=== PATIENT | male | born 1975 | race African-American/Black ===

== ENCOUNTER 2021-01-31 17:29 | Emergency (ER) | payer MEDICAID, SELFPAY ==
[2021-01-31 17:30] VITALS: BP 229/207; PULSE 106; RESP 24; TEMP 37.6; O2SAT 97; BMI 22.8
--- NOTE | 2021-01-31 18:41 | EDS_ITS ---
HPI History of Present Illness Chief Complaint: Abd Pain Informant: patient Narrative Narrative: 46-year-old male presenting to the emergency department with abdominal pain. Patient states that he has had abdominal pain in his upper abdomen for years and years. He states it got worse on December 03. Since that time he has been dealing with it taking Zantac. States he does not have a current doctor. Patient states that he has been eating very little because when he eats it hurts. He notes his stool has been darker than normal. No natalee blood with it. He denies any vomiting of blood. [facility], [facility] Medical History Lupus Home Medications pantoprazole [Protonix] 40 mg PO DAILY #30 tab 01/31/21 [Rx Last Taken Unknown] sucralfate [Carafate] 1 g PO Q6H #56 tab 01/31/21 [Rx Last Taken Unknown] Allergy/AdvReac Type Severity Reaction Status Date / Time No Known Allergies Allergy Verified 01/31/21 17:34 Social History (Updated 01/31/21 @ 18:[address] Inderjit Aguilar DO) current gender identity: male Smoking Status: Current every day smoker tobacco type: cigars ROS ROS ED Constitutional Constitutional ED: Denies chills or weight loss Eyes Eyes: Denies change in vision or diplopia ENT ENT ED: Denies ear pain, rhinorrhea or sore throat Cardiovascular Cardiovascular: Denies chest pain, orthopnea, palpitations or racing heartbeat Respiratory/Chest Respiratory/Chest: Denies cough, dyspnea or orthopnea Gastrointestinal Gastrointestinal: Reports abdominal pain; Denies diarrhea, nausea or vomiting Genitourinary Genitourinary ED: Denies dysuria, hematuria or urinary frequency Musculoskeletal Musculoskeletal: Denies arthralgias or myalgias Integumentary Denies abscess or rash Neurologic Neurologic: Denies headache(s) or weakness Psychiatric Psychiatric: Denies anxiety, depression, suicidal ideation or suicidal thoughts Endocrine Endocrinology: Denies polydipsia, polyphagia or polyuria Allergic/Immunologic Allergic/Immunologic ED: Denies mouth swelling, tongue swelling or urticaria EXAM Physical Exam Narrative Exam Narrative: Patient appears uncomfortable holding his abdomen pacing around the room Const Vital Signs: 01/31/21 17:30 01/31/21 20:16 Temperature 99.6 F H Temperature Source Oral Pulse Rate 106 H 78 Respiratory Rate 24 H 18 Blood Pressure 229/207 H 133/102 H Blood Pressure Mean 214 112 Pulse Ox 97 97 Oxygen Delivery Method Room Air Room Air Positive well nourished and well developed General Appearance ED: well developed HEENT Reports normocephalic, head/scalp atraumatic, TM's clear and moist mucous membranes Negative for trauma Tympanic Membrane ED: Yes TM's clear Eyes PERRL and EOMs intact bilaterally Neck no lymphadenopathy, supple and no JVD Resp normal respiratory effort and clear to auscultation bilaterally Cardio regular rate, regular rhythm and no murmurs GI Auscultation: normoactive bowel sounds Palpation: soft, tender epigastric and guarding; Negative for rebound tenderness present Back/Spine no CVA tenderness and normal ROM Extremity normal to inspection General Extremety ED: Negative for edema General Extremity: Negative for edema Neuro oriented x3 and CN's II-XII intact bilaterally Sensorium / Orientation: alert Motor Exam: strength 5/5 throughout Psych mental status grossly normal Mood & Affect: Negative for depressed or tearful Skin no rashes or lesions noted and no wounds MDM MDM MDM Narrative Medical decision making narrative: Patient's hemoglobin 15.8 with a white count of 4.9. CMP negative. Lipase 36. Patient received a GI cocktail which he states did help his pain he also received morphine and Zofran and fluids. Think the patient most likely has gastritis versus stomach ulcer. We will place him on Pro tonix and Carafate. I will refer him to gastroenterology. Patient was advised to monitor his stool and return if worsening or concerns Lab Data Attestation: I reviewed the patient's lab results. Labs: Laboratory Results - last 24 hr 01/31/21 01/31/21 18:32 18:32 WBC 4.9 RBC 5.30 Hgb 15.8 Hct 48.2 MCV 90.9 MCH 29.8 MCHC 32.8 RDW Std Deviation 45.5 H RDW Coeff of Tristen 13.4 Plt Count 274 MPV 8.4 Immature Gran % (Auto) 0.200 Neut % (Auto) 43.8 L Lymph % (Auto) 43.3 H [place] % (Auto) 8.0 Eos % (Auto) 4.1 Baso % (Auto) 0.6 Absolute Neuts (auto) 2.1 Absolute Lymphs (auto) 2.11 Nucleated RBC % 0 Sodium 141 Potassium 3.5 Chloride 106 Carbon Dioxide 27.0 Anion Gap 8 BUN 8 Creatinine 0.89 Estim Creat Clear Calc 121.76 Est GFR (MDRD) Af Amer 119 Est GFR (MDRD) Non-Af 98 BUN/Creatinine Ratio 9.0 L Glucose 97 Calcium 8.9 Total Bilirubin 0.40 AST 13 L ALT 23 Alkaline Phosphatase 85 Total Protein 7.8 Albumin 3.8 Globulin 4.0 Albumin/Globulin Ratio 1.0 Lipase 36 L Discharge Plan Triage Chief Complaint: Abd Pain ED Provider: Inderjit Aguilar Dx/Rx/DC Orders Clinical Impression: Gastritis, Abdominal pain, acute Instructions: ED PEPTIC ULCER vs GASTRITIS Prescriptions: New pantoprazole [Protonix] 40 mg tablet,delayed release (DR/EC) 40 mg PO DAILY Qty: 30 RF: 0 sucralfate [Carafate] 1 gram tablet 1 g PO Q6H Qty: 56 RF: 0 Primary Care Provider: Care Physician,No Primary Referrals: Friend,Mitchell, DO [STAFF PHYSICIAN] - As soon as possible Care Physician,No Primary [Primary Care Provider] - Disposition Disposition: Home, Self Care
[2021-01-31 19:04] LABS: Absolute Lymphocyte Count 2.11 X10^3/uL (0.83-4.51); Absolute Neutrophil Count 2.1 X10^3/uL (2.0-7.7); Basophil# 0.03 X10^3/uL; Basophil% 0.6 % (0-1); Eosinophils% 4.1 % (0-5); Hematocrit 48.2 % (40-54); Hemoglobin 15.8 g/dL (13.0-16.5); Lymphocyte # 2.11 X10^3/ul (0.83-4.51); Lymphocyte % 43.3 % (19-41); Mean Corp Hgb Conc 32.8 g/dL (32-36); Mean Corpuscular Hgb 29.8 pg (27.0-32.0); Mean Corpuscular Volume 90.9 fL (80-94); Mean Platelet Vol. 8.4 fl (6.2-12.0); Monocyte# 0.39 X10^3/uL; NRBC Flagged by Analyzer 0 % (0-5); Neutrophil # 2.13 X10^3/uL (2.7-7.7); Neutrophil % 43.8 % (47-70); Platelet Count 274 K/mm3 (150-450); RBC Distribution Width CV 13.4 % (11.6-14.6); RBC Distribution Width SD 45.5 fl (35.1-43.9); White Blood Count 4.9 K/mm3 (4.4-11.0)
[2021-01-31] MEDS: 0.9% Normal Saline 1,000 ML 1000 ML IV (19:07)
[2021-01-31] MEDS: Morphine 4 MG/ML Syringe IV (19:07)
[2021-01-31] MEDS: Ondansetron 4 MG/2 ML Vial IV (19:07)
[2021-01-31] MEDS: Mag Hydrox/Al Hydrox/Simeth 30 ML UDC PO (19:08)
[2021-01-31 19:17] LABS: AST(SGOT) 13 U/L (15-37); Alanine Aminotransfer ALT/SGPT 23 U/L (16-61); Albumin, Serum 3.8 g/dL (3.2-5.0); Alkaline Phosphatase 85 U/L (45-117); Anion Gap 8 (5-15); BUN 8 mg/dL (7-18); Calcium,Total 8.9 mg/dL (8.5-10.1); Chloride 106 mmol/L (98-107); Creatinine, Serum 0.89 mg/dL (0.70-1.30); EST Glomerular Filtration Rate 98 mL/min (>60); Est Glom Filt Rate - Afr Amer 119 mL/min (>60); Estimated Creatinine Clearance 121.76 ml/min; Glucose 97 mg/dL (74-106); Lipase 36 U/L (73-393); Potassium 3.5 mmol/L (3.5-5.1); Protein, Total 7.8 g/dL (6.4-8.2); Sodium Level 141 mmol/L (136-145)
[2021-01-31 20:16] VITALS: BP 133/102; PULSE 78; RESP 18; O2SAT 97
[2021-01-31] MEDS: Pantoprazole Sodium 40 MG Tablet PO (20:42)
[2021-01-31] MEDS: Sucralfate 1 GM Tablet PO (20:42)
[2021-01-31 20:46] VITALS: RESP 16
== END 2021-01-31 20:47 | disposition home or self-care (01) ==
PROVIDERS: Emergency Provider Emergency Medicine
DX: K29.70 Gastritis, unspecified, without bleeding (principal); F17.290 Nicotine dependence, other tobacco product, uncomplicated
CPT/HCPCS: 80053; 83690; 85025; 96374; 96375; 99283; J7030; A4216; J2405

== ENCOUNTER 2021-03-23 10:25 | Emergency (ER) | payer MEDICAID, SELFPAY ==
[2021-03-23 10:26] VITALS: BP 130/97; PULSE 93; RESP 17; TEMP 37; O2SAT 98; BMI 22.8
[2021-03-23 11:17] VITALS: RESP 18
--- NOTE | 2021-03-23 11:31 | ED.VIS.LOWEX ---
HPI History of Present Illness HPI Narrative: Patient presents with right foot pain that became worse over the last several days. Patient states that he recently moved to the area and has been doing more walking than usual. Patient states he normally walks with a cane. Patient states he has been unable to get his cane over the last couple of days. Patient states his pain is constant and aching. Patient states it is over the forefoot. Patient denies any trauma or injury. Patient also admits to some pain in his stomach. Patient states he has a history of a bleeding ulcer. Patient states he ran out of his Carafate and pantoprazole. Chief Complaint: Lower Extremity Injury Informant: patient Onset/Context/Timing Onset: Month(s) Context: Gradual Onset Timing: Continuous Location: Right forefoot Worsened by: Ambulating Relieved by: Nothing Associated Symptoms Associated Symptoms: Negative for Parasthesia, Weakness and Loss of Funtion PFSH FOR[facility]LY [facility], [facility] Medical History Lupus Home Medications pantoprazole [Protonix] 40 mg PO DAILY #30 tab 01/31/21 [Rx Last Taken Unknown] sucralfate [Carafate] 1 g PO Q6H #56 tab 01/31/21 [Rx Last Taken Unknown] tramadol 50 mg PO Q4H PRN PRN 3 Days #10 tab 03/23/21 [Rx Last Taken Unknown] Allergy/AdvReac Type Severity Reaction Status Date / Time No Known Allergies Allergy Verified 03/23/21 11:17 Social History Smoking Status: Light Smoker (<10/day) ROS ROS ED Constitutional Constitutional ED: Denies chills or fever(s) Eyes Eyes: Denies blurry vision or change in vision ENT ENT ED: Denies rhinorrhea or sore throat Cardiovascular Cardiovascular: Denies chest pain or palpitations Respiratory/Chest Respiratory/Chest: Denies cough or dyspnea Gastrointestinal Gastrointestinal: Reports abdominal pain, nausea and vomiting Genitourinary Genitourinary ED: Denies dysuria or hematuria Musculoskeletal Musculoskeletal: Denies back pain or neck pain Integumentary Denies abscess or rash Neurologic Neurologic: Denies headache(s) or weakness Allergic/Immunologic Allergic/Immunologic ED: Denies mouth swelling or urticaria EXAM Physical Exam Const Vital Signs: 03/23/21 10:26 03/23/21 11:17 Temperature 98.6 F Temperature Source Temporal Pulse Rate 93 Respiratory Rate 17 18 Blood Pressure 130/97 H Blood Pressure Mean 108 Pulse Ox 98 Oxygen Delivery Method Room Air Positive well nourished and well developed General Appearance ED: well developed HEENT Reports moist mucous membranes Neck full ROM Resp normal respiratory effort and clear to auscultation bilaterally Cardio regular rate and regular rhythm GI non-distended Auscultation: normoactive bowel sounds Palpation: soft and tender epigastric, LUQ and RUQ; Negative for guarding or rebound tenderness present Extremity Extremity Narrative: There is some mild tenderness over the right forefoot across the metatarsals. There is no edema or ecchymosis. There is no deformity. No bony crepitance or step-off. Pedal pulses are equal bilaterally. Capillary refill was less than 2 seconds in all digits. Sensation was intact to light touch in all digits. Neuro oriented x3, CN's II-XII intact bilaterally, moves all extremities and no sensory deficits noted Sensorium / Orientation: alert Motor Exam: strength 5/5 throughout Psych mental status grossly normal MDM MDM MDM Narrative Medical decision making narrative: I do not feel x-rays are necessary at this time. Patient states he has an appoint with Dr. Coto tomorrow. Patient was instructed to keep this appointment. Patient was given refills for his Carafate and Protonix. Patient was given a prescription for a short course of tramadol. Patient was instructed to follow-up with his primary care physician in 5 to 7 days. Patient understood and was agreeable with the plan. All questions were answered. Discharge Plan Triage Chief Complaint: Lower Extremity Injury ED Provider: Jere Michel Dx/Rx/DC Orders Clinical Impression: Acute pain of right foot, Abdominal pain, epigastric Instructions: ED Foot Sprain Prescriptions: New tramadol 50 MG tablet 50 mg PO Q4H PRN PRN (Reason: Pain) 3 Days Qty: 10 RF: 0 Continued pantoprazole [Protonix] 40 mg tablet,delayed release (DR/EC) 40 mg PO DAILY Qty: 30 RF: 0 sucralfate [Carafate] 1 gram tablet 1 g PO Q6H Qty: 56 RF: 0 Primary Care Provider: Care Physician,No Primary Referrals: Ab Mayer MD [STAFF PHYSICIAN] - 5-7 Days Care Physician,No Primary [Primary Care Provider] - Disposition Disposition: Home, Self Care
[2021-03-23 11:47] VITALS: RESP 18
--- NOTE | 2021-03-23 11:47 | ED.RN ---
THIS NURSE REVIEWED D/C INSTRUCTIONS WITH PT. PT VERBALIZED UNDERSTANDING OF INSTRUCTIONS. PT DENIES FURTHER NEEDS OR QUESTIONS AT THIS TIME. PT AMBULATES FROM THE DEPARTMENT AT THIS TIME
== END 2021-03-23 11:48 | disposition home or self-care (01) ==
PROVIDERS: Emergency Provider Emergency Medicine
DX: R10.13 Epigastric pain (principal); M79.671 Pain in right foot; F17.200 Nicotine dependence, unspecified, uncomplicated
CPT/HCPCS: 99281

== ENCOUNTER 2021-05-17 11:12 | Emergency (ER) | payer MEDICAID, SELFPAY ==
[2021-05-17 11:15] VITALS: BP 136/89; PULSE 82; RESP 17; TEMP 36.4; O2SAT 100; BMI 21.4
--- NOTE | 2021-05-17 11:31 | EDS_ITS ---
HPI <JASMIN Dunham - Last Filed: 05/17/21 11:48> History of Present Illness Chief Complaint: Med Refill Narrative Narrative: Patient states he has a history of stomach ulcers and ran out of his medications 2 weeks ago. Since then he has had intermittent epigastric pain and vomited bile. No blood in his stool. He is here requesting refills of the medications. He states our ER previously referred him to Dr. Douglas and he needs to call to make an appointment. Today he has no pain. PFSH <JASMIN Dunham Last Filed: 05/17/21 11:48> PFSH Medical History Lupus Home Medications pantoprazole [Protonix] 40 mg PO DAILY #30 tab 03/23/21 [Rx Last Taken Unknown] sucralfate [Carafate] 1 g PO Q6H #56 tab 03/23/21 [Rx Last Taken Unknown] pantoprazole 40 mg PO DAILY #30 tab 05/17/21 [Rx Last Taken Unknown] sucralfate 1 g PO Q6H #120 tab 05/17/21 [Rx Last Taken Unknown] Allergy/AdvReac Type Severity Reaction Status Date / Time No Known Allergies Allergy Verified 05/17/21 11:14 Social History Smoking Status: Light Smoker (<10/day) ROS <JASMIN Dunham - Last Filed: 05/17/21 11:48> ROS ED ROS Narrative Constitutional: Negative for fever, chills, malaise. Eyes: Negative for visual change. ENT: Negative for sore throat, ear pain, rhinorrhea. CVS: Negative for palpitations, chest pain, syncope. Respiratory: Negative for shortness of breath, cough, orthopnea. GI: Negative for abdominal pain, nausea, vomiting, diarrhea, constipation, melena, hematochezia. : Negative for dysuria, hematuria or frequency. Neuro: Negative for headache, motor/sensory dysfunction. Skin: Negative for rash, abscess, or wound. Heme: Negative for easy bruising, bleeding, lymphadenopathy. EXAM <JASMIN Duhnam Last Filed: 05/17/21 11:48> Physical Exam Narrative Exam Narrative: CONST: Patient sitting in no acute distress. EYES: Normal inspection. NECK: Normal inspection. RESP: No respiratory distress, CTAB. CVS: Regular rate and rhythm, no murmur, no gallop. ABD: Soft and nontender, no guarding or rebound, nondistended, no hepatosplenomegaly. Back: Normal inspection, no CVA tenderness. SKIN: Color normal, no rash, warm, dry, intact. EXTREMITIES: Normal appearance, no pedal edema. NEURO: Oriented x4. PSYCH: Normal affect. Const Vital Signs: 05/17/21 11:15 Temperature 97.5 F L Temperature Source Temporal Pulse Rate 82 Respiratory Rate 17 Blood Pressure 136/89 H Blood Pressure Mean 104 Pulse Ox 100 Oxygen Delivery Method Room Air <Dr. Lamar Ball MD - Last Filed: 05/17/21 11:55> Physical Exam Const Vital Signs: 05/17/21 11:15 Temperature 97.5 F L Temperature Source Temporal Pulse Rate 82 Respiratory Rate 17 Blood Pressure 136/89 H Blood Pressure Mean 104 Pulse Ox 100 Oxygen Delivery Method Room Air [facility] <JASMIN Dunham - Last Filed: 05/17/21 11:48> [facility] Narrative Medical decision making narrative: Patient presented for refills of his GI medications. I refilled pantoprazole 40 mg once daily and sucralfate 1 g every 6 hours. He was instructed to decrease smoking and alcohol use as well as avoid spicy foods. He will follow up with GI and has Dr. Douglas's contact information. He was discharged in stable condition. 1. Medication refill 2. History of GERD <Dr. Lamar Ball MD - Last Filed: 05/17/21 11:55> [facility] Treatment and Re-Evaluation Comments:: Patient seen and evaluated with plc programmer. Patient was independently interviewed and examined. Patient complains of recurrent epigastric pain after running out of his reflux medication approximately 3 weeks ago. He has had some vomiting but denies hematemesis. He has already been referred to Dr. Douglas for GI evaluation. Physical exam Head neck examination unremarkable. Heart is regular rate and rhythm. Lung sounds are clear. Abdomen is soft with no focal tenderness on exam. Hypoactive bowel sounds are present. Patient is given refills of Protonix and sucralfate with first dose given here. Patient is to follow-up with Dr. Douglas as previously referred. Discharge Plan Triage Chief Complaint: Med Refill ED Provider: Ute Swanson Dx/Rx/DC Orders Instructions: ED GERD (Adult), Med Refill Prescriptions: New pantoprazole 40 mg tablet,delayed release (DR/EC) 40 mg PO DAILY Qty: 30 RF: 1 sucralfate 1 gram tablet 1 g PO Q6H Qty: 120 RF: 0 No Action sucralfate [Carafate] 1 gram tablet 1 g PO Q6H Qty: 56 RF: 0 pantoprazole [Protonix] 40 mg tablet,delayed release (DR/EC) 40 mg PO DAILY Qty: 30 RF: 0 Primary Care Provider: Care Physician,No Primary Referrals: Care Physician,No Primary [Primary Care Provider] - Activity Restrictions/Additional Instructions: Decrease smoking and avoid alcohol. Do not eat spicy foods as this worsen stomach ulcers. Take the medications and call the gastrointestinal doctor for an appointment. Disposition Disposition: Home, Self Care
[2021-05-17] MEDS: Pantoprazole Sodium 40 MG Tablet PO (12:10)
[2021-05-17] MEDS: Sucralfate 1 GM Tablet PO (12:10)
== END 2021-05-17 12:12 | disposition home or self-care (01) ==
PROVIDERS: Emergency Provider Physician Assistant; Visit Provider Physician Assistant
DX: Z76.0 Encounter for issue of repeat prescription (principal); R10.13 Epigastric pain; F17.200 Nicotine dependence, unspecified, uncomplicated; K21.9 Gastro-esophageal reflux disease without esophagitis
CPT/HCPCS: 99283

== ENCOUNTER 2021-06-06 10:56 | Emergency (ER) | payer MEDICAID, SELFPAY ==
[2021-06-06 10:57] VITALS: BP 123/81; PULSE 107; RESP 16; TEMP 36; O2SAT 98; BMI 21.9
--- NOTE | 2021-06-06 11:19 | EDS_ITS ---
HPI History of Present Illness Chief Complaint: Dental Informant: patient Onset/Context/Timing Onset: Days Context: Gradual Onset Timing: Continuous Current Severity: Mild Maximum Severity: Mild Associated Symptoms Assocated Symptom - Dental: fever, jaw swelling, face swelling, cold sensitivity and hot sensitivity Narrative Narrative: 46-year-old male history of a lupus and reflux. Has had left lower jaw pain and swelling last several days. No fever. No trouble swallowing. Prior similar symptoms: Yes Recent Illness/Hospitalization: No PFSH PFSH Medical History GERD (gastroesophageal reflux disease) Lupus Home Medications pantoprazole [Protonix] 40 mg PO DAILY #30 tab 03/23/21 [Rx Last Taken Unknown] sucralfate [Carafate] 1 g PO Q6H #56 tab 03/23/21 [Rx Last Taken Unknown] penicillin V potassium 500 mg PO 4X/DAY #40 tab 06/06/21 [Rx Last Taken Unknown] Allergy/AdvReac Type Severity Reaction Status Date / Time No Known Allergies Allergy Verified 05/17/21 11:14 Social History Smoking Status: Light Smoker (<10/day) ROS ROS ED ROS Narrative Denies. Review of Systems ROS Unobtainable: Denies due to encephalopathy Constitutional Constitutional ED: Denies fever(s) Eyes Eyes: Denies change in vision ENT ENT ED: Denies ear pain Cardiovascular Cardiovascular: Denies chest pain Respiratory/Chest Respiratory/Chest: Denies dyspnea Gastrointestinal Gastrointestinal: Denies abdominal pain Genitourinary Genitourinary ED: Denies dysuria Musculoskeletal Musculoskeletal: Denies myalgias Integumentary Denies rash Neurologic Neurologic: Denies headache(s) Psychiatric Psychiatric: Denies depression Endocrine Endocrinology: Denies polyuria Hematologic/Lymphatic Hematologic/Lymphatic: Denies easy bruising Allergic/Immunologic Allergic/Immunologic ED: Denies urticaria EXAM Physical Exam Narrative Exam Narrative: 46-year-old male no acute distress. Vital signs stable afebrile. H EENT exam is multiple missing teeth. Left lower jaw the last premolar there is swelling along the gumline. There is no fluctuance. Nothing to drain. No trismus. Soft tissues in the floor of the mouth are normal. Posterior pharynx normal. There is very minimal swelling to the outside of the jaw. Neck nontender no lymphadenopathy. Lungs are clear. Heart regular rate and rhythm. Otherwise exam unremarkable. Exam consistent with a dental infection. Possibly early abscess. Nothing to drain at this time. Const Vital Signs: 06/06/21 10:57 Temperature 96.8 F L Temperature Source Temporal Pulse Rate 107 H Respiratory Rate 16 Blood Pressure 123/81 H Blood Pressure Mean 95 Pulse Ox 98 Oxygen Delivery Method Room Air Positive well nourished and well developed; Negative for obese, cachectic, contractures or unkempt General Appearance ED: well developed and NAD; Negative for unkempt, cachectic or contractures Nutritional Appearance: Negative for cachectic or obese HEENT Negative for trauma or tenderness Mouth ED: Yes oral and palatal mucosa normal, Yes lips normal, Yes tongue normal, Yes salivary gland normal, No mouth trauma and No salivary gland abnormal Mouth: oral and palatal mucosa normal, lips normal, tongue normal, salivary gland normal, No mouth trauma and No salivary gland abnormal Teeth and Gingiva: abnormal tooth and associated gingiva, caries, gingiva abnormal and poor dentition; Negative for teeth discoloration Throat: posterior oropharynx normal Eyes PERRL and EOMs intact bilaterally Neck no lymphadenopathy, supple and no JVD General: normal visual inspection; Negative for anterior neck swelling or tenderness Lymph Lymphatic: no lymphadenopathy noted; Negative for lymphadenopathy Chest Wall inspection of chest normal and palpation of chest normal Resp normal respiratory effort, no retractions and clear to auscultation bilaterally Cardio regular rate, regular rhythm, S1 normal heart sound, S2 normal heart sound and no murmurs GI normal to inspection, nondistended, normoactive bowel sounds, non-tender and non-distended Palpation: soft Extremity normal to inspection General Extremety ED: Negative for edema General Extremity: Negative for edema Neuro oriented x3, moves all extremities and no focal motor deficits Sensorium / Orientation: alert, oriented to person, oriented to place and oriented to time Psych mental status grossly normal Appearance: Negative for unkempt Skin no rashes or lesions noted and no wounds MDM MDM MDM Narrative Medical decision making narrative: Patient has a left lower jaw dental infection. Will be started on Pen-Vee K 500 4 times daily for 10 days. Follow- up with a dentist. Motrin and Tylenol for pain. Warm salt water gargling. Discharge Plan Triage Chief Complaint: Dental ED Provider: Yomi Cortez Dx/Rx/DC Orders Clinical Impression: Dental infection Instructions: ED Dental Pain, ED Dental Abscess Prescriptions: New penicillin V potassium 500 mg tablet 500 mg PO 4X/DAY Qty: 40 RF: 0 No Action sucralfate [Carafate] 1 gram tablet 1 g PO Q6H Qty: 56 RF: 0 pantoprazole [Protonix] 40 mg tablet,delayed release (DR/EC) 40 mg PO DAILY Qty: 30 RF: 0 Primary Care Provider: Care Physician,No Primary Referrals: Kaylie Manjarrez [NON-STAFF] - As soon as possible Care Physician,No Primary [Primary Care Provider] - Activity Restrictions/Additional Instructions: Ice to the outside your jaw. Warm salt water gargling 3-5 times a day. Motrin and Tylenol for pain. Follow-up with a local dentist as soon as possible. Penicillin 1 pill 4 times a day for the next 10 days. Disposition Disposition: Home, Self Care
[2021-06-06] MEDS: Penicillin Vk 250 MG Tablet 500 MG PO (11:40)
== END 2021-06-06 11:42 | disposition home or self-care (01) ==
PROVIDERS: Emergency Provider Emergency Medicine; Visit Provider Emergency Medicine
DX: K04.7 Periapical abscess without sinus (principal); F17.200 Nicotine dependence, unspecified, uncomplicated; K21.9 Gastro-esophageal reflux disease without esophagitis; L93.2 Other local lupus erythematosus
CPT/HCPCS: 99283

== ENCOUNTER 2021-06-23 18:33 | Emergency (ER) | payer MEDICAID, SELFPAY ==
[2021-06-23 18:34] VITALS: BP 130/88; PULSE 90; RESP 18; TEMP 37; O2SAT 98; BMI 21.9
--- NOTE | 2021-06-23 18:44 | ED.VIS.DENTA ---
HPI History of Present Illness Chief Complaint: Abd Pain Detail of Chief Complaint: Right lower tooth pain not abdominal pain Informant: patient Onset/Context/Timing Onset: Days Context: Sudden Onset Timing: Continuous and Waxes and wanes Quality: Tooth #31 Location: Pain Current Severity: Mild Maximum Severity: Moderate Worsened by: Chewing Associated Symptoms Assocated Symptom - Dental: Negative for fever, jaw swelling, face swelling, cold sensitivity or hot sensitivity Narrative Narrative: Patient is a 46-year-old male with history of discoid lupus who presents with dental pain for the past 2 to 3 days. He localizes to the right lower molar. He reports pain is worse with chewing. He denies fever, chills night sweats. Denies history of medic fever, SBE, heart murmur or being on immunosuppressive meds. He is on no medication for his discoid lupus. He denies facial swelling or redness. He denies nausea or vomiting. Prior similar symptoms: No Recent Illness/Hospitalization: No PFSH PFS Medical History GERD (gastroesophageal reflux disease) Lupus Home Medications pantoprazole [Protonix] 40 mg PO DAILY #30 tab 03/23/21 [Rx Last Taken Unknown] sucralfate [Carafate] 1 g PO Q6H #56 tab 03/23/21 [Rx Last Taken Unknown] penicillin V potassium 500 mg PO 4X/DAY #40 tab 06/06/21 [Rx Last Taken Unknown] hydrocodone-acetaminophen 1 tab PO Q6H PRN PRN 3 Days #10 tablet 06/23/21 [Rx Last Taken Unknown] pantoprazole [Protonix] 20 mg PO DAILY #30 tab 06/23/21 [Rx Last Taken Unknown] penicillin V potassium 500 mg PO 4X/DAY #28 tab 06/23/21 [Rx Last Taken Unknown] Allergy/AdvReac Type Severity Reaction Status Date / Time No Known Allergies Allergy Verified 06/23/21 18:35 Social History (Updated 06/23/21 @ 18:[address] Dorian Priest MD) household members: other Smoking Status: Current every day smoker tobacco type: cigars substance use type: does not use ROS ROS ED Constitutional Constitutional ED: Denies chills, fever(s), subjective, sweats or weight loss Eyes Eyes: Denies blurry vision or change in vision ENT ENT ED: Reports other Details: Dental pain described in the HPI ; Denies ear pain, rhinorrhea or sore throat Cardiovascular Cardiovascular: Denies chest pain, palpitations or racing heartbeat Respiratory/Chest Respiratory/Chest: Denies cough, dyspnea or dyspnea on exertion Gastrointestinal Gastrointestinal: Denies nausea or vomiting Integumentary Reports rash and other Details: Patient has rash due to discoid lupus over the area of the body of mandible right side Hematologic/Lymphatic Hematologic/Lymphatic: Denies easy bleeding or easy bruising Allergic/Immunologic Allergic/Immunologic ED: Denies mouth swelling, tongue swelling or urticaria EXAM Physical Exam Const Vital Signs: 06/23/21 18:34 Temperature 98.6 F Temperature Source Temporal Pulse Rate 90 Respiratory Rate 18 Blood Pressure 130/88 H Blood Pressure Mean 102 Pulse Ox 98 Oxygen Delivery Method Room Air Positive well nourished and well developed General Appearance ED: well developed and NAD; Negative for pallor HEENT Reports TM's clear and other There is no trismus. Negative for trauma or tenderness Tympanic Membrane ED: Yes TM's clear Mouth ED: Yes oral and palatal mucosa normal, Yes lips normal, Yes tongue normal, Yes salivary gland normal, No mouth trauma and No salivary gland abnormal Mouth: oral and palatal mucosa normal, lips normal, tongue normal, salivary gland normal, No mouth trauma and No salivary gland abnormal Teeth and Gingiva: caries, gingiva abnormal, poor dentition and teeth discoloration; Negative for abnormal tooth and associated gingiva Throat: posterior oropharynx normal Eyes PERRL and EOMs intact bilaterally General Eye ED: Negative for pale conjunctiva or scleral icterus Neck no lymphadenopathy, supple and no JVD General: normal visual inspection; Negative for anterior neck swelling, tenderness or submandibular swelling Resp normal respiratory effort and clear to auscultation bilaterally Cardio regular rate, regular rhythm, S1 normal heart sound, S2 normal heart sound and no murmurs Neuro oriented x3 and CN's II-XII intact bilaterally Sensorium / Orientation: alert Psych mental status grossly normal Skin General Skin Exam: Negative for pallor MDM MDM MDM Narrative Medical decision making narrative: Patient has pain with palpation of the second right lower molar, tooth #31. He also has what appears to be drainage from the area. Suspect patient has a apical abscess with fistulization. Will treat with antibiotic and since he has history of bleeding ulcer he was given a short course of hydrocodone. Discharge Plan Triage Chief Complaint: Abd Pain ED Provider: Dorian Priest Dx/Rx/DC Orders Clinical Impression: Apical alveolar abscess, Dental fistula, Dental caries extending into dentin, Chronic periodontal disease Instructions: ED Dental Abscess Prescriptions: New penicillin V potassium 250 MG tablet 500 mg PO 4X/DAY Qty: 28 RF: 0 hydrocodone-acetaminophen [hydrocodone-acetaminophen] 1 TABLET tablet 1 tab PO Q6H PRN PRN (Reason: Pain) 3 Days Qty: 10 RF: 0 pantoprazole [Protonix] 20 mg tablet,delayed release (DR/EC) 20 mg PO DAILY Qty: 30 RF: 0 No Action sucralfate [Carafate] 1 gram tablet 1 g PO Q6H Qty: 56 RF: 0 pantoprazole [Protonix] 40 mg tablet,delayed release (DR/EC) 40 mg PO DAILY Qty: 30 RF: 0 penicillin V potassium 500 mg tablet 500 mg PO 4X/DAY Qty: 40 RF: 0 Primary Care Provider: Care Physician,No Primary Referrals: Care Physician,No Primary [Primary Care Provider] - Dentist,Your [STAFF PHYSICIAN] - 1-2 Weeks Disposition Disposition: Home, Self Care
[2021-06-23] MEDS: Penicillin Vk 250 MG Tablet 500 MG PO (18:50)
[2021-06-23] MEDS: HYDROcodone Bitartrate/Apap 5/325 Tablet PO (19:01)
== END 2021-06-23 19:04 | disposition home or self-care (01) ==
LOC: ED 18:54
PROVIDERS: Emergency Provider Emergency Medicine; Visit Provider Emergency Medicine
DX: K04.7 Periapical abscess without sinus (principal); K02.9 Dental caries, unspecified; F17.200 Nicotine dependence, unspecified, uncomplicated; K04.6 Periapical abscess with sinus; K21.9 Gastro-esophageal reflux disease without esophagitis; L93.2 Other local lupus erythematosus
CPT/HCPCS: 99282

== ENCOUNTER 2021-07-22 18:48 | Emergency (ER) | payer MEDICAID, SELFPAY ==
[2021-07-22 18:49] VITALS: BP 128/82; PULSE 89; RESP 16; TEMP 36.2; O2SAT 100; BMI 21.9
--- NOTE | 2021-07-22 20:05 | EX.ED.DYSGE1 ---
HPI History of Present Illness Chief Complaint: Abd Pain Detail of Chief Complaint: Abdominal pain and dental Informant: patient Narrative Narrative: Patient presents with epigastric pain and dental pain. He states he was told years ago that he had a stomach ulcer but has never had an EGD study performed. He was given Protonix and Carafate here in the past that helped him. He ran out of the medication and states the pain has returned. He has yet to follow-up with GI. He also complains of increased dental pain over the past 4 days. [facility] Medical History GERD (gastroesophageal reflux disease) Lupus Home Medications pantoprazole 40 mg PO DAILY #30 tab 07/22/21 [Rx Last Taken Unknown] penicillin V potassium 500 mg PO 4X/DAY #40 tab 07/22/21 [Rx Last Taken Unknown] sucralfate [Carafate] 1 g PO BID #60 tab 07/22/21 [Rx Last Taken Unknown] Allergy/AdvReac Type Severity Reaction Status Date / Time No Known Allergies Allergy Verified 07/22/21 18:50 Social History household members: other Smoking Status: Light Smoker (<10/day) substance use type: does not use ROS ROS ED Constitutional Constitutional ED: Denies chills or fever(s) Eyes Eyes: Denies change in vision ENT ENT ED: Reports other Details: Right-sided dental pain ; Denies sore throat Cardiovascular Cardiovascular: Denies chest pain Respiratory/Chest Respiratory/Chest: Denies cough or dyspnea Gastrointestinal Gastrointestinal: Reports abdominal pain; Denies diarrhea, nausea or vomiting Musculoskeletal Musculoskeletal: Denies back pain Integumentary Denies rash Neurologic Neurologic: Denies headache(s) or weakness Allergic/Immunologic Allergic/Immunologic ED: Denies urticaria EXAM Physical Exam Const Vital Signs: 07/22/21 18:49 Temperature 97.2 F L Temperature Source Temporal Pulse Rate 89 Respiratory Rate 16 Blood Pressure 128/82 H Blood Pressure Mean 97 Pulse Ox 100 Oxygen Delivery Method Room Air Positive well nourished and well developed General Appearance ED: well developed HEENT Reports moist mucous membranes Eyes PERRL and EOMs intact bilaterally Eyes Narrative: No facial edema or erythema. Posterior pharynx exam normal. Right mandibular third molar is tender to palpation. Minimal surrounding gum edema. Right third maxillary molar is rotted to the gums with minimal tenderness. No trismus Neck supple Chest Wall inspection of chest normal and palpation of chest normal Resp normal respiratory effort and clear to auscultation bilaterally Cardio regular rate and regular rhythm GI non-tender Auscultation: hypoactive bowel sounds Palpation: soft Extremity normal to inspection Neuro oriented x3 and no sensory deficits noted Sensorium / Orientation: alert Motor Exam: strength 5/5 throughout Psych mental status grossly normal Skin no rashes or lesions noted [facility] Treatment and Re-Evaluation Narrative: Patient is given prescriptions for Protonix and Carafate. He will be treated with a course of Pen-Vee K. I encouraged him to use Tylenol instead of ibuprofen or Aleve given his epigastric pain. He is given a dental referral list as well as GI for follow-up. Discharge Plan Triage Chief Complaint: Abd Pain ED Provider: Lamar Ball Dx/Rx/DC Orders Clinical Impression: Pain, dental, Gastritis Instructions: ED Dental Pain, ED Gastritis (Adult) Prescriptions: New penicillin V potassium 500 MG tablet 500 mg PO 4X/DAY Qty: 40 RF: 0 pantoprazole 40 mg tablet,delayed release (DR/EC) 40 mg PO DAILY Qty: 30 RF: 0 sucralfate [Carafate] 1 gram tablet 1 g PO BID Qty: 60 RF: 0 Primary Care Provider: Care Physician,No Primary Referrals: Mitchell Douglas, DO [STAFF PHYSICIAN] - As soon as possible Care Physician,No Primary [Primary Care Provider] - Disposition Disposition: Home, Self Care Discharge Date/Time: 07/22/21 20:55
[2021-07-22] MEDS: Penicillin Vk 250 MG Tablet 500 MG PO (20:45)
[2021-07-22] MEDS: Pantoprazole Sodium 40 MG Tablet PO (20:45)
[2021-07-22] MEDS: Sucralfate 1 GM Tablet PO (20:54)
== END 2021-07-22 20:55 | disposition home or self-care (01) ==
LOC: ED 20:14
PROVIDERS: Emergency Provider Emergency Medicine; Visit Provider Emergency Medicine
DX: K08.89 Other specified disorders of teeth and supporting structures (principal); K29.70 Gastritis, unspecified, without bleeding; F17.200 Nicotine dependence, unspecified, uncomplicated
CPT/HCPCS: 99283

== ENCOUNTER 2021-09-05 11:19 | Emergency (ER) | payer MEDICAID, SELFPAY ==
[2021-09-05 11:21] VITALS: BP 127/94; PULSE 100; RESP 18; TEMP 36.8; O2SAT 100; BMI 22.6
--- NOTE | 2021-09-05 11:48 | EDS_ITS ---
HPI <MACKENZIE Saldaña - Last Filed: 09/05/21 11:55> History of Present Illness Chief Complaint: Abd Pain Narrative Narrative: 46-year-old male with history of lupus, acid reflux history of ulcers, presents to the emergency department for medication refill. Patient needs a medication of his Carafate as well as his pantoprazole. Patient has not been following up with any primary care physicians or GI specialist. Patient states that he does not know what to do because he cannot get his medication. Patient has been out of medicine for 2 weeks. And he is here for evaluation. Patient states that the pain is nothing new, he just wants his medication ref illed. [facility] <MACKENZIE Saldaña - Last Filed: 09/05/21 11:55> [facility] Medical History (Updated 09/05/21 @ 11:52 by MACKENZIE Saldaña) GERD (gastroesophageal reflux disease) Lupus Ulcer Home Medications pantoprazole 40 mg PO DAILY #30 tab 07/22/21 [Rx Last Taken Unknown] penicillin V potassium 500 mg PO 4X/DAY #40 tab 07/22/21 [Rx Last Taken Unknown] sucralfate [Carafate] 1 g PO BID #60 tab 07/22/21 [Rx Last Taken Unknown] pantoprazole 40 mg PO DAILY #30 tab 09/05/21 [Rx Last Taken Unknown] sucralfate 1 g PO BID #60 tab 09/05/21 [Rx Last Taken Unknown] Allergy/AdvReac Type Severity Reaction Status Date / Time No Known Allergies Allergy Verified 09/05/21 11:20 Social History household members: other Smoking Status: Light Smoker (<10/day) substance use type: does not use ROS <MACKENZIE Saldaña - Last Filed: 09/05/21 11:55> ROS ED ROS Narrative Constitutional: Negative for fever, chills, weight loss, weakness Eyes: Negative for vision loss, vision change, double vision ENT: Negative for any sore throat, ear pain, congestion Cardiovascular: Negative for any chest pain, tightness, palpitations Respiratory: Negative for any cough, sputum production, hemoptysis, dyspnea, dyspnea on exertion, orthopnea Gastrointestinal: Negative for any nausea, vomiting, diarrhea, constipation, blood in stool, blood in vomit. Positive for abdominal pain : Negative for any urinary frequency, dysuria, retention, blood in urine Muscle skeletal: Negative for any muscle joint pain, stiffness, myalgias, arthralgias, neck pain, back pain Neurological: Negative for any headache, syncope, numbness or tingling, dizziness Skin: Negative for any rashes, lumps, itching, abrasions, lacerations Psychiatric: Negative for any depression, anxiety, stress, suicidal ideation, homicidal ideation Hematologic: Negative for any easy bruising, excessive bruising, easy bleeding Allergies: Negative for any eczema, hives, rash EXAM <MACKENZIE Saldaña - Last Filed: 09/05/21 11:55> Physical Exam Narrative Exam Narrative: Vital signs reviewed. HEET: Head normocephalic atraumatic, TMs clear bilaterally. Posterior pharynx is clear, moist mucous membranes. Nares clear bilaterally. Neck: Supple with no lymphadenopathy or tenderness. No signs of meningismus, negative jolt sign. Cardiac: Regular rate and rhythm no murmurs gallops or rubs, equal peripheral pulses bilaterally. Respiratory: Lungs clear to auscultation bilaterally. No chest tenderness. Abdomen: Soft, nontender, nondistended. No abdominal bruit or pulsatile masses. No hepatosplenomegaly Extremities: No peripheral edema, no signs of gross trauma or deformity. Active full range of motion of all extremities. Neuro: Cranial nerves II through XII intact, no focal neurological deficits. Skin: Clean dry and intact with no rash, purpura, petechiae, vesicles or pustules. Backs/flank: No CVA tenderness, no midline spinal tenderness, no deformity. Psych: Normal mood and affect. No SI, HI or acute psychosis. Const Vital Signs: 09/05/21 11:21 Temperature 98.2 F Temperature Source Temporal Pulse Rate 100 Respiratory Rate 18 Blood Pressure 127/94 H Blood Pressure Mean 105 Pulse Ox 100 Oxygen Delivery Method Room Air Positive well nourished and well developed General Appearance ED: well developed <Dr. Anna Brennan DO - Last Filed: 09/08/21 22:32> Physical Exam Const Vital Signs: 09/05/21 11:21 Temperature 98.2 F Temperature Source Temporal Pulse Rate 100 Respiratory Rate 18 Blood Pressure 127/94 H Blood Pressure Mean 105 Pulse Ox 100 Oxygen Delivery Method Room Air [facility] <MACKENZIE Saldaña - Last Filed: 09/05/21 11:55> [facility] Narrative Medical decision making narrative: Patient appears well, patient appears nontoxic, vital signs are stable. Patient presents to the emergency department with complaints of upper abdominal pain which is chronic for the last 2 to 3 years. Patient is here for refill of his prescriptions. I did educate the patient regarding prescriptions and following up with a primary care provider. I did look at his insurance card, there is a primary care provider noted as well as the number. Patient will call this number after the holiday weekend. Patient will also be referred to Dr. Douglas who is a security installer in this area because he lives here now. At this time, patient instructed to return for any worsening symptoms. Patient is stable for discharge and will receive 1 month prescription of his medications. Lab Data Attestation: I reviewed the patient's lab results. <Dr. Anna Brennan DO - Last Filed: 09/08/21 22:32> [facility] Narrative Medical decision making narrative: I have personally performed a face to face assessment of the patient and have reviewed the KUN Note. I performed a substantive portion of the visit including all aspects of the following. My [place] findings include: Patient is a 46-year-old male presenting with worsening epigastric abdominal pain for the past 2 weeks. Patient reports he ran out of his pantoprazole and Carafate which had been helping. Patient has no other complaints. No report of any black or blood in his vomit or stool. No change in bowel habits. His vital signs are normal. Patient is given a refill for his antacid medicines as well as referral to GI and instructions on how to contact primary care doctor per his insurance card. Given that he does not have any other severe systemic symptoms this is more of a chronic issue exacerbated by running out of his medication I do not think emergent work-up is indicated at this time. Patient is agreeable with this plan of care. He is counseled on return precautions. Other additions or changes: [None] Discharge Plan Triage Chief Complaint: Abd Pain ED Midlevel Provider: Trever Mcconnell ED Provider: Anna Brennan Dx/Rx/DC Orders Clinical Impression: Gastroesophageal reflux disease Instructions: ED GERD (Adult) Prescriptions: New pantoprazole 40 mg tablet,delayed release (DR/EC) 40 mg PO DAILY Qty: 30 RF: 2 sucralfate 1 gram tablet 1 g PO BID Qty: 60 RF: 2 No Action penicillin V potassium 500 MG tablet 500 mg PO 4X/DAY Qty: 40 RF: 0 pantoprazole 40 mg tablet,delayed release (DR/EC) 40 mg PO DAILY Qty: 30 RF: 0 sucralfate [Carafate] 1 gram tablet 1 g PO BID Qty: 60 RF: 0 Primary Care Provider: Care Physician,No Primary Referrals: Friend,Mitchell, DO [STAFF PHYSICIAN] - Care Physician,No Primary [Primary Care Provider] - Activity Restrictions/Additional Instructions: You need to follow-up with the primary care doctor on your insurance card. I also referred you to security installer for further testing. For your prescriptions, I did give you 2 refills. Just follow the instructions on the pill bottles when you run out, again you have 2 refills. Print Language: Citizen Of [place] Disposition Disposition: Home, Self Care Discharge Date/Time: 09/05/21 12:33
== END 2021-09-05 12:33 | disposition home or self-care (01) ==
PROVIDERS: Emergency Provider Emergency Medicine; Visit Provider Emergency Medicine
DX: K21.9 Gastro-esophageal reflux disease without esophagitis (principal); F17.200 Nicotine dependence, unspecified, uncomplicated; L93.2 Other local lupus erythematosus; Z76.0 Encounter for issue of repeat prescription
CPT/HCPCS: 99282; A4216

== ENCOUNTER 2022-01-14 18:18 | Emergency (ER) | payer MEDICAID, SELFPAY ==
[2022-01-14 18:20] VITALS: BP 129/86; PULSE 96; RESP 16; TEMP 36.7; O2SAT 100; BMI 21.9
--- NOTE | 2022-01-14 20:53 | EDS_ITS ---
HPI History of Present Illness Chief Complaint: Med Refill Narrative Narrative: 7-year-old male with history of stomach ulcers presenting for a medication refill. He states he is out of his Carafate and his Protonix. He states he does not follow-up with anybody on a regular basis. He states that from time to time he comes to the ER to have his meds refilled. He is not having significant abdominal pain. No nausea or vomiting. He states he has a history of bleeding ulcers but has not noticed any black or bloody stools or black or bloody emesis. He feels otherwise well [facility] Medical History GERD (gastroesophageal reflux disease) Lupus Ulcer Home Medications pantoprazole 40 mg tablet,delayed release 40 mg PO DAILY #30 tabs 07/22/21 [Rx Last Taken Unknown] penicillin V potassium 500 mg tablet 500 mg PO 4X/DAY #40 tabs 07/22/21 [Rx Last Taken Unknown] sucralfate 1 gram tablet (Carafate) 1 g PO BID #60 tabs 07/22/21 [Rx Last Taken Unknown] pantoprazole 40 mg tablet,delayed release 40 mg PO DAILY #30 tabs 09/05/21 [Rx Last Taken Unknown] sucralfate 1 gram tablet 1 g PO BID #60 tabs 09/05/21 [Rx Last Taken Unknown] pantoprazole 40 mg tablet,delayed release (Protonix) 40 mg PO DAILY #30 tabs 01/14/22 [Rx Last Taken Unknown] sucralfate 1 gram tablet (Carafate) 1 g PO BID #60 tabs 01/14/22 [Rx Last Taken Unknown] Allergy/AdvReac Type Severity Reaction Status Date / Time No Known Allergies Allergy Verified 01/14/22 18:22 Social History household members: other Smoking Status: Light Smoker (<10/day) substance use type: does not use ROS ROS ED Constitutional Constitutional ED: Denies chills or fever(s) Eyes Eyes: Denies change in vision ENT ENT ED: Denies rhinorrhea or sore throat Cardiovascular Cardiovascular: Denies chest pain or palpitations Respiratory/Chest Respiratory/Chest: Denies cough or dyspnea Gastrointestinal Gastrointestinal: Denies abdominal pain, constipation, diarrhea, melena, nausea or vomiting Genitourinary Genitourinary ED: Denies dysuria or hematuria Musculoskeletal Musculoskeletal: Denies arthralgias or back pain Integumentary Denies abscess or Abrasions Neurologic Neurologic: Denies headache(s) or paresthesias Psychiatric Psychiatric: Denies anxiety or depression EXAM Physical Exam Const Vital Signs: 01/14/22 18:20 01/14/22 19:29 Temperature 98.1 F Temperature Source Temporal Pulse Rate 96 Respiratory Rate 16 Respiratory Effort Normal Blood Pressure 129/86 H Blood Pressure Mean 100 Pulse Ox 100 Oxygen Delivery Method Room Air Positive well nourished General Appearance ED: NAD; Negative for pallor HEENT Reports moist mucous membranes Negative for trauma Eyes PERRL and EOMs intact bilaterally General Eye ED: Negative for pale conjunctiva or scleral icterus Resp normal respiratory effort and clear to auscultation bilaterally GI normal to inspection, nondistended, normoactive bowel sounds Neuro oriented x3 and CN's II-XII intact bilaterally Sensorium / Orientation: alert Psych mental status grossly normal Skin no rashes or lesions noted and no wounds General Skin Exam: Negative for jaundice or pallor MDM MDM MDM Narrative Medical decision making narrative: Patient presenting for medication refill. He states he takes Protonix 40 mg daily and Carafate 1 g p.o. twice daily. He does not have any pain, nausea, vomiting. His physical exam is normal. His vital signs are stable he is afebrile. Patient's medications were refilled. He is given referral to Dr. Douglas because he does not have a GI doctor he seen. Return precautions discussed. Impression: 1. History of gastric ulcers 2. History of GERD 3. Medication Discharge Plan Triage Chief Complaint: Med Refill ED Provider: Aamir Mena Dx/Rx/DC Orders Prescriptions: New pantoprazole [Protonix] 40 mg tablet,delayed release (DR/EC) 40 mg PO DAILY Qty: 30 0RF sucralfate [Carafate] 1 gram tablet 1 g PO BID Qty: 60 0RF No Action penicillin V potassium 500 MG tablet 500 mg PO 4X/DAY Qty: 40 0RF pantoprazole 40 mg tablet,delayed release (DR/EC) 40 mg PO DAILY Qty: 30 0RF sucralfate [Carafate] 1 gram tablet 1 g PO BID Qty: 60 0RF pantoprazole 40 mg tablet,delayed release (DR/EC) 40 mg PO DAILY Qty: 30 2RF sucralfate 1 gram tablet 1 g PO BID Qty: 60 2RF Primary Care Provider: Jaiden Doctor,Out of Referrals: FriendMitchell DO [Med Staff - Active Staff] - 3-5 Days [facility] Doctor,Out of [Primary Care Provider] - Disposition Disposition: Home, Self Care
== END 2022-01-14 21:01 | disposition home or self-care (01) ==
PROVIDERS: Emergency Provider Student in an Organized Health Care Education/Training Program; Visit Provider Student in an Organized Health Care Education/Training Program
DX: Z76.0 Encounter for issue of repeat prescription (principal); F17.200 Nicotine dependence, unspecified, uncomplicated; K21.9 Gastro-esophageal reflux disease without esophagitis
CPT/HCPCS: 99282

== ENCOUNTER 2022-01-23 20:21 | Emergency (ER) | payer MEDICAID, SELFPAY ==
[2022-01-23 20:21] VITALS: BP 136/83; PULSE 79; RESP 15; TEMP 35.8; O2SAT 100; BMI 22.4
--- NOTE | 2022-01-23 20:31 | ED.VIS.DENTA ---
HPI History of Present Illness Chief Complaint: Dental Informant: patient Onset/Context/Timing Onset: Days (3) Context: Gradual Onset Timing: Continuous Quality: Throbbing Location: Left lower premolars Worsened by: Cold Relieved by: - (Elbow. Warm coffee) Associated Symptoms Assocated Symptom - Dental: jaw swelling and cold sensitivity; Negative for fever, face swelling or hot sensitivity Narrative Narrative: Patient presents with toothache that has been getting progressively worse over the past 3 days. Patient admits to some increased swelling in his left lower premolar area. Patient describes his pain as throbbing. Patient states it has been constant. Patient states it is worse with cold. Patient states he drank some coffee yesterday which helped briefly. Patient denies any hot sensitivity. Patient denies any facial swelling. Patient does not have a dentist. [facility] Medical History GERD (gastroesophageal reflux disease) Lupus Ulcer Home Medications sucralfate 1 gram tablet 1 g PO BID #60 tabs 09/05/21 [Rx Last Taken Unknown] pantoprazole 40 mg tablet,delayed release (Protonix) 40 mg PO DAILY #30 tabs 01/14/22 [Rx Last Taken Unknown] penicillin V potassium 500 mg tablet 500 mg PO 4X/DAY #40 tabs 01/23/22 [Rx Last Taken Unknown] Allergy/AdvReac Type Severity Reaction Status Date / Time No Known Allergies Allergy Verified 01/23/22 20:21 Social History household members: other Smoking Status: Light Smoker (<10/day) substance use type: does not use ROS ROS ED Constitutional Constitutional ED: Denies chills or fever(s) Eyes Eyes: Denies blurry vision or change in vision ENT ENT ED: Reports rhinorrhea; Denies sore throat Cardiovascular Cardiovascular: Denies chest pain or palpitations Respiratory/Chest Respiratory/Chest: Denies cough or dyspnea Gastrointestinal Gastrointestinal: Denies nausea or vomiting Genitourinary Genitourinary ED: Denies dysuria or hematuria Musculoskeletal Musculoskeletal: Denies back pain or neck pain Integumentary Denies abscess or rash Neurologic Neurologic: Reports headache(s); Denies weakness Allergic/Immunologic Allergic/Immunologic ED: Denies mouth swelling or urticaria EXAM Physical Exam Const Vital Signs: 01/23/22 20:21 Temperature 96.5 F L Temperature Source Temporal Pulse Rate 79 Respiratory Rate 15 Blood Pressure 136/83 H Blood Pressure Mean 100 Pulse Ox 100 Oxygen Delivery Method Room Air Positive well nourished and well developed General Appearance ED: well developed and NAD HEENT HEENT Narrative: There is tenderness and edema of the gingiva over the left lower premolar areas. There is no active discharge or drainage. There is no fluctuance. There is no sublingual edema or anterior neck swelling. There is no evidence of Anoop's angina. Mouth ED: Yes oral and palatal mucosa normal and Yes lips normal Mouth: oral and palatal mucosa normal and lips normal Teeth and Gingiva: caries and gingiva abnormal Positive for gingival edema Throat: posterior oropharynx normal Eyes PERRL and EOMs intact bilaterally Neck supple and no JVD General: Negative for anterior neck swelling, tenderness or submandibular swelling Neuro oriented x3, CN's II-XII intact bilaterally, moves all extremities, no focal motor deficits and no sensory deficits noted Sensorium / Orientation: alert Motor Exam: strength 5/5 throughout Psych mental status grossly normal MDM MDM MDM Narrative Medical decision making narrative: Patient was given a dose of Pen-Vee K here. Patient was given a prescription for Pen-Vee K. Patient was instructed to take Tylenol as needed for pain. Patient was given a dental referral list. Patient was instructed to follow-up with a dentist in 5 to 7 days. Patient understood and was agreeable with the plan. All questions were answered. Discharge Plan Triage Chief Complaint: Dental ED Provider: Jere Michel Dx/Rx/DC Orders Clinical Impression: Infected dental caries Instructions: ED Dental Abscess Prescriptions: New penicillin V potassium 500 MG tablet 500 mg PO 4X/DAY Qty: 40 0RF No Action sucralfate 1 gram tablet 1 g PO BID Qty: 60 2RF pantoprazole [Protonix] 40 mg tablet,delayed release (DR/EC) 40 mg PO DAILY Qty: 30 0RF Primary Care Provider: Care Physician,No Primary Referrals: Kaylie Manjarrez [Non-Staff] - 5-7 Days [facility] Doctor,Out of [Non-Staff] - Dentist,Your [STAFF PHYSICIAN] - 5-7 Days Disposition Disposition: Home, Self Care
[2022-01-23] MEDS: Penicillin Vk 250 MG Tablet 500 MG PO (20:58)
[2022-01-23] MEDS: Acetaminophen 500 MG Tablet 1000 MG PO (20:58)
== END 2022-01-23 21:00 | disposition home or self-care (01) ==
PROVIDERS: Emergency Provider Emergency Medicine; Visit Provider Emergency Medicine
DX: K02.9 Dental caries, unspecified (principal); F17.200 Nicotine dependence, unspecified, uncomplicated
CPT/HCPCS: 99283

== ENCOUNTER 2022-03-07 21:10 | Emergency (ER) | payer MEDICAID, SELFPAY ==
[2022-03-07 21:11] VITALS: BP 135/89; PULSE 68; RESP 18; TEMP 36.6; O2SAT 100; BMI 22.6
--- NOTE | 2022-03-07 21:34 | EX.ED.DYSGE1 ---
HPI History of Present Illness Chief Complaint: GI Bleed Detail of Chief Complaint: Prescription has no refills and history of peptic ulcer disease Informant: patient Onset/Context/Timing Onset: - (Patient diagnosed with bleeding peptic ulcer 2015. He states he has been out of his sucralfate and Protonix for proxy 1 month. He is requesting prescription refill) Current Severity: Out of medication Maximum Severity: Out of medication Worsened by: Noncompliance with medication Relieved by: Nothing Associated Symptoms Associated Symptoms: Increased abdominal gurgling Narrative Narrative: Patient is a 47-year-old male who does smoke and drink. He states he is decreased from the past. He denies black or maroon-colored stool. He states his stool is dark green. He denies hematemesis. He denies nausea or vomiting. He denies bruising easily. He denies bleeding of his gums. He denies blood in his urine. Prior similar symptoms: Yes Recent Illness/Hospitalization: No PFSH PFSH Medical History GERD (gastroesophageal reflux disease) Lupus Ulcer Home Medications sucralfate 1 gram tablet 1 g PO BID #60 tabs 09/05/21 [Rx Last Taken Unknown] pantoprazole 40 mg tablet,delayed release (Protonix) 40 mg PO DAILY #30 tabs 01/14/22 [Rx Last Taken Unknown] penicillin V potassium 500 mg tablet 500 mg PO 4X/DAY #40 tabs 01/23/22 [Rx Last Taken Unknown] pantoprazole 40 mg tablet,delayed release (Protonix) 40 mg PO DAILY #30 tabs 03/07/22 [Rx Last Taken Unknown] sucralfate 1 gram tablet 1 g PO BID #60 tabs 03/07/22 [Rx Last Taken Unknown] Allergy/AdvReac Type Severity Reaction Status Date / Time No Known Allergies Allergy Verified 01/23/22 20:21 Social History household members: other Smoking Status: Light Smoker (<10/day) substance use type: does not use ROS ROS ED Constitutional Constitutional ED: Denies chills, fever(s), subjective, sweats or weight loss Eyes Eyes: Denies blurry vision, change in vision or diplopia ENT ENT ED: Denies ear pain, rhinorrhea or sore throat Cardiovascular Cardiovascular: Denies chest pain or palpitations Respiratory/Chest Respiratory/Chest: Denies cough, dyspnea or dyspnea on exertion Gastrointestinal Gastrointestinal: Denies abdominal pain, diarrhea, melena, nausea or vomiting Genitourinary Genitourinary ED: Denies dysuria or hematuria Musculoskeletal Musculoskeletal: Denies arthralgias or myalgias Hematologic/Lymphatic Hematologic/Lymphatic: Reports systems reviewed and no addt'l complaints, except as documented; Denies anemia, easy bleeding or easy bruising EXAM Physical Exam Const Vital Signs: 03/07/22 21:11 03/07/22 21:11 Temperature 97.8 F 97.8 F Temperature Source Temporal Temporal Pulse Rate 68 68 Respiratory Rate 18 18 Blood Pressure 135/89 H 135/89 H Blood Pressure Mean 104 104 Pulse Ox 100 100 Oxygen Delivery Method Room Air Room Air Positive well nourished and well developed General Appearance ED: well developed and NAD; Negative for cyanotic, diaphoretic or pallor HEENT Reports moist mucous membranes HEENT Narrative: Head is atraumatic normocephalic. Ears normal. Nares patent. Uvula midline. Eyes PERRL and EOMs intact bilaterally General Eye ED: Negative for pale conjunctiva or scleral icterus Neck no lymphadenopathy, supple and no JVD Chest Wall inspection of chest normal and palpation of chest normal Resp normal respiratory effort and clear to auscultation bilaterally Cardio regular rate, regular rhythm, S1 normal heart sound, S2 normal heart sound and no murmurs GI non-tender, non-distended and no masses; Negative for normal to inspection, nondistended, normoactive bowel sounds or hepatosplenomegaly Inspection: Negative for abdominal distention Auscultation: hyperactive bowel sounds Palpation: soft; Negative for tender Back/Spine no CVA tenderness Extremity normal to inspection Neuro oriented x3, CN's II-XII intact bilaterally and no sensory deficits noted Sensorium / Orientation: alert Psych mental status grossly normal Skin no rashes or lesions noted, no wounds and skin turgor normal General Skin Exam: Negative for jaundice or pallor MDM MDM MDM Narrative Medical decision making narrative: Patient has history of bleeding peptic ulcer. Patient states he needs a refill for his sucralfate and Protonix. Will write prescriptions for patient. Discharge Plan Triage Chief Complaint: GI Bleed ED Provider: Pirest,Dorian Dx/Rx/DC Orders Clinical Impression: Encounter for medication refill, History of peptic ulcer disease Instructions: ED PUD Prescriptions: New pantoprazole [Protonix] 40 mg tablet,delayed release (DR/EC) 40 mg PO DAILY Qty: 30 1RF sucralfate 1 gram tablet 1 g PO BID Qty: 60 1RF No Action sucralfate 1 gram tablet 1 g PO BID Qty: 60 2RF pantoprazole [Protonix] 40 mg tablet,delayed release (DR/EC) 40 mg PO DAILY Qty: 30 0RF penicillin V potassium 500 MG tablet 500 mg PO 4X/DAY Qty: 40 0RF Primary Care Provider: Care Physician,No Primary Referrals: Care Physician,No Primary [Primary Care Provider] - Doctor,Your [Non-Staff] - Disposition Disposition: Home, Self Care
[2022-03-07] MEDS: Pantoprazole Sodium 40 MG Tablet PO (21:53)
[2022-03-07 21:56] VITALS: BP 129/83; PULSE 68; RESP 15; O2SAT 99
== END 2022-03-07 21:57 | disposition home or self-care (01) ==
LOC: ED 21:44
PROVIDERS: Emergency Provider Emergency Medicine; Visit Provider Emergency Medicine
DX: Z76.0 Encounter for issue of repeat prescription (principal); F17.200 Nicotine dependence, unspecified, uncomplicated
CPT/HCPCS: 99283

== ENCOUNTER 2023-02-09 13:21 | Emergency (ER) | payer MEDICAID, SELFPAY ==
[2023-02-09] VITALS (9 sets, daily range): BP systolic 137; BP diastolic 87; PULSE 62–94; RESP 16–18; TEMP 36.1; O2SAT 96–99; BMI 22.8
--- NOTE | 2023-02-09 13:49 | EX.ED.DYSGE1 ---
HPI History of Present Illness Chief Complaint: Suicidal Narrative Narrative: Presents with suicidal thoughts. Patient states he has lupus but is not on any meds for that. He does have depression. He states he is on something for it but he does not remember the name but he has not had it for at least some days if not longer. He states he is homeless and he left it at a place that he stayed for a couple days. He is also on meds for GERD. He states he feels tired all the time. He has been homeless for a year and a half. He states he was sleeping outside last night in the snow. He states he was just watching this no come down and feeling hopeless. He states he is trying to work but he cannot get enough hours to get a good paycheck that allows him to get a place to stay. He states he is just to the point he does not care anymore. He he does not have a specific plan to hurt himself. But he thought of just walking into the [place] freezing and not coming out. He has not attempted overdose. He does not really drink alcohol. He will occasionally vape. Not a big user of street drugs. [facility] Medical History (Updated 02/09/23 @ 14:02 by Lily Booth) Arthritis GERD (gastroesophageal reflux disease) Lupus Ulcer Home Medications pantoprazole 40 mg tablet,delayed release (Protonix) 40 mg PO DAILY #30 tabs 01/14/22 [Rx Last Taken Unknown] pantoprazole 40 mg tablet,delayed release (Protonix) 40 mg PO DAILY #30 tabs 03/07/22 [Rx Last Taken Unknown] Allergy/AdvReac Type Severity Reaction Status Date / Time No Known Allergies Allergy Verified 02/09/23 13:25 Family History (Updated 02/09/23 @ 14:02 by Lily Booth) Other Hypertension Surgical History no surgical history Social History (Updated 02/09/23 @ 14:02 by Lily Booth) household members: other housing: homeless Smoking Status: Light Smoker (<10/day) substance use type: does not use ROS ROS ED Constitutional Constitutional ED: Denies chills or fever(s) Eyes Eyes: Denies change in vision ENT ENT ED: Denies rhinorrhea or sore throat Cardiovascular Cardiovascular: Denies chest pain or palpitations Respiratory/Chest Respiratory/Chest: Denies cough or dyspnea Gastrointestinal Gastrointestinal: Reports other Details: Occasionally gets epigastric pain but this is typical of his GERD. He is still eating and drinking. Not vomiting. He is hungry now. ; Denies nausea or vomiting Musculoskeletal Musculoskeletal: Denies myalgias Integumentary Denies rash Neurologic Neurologic: Denies headache(s) or paresthesias Psychiatric Psychiatric: Reports depression, suicidal ideation and suicidal thoughts Endocrine Endocrinology: Denies polydipsia or polyuria Hematologic/Lymphatic Hematologic/Lymphatic: Denies easy bleeding or easy bruising Allergic/Immunologic Allergic/Immunologic ED: Denies urticaria EXAM Physical Exam Narrative Exam Narrative: General: Patient is awake alert sitting quietly in bed. He is cooperative. HEENT shows no marked abnormalities. He has small abrasion on his right cheek but no active infection. Neck is supple. Lungs are clear bilaterally. No coughing. Saturations are normal at 97% on room air showing no hypoxia. Heart is regular. I hear no murmur or muffled tones. Pulses distally are intact. Abdomen is soft there is no objective tenderness. No CVA tenderness Extremities show no acute trauma. Neurologically he is awake alert appropriate with normal gait balance and coordination Psychiatry: Patient does have a flat affect. Quiet voice. Makes moderate eye contact. Does admit to thoughts of just not caring anymore. Does not have an active plan but does have passive suicidal plan. Const Vital Signs: 02/09/23 13:22 02/09/23 14:03 02/09/23 14:08 Temperature 97 F L Temperature Source Temporal Pulse Rate 79 62 Respiratory Rate 18 16 Respiratory Pattern Normal Blood Pressure 137/87 H Blood Pressure Mean 103 Pulse Ox 97 99 Oxygen Delivery Method Room Air Room Air 02/09/23 15:00 02/09/23 16:00 02/09/23 17:32 Temperature Temperature Source Pulse Rate 70 70 72 Respiratory Rate 16 16 16 Respiratory Pattern Blood Pressure Blood Pressure Mean Pulse Ox 98 96 98 Oxygen Delivery Method Room Air Room Air 02/09/23 18:00 02/09/23 19:00 02/09/23 21:00 Temperature Temperature Source Pulse Rate 72 84 92 Respiratory Rate 16 16 16 Respiratory Pattern Blood Pressure Blood Pressure Mean Pulse Ox 96 99 98 Oxygen Delivery Method Room Air Room Air 02/09/23 22:00 02/10/23 00:00 02/10/23 01:02 Temperature 97.6 F L Temperature Source Pulse Rate 94 88 87 Respiratory Rate 16 16 18 Respiratory Pattern Blood Pressure 136/82 H Blood Pressure Mean 100 Pulse Ox 99 99 99 Oxygen Delivery Method Room Air Room Air 02/10/23 01:04 02/10/23 05:12 02/10/23 06:12 Temperature Temperature Source Pulse Rate 87 Respiratory Rate 18 18 18 Respiratory Pattern Blood Pressure 136/82 H Blood Pressure Mean 100 Pulse Ox Oxygen Delivery Method MDM MDM MDM Narrative Medical decision making narrative: Patient will have medical evaluation. He does not have a history of kidney disease with his lupus but we will check this. We will have counselor see him. This patient has history of depression and is off meds. He also has some passive but not active suicidal thoughts. But his homeless situation and limited funds do affect his care, access to medicines and access to ongoing therapy. Patient CBC shows no marked abnormalities. Patient's electrolytes are normal. Renal function is normal. Glucose is normal. Patient's serum alcohol level is negative. Patient's COVID screen is negative. Patient's urine toxicology is pending. But there is nothing on this that would affect safety for medical clearance. Therefore the patient is medically cleared for psychiatric evaluation by crisis and admission/transfer if needed. 07:30 Patient was evidently here overnight. He had been evaluated by crisis and was appropriate for placement. I came back in in the morning. No issues reported to me. Patient was transferred out without event. Lab Data Attestation: I reviewed the patient's lab results. Labs: Laboratory Results - last 24 hr 02/09/23 02/09/23 13:55 14:12 WBC 6.6 RBC 4.94 Hgb 15.1 Hct 46.1 MCV 93.3 MCH 30.6 MCHC 32.8 RDW Std Deviation 44.3 H RDW Coeff of Tristen 13.0 Plt Count 210 MPV 8.7 Immature Gran % (Auto) 0.200 Neut % (Auto) 67.5 Lymph % (Auto) 24.4 [place] % (Auto) 6.3 Eos % (Auto) 1.1 Baso % (Auto) 0.5 Absolute Neuts (auto) 4.4 Absolute Lymphs (auto) 1.60 Nucleated RBC % 0 Sodium 140 Potassium 3.7 Chloride 103 Carbon Dioxide 30.0 Anion Gap 7 BUN 11 Creatinine 0.69 L Estim Creat Clear Calc 153.72 Est GFR (MDRD) Af Amer 157 Est GFR (MDRD) Non-Af 130 BUN/Creatinine Ratio 15.9 Glucose 104 Calcium 9.2 Urine Opiates Screen NEGATIVE Urine Methadone Screen NEGATIVE Ur Barbiturates Screen NEGATIVE Ur Phencyclidine Scrn NEGATIVE Ur Amphetamines Screen NEGATIVE MDMA (Ecstasy) Screen NEGATIVE U Benzodiazepines Scrn NEGATIVE Urine Cocaine Screen NEGATIVE U Cannabinoids Screen POSITIVE H Ur Drug Screen Comment Ethyl Alcohol < 3.0 Discharge Plan Triage Chief Complaint: Suicidal Other Complaint: General Illness ED Provider: Ubaldo Steiner Dx/Rx/DC Orders Clinical Impression: Suicidal thoughts, Homeless, History of lupus Prescriptions: No Action pantoprazole [Protonix] 40 mg tablet,delayed release (DR/EC) 40 mg PO DAILY Qty: 30 0RF pantoprazole [Protonix] 40 mg tablet,delayed release (DR/EC) 40 mg PO DAILY Qty: 30 1RF Primary Care Provider: Care Physician,No Primary Referrals: Care Physician,No Primary [Primary Care Provider] - Disposition Disposition: Psychiatric Hospital or Unit Discharge Location: [facility] Discharge Date/Time: 02/10/23 07:38
[2023-02-09 14:05] LABS: Absolute Neutrophil Count 4.4 X10^3/uL (2.0-7.7); Basophil# 0.03 X10^3/uL; Basophil% 0.5 % (0-1); Eosinophil# 0.07 X10^3/uL; Eosinophils% 1.1 % (0-5); Hematocrit 46.1 % (40-54); Hemoglobin 15.1 g/dL (13.0-16.5); Lymphocyte % 24.4 % (19-41); Mean Corp Hgb Conc 32.8 g/dL (32-36); Mean Corpuscular Hgb 30.6 pg (27.0-32.0); Mean Corpuscular Volume 93.3 fL (80-94); Mean Platelet Vol. 8.7 fl (6.2-12.0); Monocyte# 0.41 X10^3/uL; Monocyte% 6.3 % (0-10); NRBC Flagged by Analyzer 0 % (0-5); Neutrophil # 4.43 X10^3/uL (2.7-7.7); Neutrophil % 67.5 % (47-70); Platelet Count 210 K/mm3 (150-450); RBC Distribution Width SD 44.3 fl (35.1-43.9); Red Blood Count 4.94 M/mm3 (4.6-6.2); White Blood Count 6.6 K/mm3 (4.4-11.0)
[2023-02-09 14:18] LABS: Anion Gap 7 (5-15); BUN 11 mg/dL (7-18); BUN/Creat Ratio 15.9 RATIO (10-20); Calcium,Total 9.2 mg/dL (8.5-10.1); Chloride 103 mmol/L (98-107); Creatinine, Serum 0.69 mg/dL (0.70-1.30); EST Glomerular Filtration Rate 130 mL/min (>60); Est Glom Filt Rate - Afr Amer 157 mL/min (>60); Estimated Creatinine Clearance 153.72 ml/min; Glucose 104 mg/dL (74-106); Potassium 3.7 mmol/L (3.5-5.1); Sodium Level 140 mmol/L (136-145)
[2023-02-09 14:29] LABS: Alcohol, Blood (Medical)-Serum < 3.0 mg/dL
[2023-02-09 14:33] LABS: Amphetamine Urine VISTA NEGATIVE (<1000 ng/mL); Barbiturate Urine VISTA NEGATIVE (< 200 ng/mL); Benzodiazepine Urine VISTA NEGATIVE (< 200 ng/mL); Cocaine Urine VISTA NEGATIVE (< 300 ng/mL); Ecstacy Urine VISTA NEGATIVE (< 500 ng/mL); Methadone Urine VISTA NEGATIVE (< 300 ng/mL); PCP Urine VISTA NEGATIVE (< 25 ng/mL); THC Urine VISTA POSITIVE (< 50 ng/mL); Vista UDS pH Range 6
--- NOTE | 2023-02-09 14:37 | NURSING ---
CALLED [facility] ABOUT PATIENT
--- NOTE | 2023-02-09 14:46 | NURSING ---
FAXED CHART TO [facility]
--- NOTE | 2023-02-09 15:51 | NURSING ---
[facility] HERE FOR PATIENT
[2023-02-10] VITALS: PULSE 88; RESP 16; O2SAT 99
[2023-02-10 01:02] VITALS: BP 136/82; PULSE 87; RESP 18; TEMP 36.4; O2SAT 99
[2023-02-10 01:04] VITALS: BP 136/82; PULSE 87; RESP 18
--- NOTE | 2023-02-10 04:00 | EKG12_ITS ---
Test Reason : MHC Blood Pressure : / mmHG Vent. Rate : 087 BPM Atrial Rate : 087 BPM P-R Int : 160 ms QRS Dur : 082 ms QT Int : 384 ms P-R-T Axes : 067 072 078 degrees QTc Int : 462 ms Normal sinus rhythm Normal ECG Confirmed by CELE DE LEÓN, RACHEL ([id number]), assignment editor ROMMEL DE PAZ ([id number]) on 02/21/2023 8:03:53 AM Referred By: SAMI Confirmed By:SWETHA OAKLEY MD
[2023-02-10 05:12] VITALS: RESP 18
[2023-02-10 06:12] VITALS: RESP 18
== END 2023-02-10 07:38 ==
PROVIDERS: Emergency Provider Emergency Medicine; Visit Provider Emergency Medicine
DX: R45.851 Suicidal ideations (principal); F17.200 Nicotine dependence, unspecified, uncomplicated; Z59.02 Unsheltered homelessness; K21.9 Gastro-esophageal reflux disease without esophagitis; Z79.899 Other long term (current) drug therapy; L93.2 Other local lupus erythematosus
CPT/HCPCS: 80048; 80307; 82077; 85025; 87811; 93005; 99285

== ENCOUNTER 2023-02-16 09:10 | Emergency (ER) | payer MEDICAID, SELFPAY ==
[2023-02-16 09:11] VITALS: BP 131/79; PULSE 74; RESP 18; TEMP 36.3; O2SAT 99; BMI 22.9
--- NOTE | 2023-02-16 09:34 | EDS_ITS ---
HPI History of Present Illness Chief Complaint: General Illness Informant: patient Narrative Narrative: 48-year-old male presenting to the emergency room with memory issues. Patient states that since being diagnosed with lupus several years ago he has had diffi culty remembering at times. He states he currently sees nobody for it. He was recently admitted to psychiatric facility for major depressive disorder and suicidal thoughts. He states he was released yesterday was supposed to go to [facility]. He did go to [facility] because he states he knows nobody there. He has follow-up appointment there tomorrow. He did not take his medications up yesterday. He states he smoked cannabis and slept outside last night near where his mother lives. He states he cannot live with his mother because his stepfather has masculinity issues. He states yesterday he went to go to the store but took about 5 minutes to remember what he was doing. He has been in [place] he reports for 2 years. During which time he states he has not established care for his medical issues. Patient is unsure of what he can do because every time he goes to the [facility] they are full. [facility] Medical History Arthritis GERD (gastroesophageal reflux disease) Lupus Ulcer Home Medications pantoprazole 40 mg tablet,delayed release (Protonix) 40 mg PO DAILY #30 tabs 01/14/22 [Rx Last Taken Unknown] pantoprazole 40 mg tablet,delayed release (Protonix) 40 mg PO DAILY #30 tabs 03/07/22 [Rx Last Taken Unknown] Allergy/AdvReac Type Severity Reaction Status Date / Time No Known Allergies Allergy Verified 02/16/23 09:11 Family History Other Hypertension Social History household members: other housing: homeless Smoking Status: Light Smoker (<10/day) substance use type: does not use ROS ROS ED Constitutional Constitutional ED: Reports chills; Denies fever(s) or weight loss Eyes Eyes: Denies change in vision or diplopia ENT ENT ED: Denies ear pain, rhinorrhea or sore throat Cardiovascular Cardiovascular: Denies chest pain, orthopnea, palpitations or racing heartbeat Respiratory/Chest Respiratory/Chest: Denies cough, dyspnea or orthopnea Gastrointestinal Gastrointestinal: Denies abdominal pain, diarrhea, nausea or vomiting Genitourinary Genitourinary ED: Denies dysuria, hematuria or urinary frequency Musculoskeletal Musculoskeletal: Denies arthralgias or myalgias Integumentary Denies abscess or rash Neurologic Neurologic: Reports other Details: Memory issues ; Denies headache(s) or weakness Psychiatric Psychiatric: Denies anxiety, depression, suicidal ideation or suicidal thoughts Endocrine Endocrinology: Denies polydipsia, polyphagia or polyuria Allergic/Immunologic Allergic/Immunologic ED: Denies mouth swelling, tongue swelling or urticaria EXAM Physical Exam Const Vital Signs: 02/16/23 09:11 Temperature 97.4 F L Temperature Source Temporal Pulse Rate 74 Respiratory Rate 18 Blood Pressure 131/79 H Blood Pressure Mean 96 Pulse Ox 99 Oxygen Delivery Method Room Air Positive well nourished and well developed General Appearance ED: well developed HEENT Reports normocephalic, head/scalp atraumatic and moist mucous membranes Eyes PERRL and EOMs intact bilaterally Neck no lymphadenopathy, supple and no JVD Resp normal respiratory effort and clear to auscultation bilaterally Cardio regular rate, regular rhythm and no murmurs GI normal to inspection, nondistended, normoactive bowel sounds and non-tender Palpation: soft Back/Spine no CVA tenderness and normal ROM Extremity normal to inspection General Extremety ED: Negative for edema General Extremity: Negative for edema Neuro oriented x3 and CN's II-XII intact bilaterally Neuro Narrative: Patient is 3/3 on the 3 on screener. Both short-term and long-term memory appear intact at least on my direct questions regarding the past and his most recent hospitalization. Sensorium / Orientation: alert; Negative for orientation impaired Motor Exam: strength 5/5 throughout Psych mental status grossly normal Psych Narrative: Patient denies any suicidal or homicidal thoughts during my examination Mood & Affect: Negative for depressed or tearful Skin no rashes or lesions noted and no wounds MDM MDM MDM Narrative Medical decision making narrative: His forgetfulness/memory issues appear to be chronic in nature. Most likely contributing to this would be chronic cannabis use. I would also postulate that being started on psychiatric medicines and then abruptly not taking them can also contribute. I do not see any emergent cause of his concerns on examination/history. Unfortunately I cannot fix his homelessness. I can provide him community resources such as katt starts in clinic in the crisis/counseling center. I advised him that it is early in the day that he should visit with the [facility] [employer] to talk about resources. Social work is not available at this time. 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 No recent falls or head injuries. Discharge Plan Triage Chief Complaint: General Illness ED Provider: Inderjit Aguilar Dx/Rx/DC Orders Clinical Impression: Forgetfulness, Homeless, History of lupus Prescriptions: No Action pantoprazole [Protonix] 40 mg tablet,delayed release (DR/EC) 40 mg PO DAILY Qty: 30 0RF pantoprazole [Protonix] 40 mg tablet,delayed release (DR/EC) 40 mg PO DAILY Qty: 30 1RF Primary Care Provider: Care Physician,No Primary Referrals: Counseling,Center [Group of Physicians] - As soon as possible Kaylie Manjarrez [Non-Staff] - As soon as possible Care Physician,No Primary [Primary Care Provider] - Disposition Disposition: Home, Self Care
[2023-02-16 10:27] VITALS: BP 128/74; PULSE 72; RESP 16; TEMP 36.4; O2SAT 98
== END 2023-02-16 10:28 | disposition home or self-care (01) ==
LOC: ED 09:52
PROVIDERS: Emergency Provider Emergency Medicine; Visit Provider Emergency Medicine
DX: R41.89 Other symptoms and signs involving cognitive functions and awareness (principal); M32.9 Systemic lupus erythematosus, unspecified; Z59.00 Homelessness unspecified; F17.200 Nicotine dependence, unspecified, uncomplicated; K21.9 Gastro-esophageal reflux disease without esophagitis; Z79.899 Other long term (current) drug therapy
CPT/HCPCS: 99282

== ENCOUNTER 2023-04-12 23:44 | Emergency (ER) | payer MEDICAID, SELFPAY ==
[2023-04-12 23:46] VITALS: BP 136/82; PULSE 89; RESP 15; TEMP 36.1; O2SAT 100; BMI 24.5
--- NOTE | 2023-04-13 00:03 | CT_ITS ---
INDICATION: confusion EXAMINATION: CT BRAIN - CT Head or Brain W/O Contrast Injection TECHNIQUE: Multiple axial images were obtained of the head without intravenous contrast. A radiation dose optimization technique was used for this scan. IV Contrast dosage and agent: None. RADIATION DOSAGE (If Supplied By Facility): CTDIvol = ( 44.99 ) mGy, DLP = ( 829.85 ) mGycm COMPARISON: No relevant prior comparison study available FINDINGS: BRAIN PARENCHYMA: No intra- or extra-axial hemorrhage. No evidence of acute infarct. No intracranial mass or mass effect. There is preservation of the george/white matter interface. Posterior fossa structures are unremarkable. CSF SPACES: Appropriate for age. No hydrocephalus. Basal cisterns are patent. CALVARIUM, SKULL BASE, PARANASAL SINUSES AND MASTOID AIR CELLS: Clear. No discrete lytic or blastic abnormalities. ORBITS: Both globes, extraocular muscles, optic nerves and retrobulbar fat appear unremarkable. ASPECTS Score for Acute Strokes: 10 CT/Brain/Head without Contrast IMPRESSION: Negative Brain CT without contrast. Electronically Signed: Raza Mathis MD at 1:04 EST ,
--- NOTE | 2023-04-13 00:04 | EX.ED.DYSGE1 ---
HPI History of Present Illness Chief Complaint: Alt LOC Informant: patient Onset/Context/Timing Onset: Days Context: Gradual Onset Narrative Narrative: Patient presents stating that he feels dizzy, confused, and forgetful for the past week. He states he was diagnosed with lupus 2 years ago and feels that it has been a steady downhill decline since that time. Patient states he ended up in the emergency room tonight because he was staying in the middle the [place] and cannot remember where he was supposed to go. A friend saw him and stopped to check on him. He denies any recent fall or head injury. He denies diet change. He is taking pantoprazole and Carafate as needed for his ulcer. In review of records, patient was seen here for similar in early February. At that time he had just been released from a psychiatric facility. He was given referral information to establish care at the [facility] and to reach out to the [facility] for resources. After initially denying that he had followed up, he now tells me he has followed up with both the [facility] and the [facility]. [facility] Medical History Arthritis GERD (gastroesophageal reflux disease) Lupus Ulcer Home Medications pantoprazole 40 mg tablet,delayed release (Protonix) 40 mg PO DAILY #30 tabs 01/14/22 [Rx Last Taken Unknown] Allergy/AdvReac Type Severity Reaction Status Date / Time No Known Allergies Allergy Verified 04/12/23 23:51 Family History Other Hypertension Social History household members: other housing: homeless Smoking Status: Light Smoker (<10/day) substance use type: does not use ROS ROS ED Constitutional Constitutional ED: Denies chills or fever(s) Eyes Eyes: Denies change in vision or discharge from eye(s) ENT ENT ED: Denies discharge from eye(s), rhinorrhea or sore throat Cardiovascular Cardiovascular: Denies chest pain or palpitations Respiratory/Chest Respiratory/Chest: Denies cough or dyspnea Gastrointestinal Gastrointestinal: Denies abdominal pain, nausea or vomiting Genitourinary Genitourinary ED: Denies difficulty urinating or dysuria Musculoskeletal Musculoskeletal: Denies back pain or extremity pain Integumentary Denies Abrasions or rash Neurologic Neurologic: Reports weakness; Denies headache(s) Psychiatric Psychiatric: Denies anxiety or depression Allergic/Immunologic Allergic/Immunologic ED: Denies lip swelling or urticaria EXAM Physical Exam Const Vital Signs: 04/12/23 23:46 Temperature 97.0 F L Temperature Source Temporal Pulse Rate 89 Respiratory Rate 15 Blood Pressure 136/82 H Blood Pressure Mean 100 Pulse Ox 100 Oxygen Delivery Method Room Air Positive well nourished and well developed General Appearance ED: well developed HEENT Reports moist mucous membranes Eyes EOMs intact bilaterally Chest Wall inspection of chest normal and palpation of chest normal Resp normal respiratory effort and clear to auscultation bilaterally Cardio regular rate and regular rhythm GI non-tender Palpation: soft Extremity normal to inspection Neuro oriented x3 and no sensory deficits noted Motor Exam: strength 5/5 throughout Psych mental status grossly normal Skin no rashes or lesions noted MDM MDM MDM Narrative Medical decision making narrative: IV line will be established. Labwork obtained to evaluate for leukocytosis, anemia, and electrolyte derangement. Urinalysis obtained to evaluate for infection/hematuria. Urine tox screen will be obtained. CT scan of the head ordered given his reported altered mental status. Lab Data Attestation: I reviewed the patient's lab results. Labs: Laboratory Results - last 24 hr 04/13/23 04/13/23 00:15 00:59 WBC 5.4 RBC 4.62 Hgb 13.7 Hct 42.3 MCV 91.6 MCH 29.7 MCHC 32.4 RDW Std Deviation 41.9 RDW Coeff of Tristen 12.5 Plt Count 226 MPV 8.8 Immature Gran % (Auto) 0.400 Neut % (Auto) 50.6 Lymph % (Auto) 36.2 [place] % (Auto) 7.5 Eos % (Auto) 4.6 Baso % (Auto) 0.7 Absolute Neuts (auto) 2.8 Absolute Lymphs (auto) 1.97 Nucleated RBC % 0 Sodium 139 Potassium 3.7 Chloride 106 Carbon Dioxide 32.0 Anion Gap 1 L BUN 14 Creatinine 0.87 Estim Creat Clear Calc 124.11 Est GFR (MDRD) Af Amer 121 Est GFR (MDRD) Non-Af 100 BUN/Creatinine Ratio 16.1 Glucose 81 Calcium 8.8 Total Bilirubin 0.20 Direct Bilirubin 0.10 AST 18 ALT 20 Alkaline Phosphatase 81 Total Protein 7.3 Albumin 3.6 Globulin 3.7 Urine Color Yellow Urine Clarity Clear Urine pH 5.0 Ur Specific [place] 1.025 Urine Protein Negative Urine Glucose (UA) Normal Urine Ketones Negative Urine Occult Blood 10 H Urine Nitrite Negative Urine Bilirubin Negative Urine Urobilinogen Normal Ur Leukocyte Esterase 25 H Urine RBC 0 SEEN Urine WBC 0-5 SEEN Ur Squamous Epith Cells 0 SEEN Urine Bacteria 0 SEEN Urine Mucus 0 SEEN Urine Opiates Screen NEGATIVE Urine Methadone Screen NEGATIVE Ur Barbiturates Screen NEGATIVE Ur Phencyclidine Scrn NEGATIVE Ur Amphetamines Screen POSITIVE H MDMA (Ecstasy) Screen NEGATIVE U Benzodiazepines Scrn NEGATIVE Urine Cocaine Screen NEGATIVE U Cannabinoids Screen POSITIVE H Ur Drug Screen Comment Ethyl Alcohol 46.0 Radiography Diagnostic Testing: Clinical Impression(s) from Imaging Studies Brain CT 04/13/23 00:03 IMPRESSION: Negative Brain CT without contrast. Electronically Signed: Raza Mathis MD at 1:04 EST Reading Location ID and State: [facility] / MD Tel , Service support , Treatment and Re-Evaluation :: CBC and chemistry studies unremarkable. LFTs are normal. Urinalysis reveals no infection. Urine tox screen is positive for amphetamines and cannabinoids. EtOH is 46. CT scan of the head is unremarkable. Test results discussed with the patient. I will refer him to rheumatology as well as back to [facility] for follow-up. Return instructions given. Discharge Plan Triage Chief Complaint: Alt LOC ED Provider: Lamar Ball Dx/Rx/DC Orders Clinical Impression: Confusion Instructions: ED Confusion Prescriptions: No Action pantoprazole [Protonix] 40 mg tablet,delayed release (DR/EC) 40 mg PO DAILY Qty: 30 0RF Primary Care Provider: Care Physician,No Primary Referrals: Tatum Tovar MD [Med Staff - Wildlife Conservation Officer] - As Needed [facility] [Non-Staff] - 1-2 Weeks Care Physician,No Primary [Primary Care Provider] - Disposition Disposition: Home, Self Care
--- OUTSIDE RECORDS SUMMARY | 2023-04-13 00:18 | XMS RPT_ITS | CCD ---
Author Name Unknown Address [address] [place] [address] Organization [facility] Care Team Providers Care Messaging Architect Name Role Phone Yessi Husain Unavailable [phone] LAUREANO ALEX Unavailable Unavail able YESSI HUSAIN Unavailable Unavaila ble KUMPF, GEORGE KATIUSKA Unavailable Unavailable LAUREANO ALEX Unavailable Unavail able YESSI HUSAIN Unavailable Unavaila ble KUMPF, GEORGE HARP Unavailable Unavailable MOROCCO ZORAN Unavailable Unavailable KUMPF, GEORGE KATIUSKA Unavailable Unavailable YESSI HUSAIN Unavailable Unavaila ble ELENITAOCCBrigido ZORAN Unavailable Unavailable YESSI HUSAIN Unavailable Unavaila HOMERO Campos Unavailable Unavailable Unavailable Primary Care Provider YESSI Allen Primary Care Unavaila PER Miller Attending Unavailab jeimy MEKEVELYNAPER Admitting Unavailab ZORAN Esqueda Attending Unavailable YESSI HUSAIN Primary Care Unavaila Yessi Duran Primary Care Provider Unavailable Primary Care Provider Dianne Squires MD Primary Care Provider BHAVANI GUADALUPE Attending Unavailable Medications Current Medications Medication Drug Class(es) Dates Sig (Normalized) Sig (Original) desoximetasone 0.5 mg/ml topical cream (3 sources) Corticosteroid Start: 11-11-2016 End: 11-11-2017 desoximetasone (TOPICORT) 0.05 % cream Apply topically 2 (two) times a day. 30 g 0 11/11/2016 11/11/2017 Active fish oil-omega-3 fatty acids 300-1,000 mg capsule (1 source) take 1 capsule by mouth once daily fish oil-omega-3 fatty acids 300-1,000 mg capsule Take 2 g by mouth daily . 0 Active multivitamin (multivitamin) per tablet (1 source) take 1 tablet by mouth once daily multivitamin (multivitamin) per tablet Take 1 tablet by mouth daily . 0 Active pantoprazole 40 mg delayed release oral tablet (5 sources) Proton Pump Inhibitor Start: 01-31-2021 End: 04-29-2023 take 1 tablet by mouth once daily pantoprazole DR (PROTONIX) 40 mg tablet Indications: Laryngopharyngeal reflux , History of ulcer disease Take 1 tablet by mouth once daily. 30 tablet 11 04/29/2022 04/29/2023 Active Completed/Discontinued Medications Medication Drug Class(es) Dates Sig (Normalized) Sig (Original) escitalopram 5 mg oral tablet (3 sources) Serotonin Reuptake Inhibitor Start: 04-29-2022 take 1 tablet by mouth once daily for depression escitalopram oxalate (LEXAPRO) 5 mg tablet Indications: Situational depression Take 1 tablet by mouth once daily. for depression 30 tablet 11 04/29/2022 Active Problems Active Problems Problem Classification Problem Date Documented Date Episodic/Chronic Adjustment disorders (1 source) Reactive depression (situational); Translations: [Adjustment disorder with depressed mood] Chronic Allergic reactions (1 source) Atopic dermatitis Chronic Esophageal disorders (4 sources) Laryngopharyngeal reflux; Translations: [Gastro-esophageal reflux disease without esophagitis] Onset: 05-03-2013 Chronic Other inflammatory condition of skin (8 sources) Discoid lupus erythematosus; Translations: [Discoid lupus erythematosus] Onset: 12-23-2016 12-23-2016 Chronic Residual codes; unclassified (1 source) H/O: Disorder; Translations: [Personal history of other specified conditions] Episodic Past or Other Problems Problem Classification Problem Date Documented Da te Episodic/Chronic Abdominal pain (3 sources) Acute abdominal pain; Translations: [Unspecified abdominal pain] Onset: 3 04-29-2022 Episodic Esophageal disorders (4 sources) Laryngopharyngeal reflux; Translations: [Laryngopharyngeal reflux] Onset: 4 10-08-2016 Episodic Gastritis and duodenitis (3 sources) Gastritis; Translations: [Gastritis, unspecified, without bleeding] Onset: 3 04-29-2022 Episodic Gastroduodenal ulcer (except hemorrhage) (3 sources) H/O: peptic ulcer; Translations: [Personal history of peptic ulcer disease] Onset: 3 04-29-2022 Episodic Gastrointestinal hemorrhage (3 sources) Gastrointestinal hemorrhage; Translations: [Gastrointestinal hemorrhage, unspecified] Onset: 2 04-29-2022 Episodic Headache; including migraine (1 source) Headache; Translations: [Nonintractable headache, unspecified chronicity pattern, unspecified headache type] Episodic Immunizations and screening for infectious disease (9 sources) Patient encounter status; Translations: [Encounter for immunization] Onset: 3 Episodic Other aftercare (2 sources) Other intermediate designer (current) drug therapy; Translations: [Other intermediate designer (current) drug therapy] Onset: 7 Episodic Other connective tissue disease (3 sources) Foot pain; Translations: [Pain in unspecified foot] Onset: 1 04-29-2022 Episodic Other screening for suspected conditions (not mental disorders or infectious disease) (3 sources) Encounter for screening for lipoid disorders; Translations: [Encounter for screening for diabetes mellitus] Onset: 3 Episodic Other skin disorders (4 sources) Rash and other nonspecific skin eruption; Translations: [Disorder of the skin and subcutaneous tissue, unspecified] Onset: 7 Episodic Other skin disorders (1 source) Eruption Episodic Unclassified (1 source) Face lesion Results Test Name Value Interpretation Reference Range Facil ity Vital Signs Date Time Vital Sign Value Performing Clinician Facility 04-29-2022 10:39-0500 Body height 191.8 cm Bhavani Guadalupe APRN.SUPERVISOR AGRICULTURAL EDUCATION Work Phone: [facility] 04-29-2022 10:39-0500 Body weight 78.93 kg Bhavani Guadalupe APRN.SUPERVISOR AGRICULT[employer]UCATION Work Phone: [facility] 04-29-2022 10:39-0500 Diastolic blood pressure 70 mm[Hg] Bhavani Guadalupe APRN.SUPERVISOR AGRICULTURAL EDUCATION Work Phone: [facility] 04-29-2022 10:39-0500 Heart rate 108 /min Bhavani Guadalupe APRN.SUPERVISOR [employer]ULT[employer] EDUCATION Work Phone: [facility] 04-29-2022 10:39-0500 Respiratory rate 16 /min Bhavani Thomasons CAR OILER.SUPERVISOR [employer]GRICULTURAL EDUCATION Work Phone: [facility] 04-29-2022 10:39-0500 SaO2% (BldA) [Mass fraction] 99 % Bhavaniisaias Thomasons CAR OILER.SUPERVISOR [employer]GRICULTURAL EDUCATION Work Phone: [facility] 04-29-2022 10:39-0500 Systolic blood pressure 114 mm[Hg] Bhavani Guadalupe CAR OILER.SUPERVISOR [employer]GRICULTURAL EDUCATION Work Phone: [facility] 05-04-2018 16:00-0500 BP Diastolic 73 mm[Hg] Per Schroeder [facility] 05-04-2018 16:00-0500 BP Systolic 146 mm[Hg] Persravani Schroeder [facility] 05-04-2018 16:00-0500 Pulse (Heart Rate) 100 /min [facility] 05-04-2018 16:00-0500 Pulse Oximetry 99 % [facility] 05-04-2018 16:00-0500 Respiratory Rate 16 /min Persravani Schroeder [facility] 05-04-2018 13:19-0500 Body Temperature 97.59 [degF] Per Schroeder [facility] 05-04-2018 13:16-0500 BMI (Body Mass Index) 20.81 kg/m2 [facility] 05-04-2018 13:16-0500 Body weight 77.56 kg Persravani Schroeder [facility] 05-04-2018 13:16-0500 Height 193 [facility] 11-11-2016 08:41-0400 BMI (Body Mass Index) 21.55 kg/m2 George [facility] Work Phone: 11-11-2016 08:41-0400 BP Diastolic 75 mm[Hg] [facility] Work Phone: 11-11-2016 08:41-0400 BP Systolic 118 mm[Hg] [facility] Work Phone: 11-11-2016 08:41-0400 Height 193 cm [facility] Work Phone: 11-11-2016 08:41-0400 Pulse (Heart Rate) 93 /min [facility]: 11-11-2016 08:41-0400 Weight 80.29 kg [facility] Work Phone: Encounters Encounter Date Encounter Type Care Provider Facility Start: 01-24-2023 Telephone encounter Dianne arellano MD Work Phone: [facility] Procedures Date Procedure Procedure Detail Performing Clinician Start: 05-04-2018 Radiologic exam ches t single view Per O'Aaron Mekesa Work Phone: Start: 05-04-2018 CT of head without contrast Per O'Aaron Mekesa Work Phone: Start: 05-04-2018 Basic metabolic 2000 panel - Serum or Plasma Pre O'Aaron Mekesa Work Phone: Start: 05-04-2018 Complete blood count with white cell differential, automated Per O'Aaron Mekesa Work Phone: Start: 05-04-2018 Complete blood count with white cell differential, manual Per O'Aaron Mekesa Work Phone: Start: 05-04-2018 Drugs of abuse urine screening test Per O'Aaron Mekesa Work Phone: Start: 05-04-2018 LAVENDER TOP Per O' Aaron Mekesa Work Phone: Start: 05-04-2018 MINT GREEN TOP Per O'Aaron Mekesa Work Phone: Start: 05-04-2018 RAINBOW DRAW Per O' Aaron Mekesa Work Phone: Start: 05-04-2018 Troponin measurement Me melida O'Aaron Mekesa Work Phone: Start: 05-04-2018 Urinalysis Per O' Aaron Mekesa Work Phone: Start: 05-04-2018 URINE MELENDEZ CONTAINER Me melida O'Aaron Mekesa Work Phone: Plan of Treatment Date Care Activity Detail Author Start: 10-08-2026 TETANUS EVERY 10 YR TETANUS EVERY 10 YR [facility] Work Phone: Start: 10-08-2026 Tetanus vaccination TETANUS EVERY 10 YR [facility] Work Phone: Start: 04-29-2023 COVID-19 VACCINE (#1) COVID-19 VACCI NE (#1) [facility] Immunizations Immunization Date Immunization Notes Care Provider Delia high 03-26-2013 tetanus toxoid, adsorbed Bhavani Guadalupe CAR OILER.SUPERVISOR [employer]ULT[employer]UCATION Work Phone: [facility] Work Phone: Payers Date Payer Category Payer Medicaid [id number] 2. [id number] 2020 Medicaid [id number] 2018 Unknown 1975 Unknown [id number] 1975 Unknown [id number] Social History Date Type Detail Facility Start: 12-23-2016 End: 05-04-2018 Tobacco smoking status DEIS Current every day smoker [facility] Work Phone: Start: 12-23-2016 End: 10-01-2022 Cigarettes smoked current (pack per day) - Reported [facility] Work Phone: Start: 1975 Sex Assigned At Not on file [facility] Work Phone: Start: 10-08-2016 Tobacco Comment offer pharmacological options, declined today, will re address [facility] Start: 11-11-2016 Alcohol Comment occ [facility] Start: 04-29-2022 Tobacco smoking status DEIS Tobacco smoking consumption unknown [facility] Start: 04-29-2022 Tobacco use and exposure Former smokeless tobacco user [facility] Work Phone: History of tobacco use [facility] Work Phone: Start: 04-29-2022 Alcohol intake Current drinker of alcohol (finding) [facility] Start: 04-29-2022 Alcohol Comment occasionally [facility] Start: 04-29-2022 End: 10-01-2022 Tobacco use panel [facility] Work Phone: Adult Depression Screening Assessment 2 [facility] Work Phone: Goals Date Patient Goal Desired Activity /State Note 01-24-2023 Telephone Encounter - Natali Beckett RN - 01/24/2023 3:04 PM EDTTelephone Encounter - Martine Delvalle OCCA - 01/24/2023 2:59 PM EDTTelephone Encounter - Gayle Moore - 01/24/2023 11:41 AM EDT Note Date & Type Note Facility 01-24-2023 Miscellaneous Notes Formattin g of this note might be different from the original. Called and spoke with pt and states he no showed all his follow up appts due to transportation issues. He saw Bhavani Guadalupe on 04/29/22 and she ordered labs which pt never came and had drawn. She prescribed medications for his stomach and also something for depression. Pt states he is completely out of these medications. It appears that pt should have refills remaining. Called [facility] and pt does have refills. 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 Appt is made for pt for this Tuesday the with Bhavani Guadalupe and he can talk with her about ordering his labs again. Pt instructed that he must keep his appt in order to get refills or any labwork drawn. Pt verbalizes understanding. States he found out that he can call his insurance to arrange for a ride. In review of chart, patient has not had labs completed since 2019 and these were completed at an outside facility. Please review and advise. ROE 04/29/22 NOV is not scheduled Pt is wondering if he needs to get blood work done again. Please review and advise. Gayle Moore January 24, 2023 11:42 AM documented in this encounter [facility] Note 05-03-2022 Telephone Encounter - JESUS Sarabia - 05/03/2022 3:25 PM ESTTelephone Encounter - JESUS Sarabia - 04/29/2022 12:25 PM EST Note Date & Type Note Facility 05-03-2022 Miscellaneous Notes Formattin g of this note might be different from the original. Sw left 2nd message for patient regarding call back to discuss community resource needs. Sw left patient message to return Sw call to discuss community resource needs. documented in this encounter [facility] Progress note 04-29-2022 Note Date & Type Note Facility 04-29-2022 Note HNO ID: [id number] Author: Bhavani Guadalupe APRN.SUPERVISOR AGRICULTURAL EDUCATION Service: ? Author Type: Nurse Specialist Type: Progress Notes Filed: 04/29/2022 11:38 AM Note Text: SUBJECTIVE: HEPATITIS B(1 of 3 - 3-dose series) Never done HEPATITIS C SCREENING Never done HIV SCREENING Never done LIPID SCREEN Never done DIABETES SCREEN Never done COLORECTAL CANCER SCREENING Never done HPI Cherise Esteban is a 47 year old male. PMH significant for ACTIVE PROBLEM LIST Laryngopharyngeal Reflux Gastritis Dle (Discoid Lupus Erythematosus) Acute Abdominal Pain History of Peptic Ulcer Pain of Foot Gastrointestinal Hemorrhage, Unspecified Presents today to establish care with BP 114/70 Pulse 108 Resp 16 Ht 191.8 cm (6' 3.5 ) Wt 78.9 kg (174 lb) SpO2 99% BMI 21.46 kg/m? Previous PCP: [facility] Dr Lobo Foster [phone]. Last seen:~2 years Labwork: February 2021 ER/Hospitalization: February 2021 Outside records: care everywhere Reports recent divorce. Moved to area in December 2020. Reports low mood, interested in counseling, medication. No voiced SI, HI. Smokin-6 cigarettes per day Has seen Dr Coto medical physics researcher in the past. Rheumatology: has not treated lupus previously, diagnosed 2016. GERD/ LPR: taking PPI, carafate, does help symptoms GIB/History of ulcer: reports this, no records, not sure of ulcer location EGD/colonoscopy: states not previously completed Currently Heartburn: no Reflux: no Abdominal pain: no Nausea: no Vomiting: no Diarrhea: no Constipation:no BRBPR: no Black tarry:no He reports financial constraints, housing concerns. Notes fatigue due to lupus makes work difficult at times. Review of Systems Constitutional: Positive for fatigue. Gastrointestinal: Positive for abdominal pain. Skin: Positive for rash. Objective BP 114/70 Pulse 108 Resp 16 Ht 191.8 cm (6' 3.5 ) Wt 78.9 kg (174 lb) SpO2 99% BMI 21.46 kg/m? Physical Exam Vitals and nursing note reviewed. Constitutional: Appearance: Normal appearance. HENT: Head: Normocephalic and atraumatic. Eyes: Conjunctiva/sclera: Conjunctivae normal. Neck: Thyroid: No thyromegaly. Vascular: Normal carotid pulses. No JVD. Cardiovascular: Rate and Rhythm: Normal rate and regular rhythm. Pulses: Carotid pulses are 2+ on the right side and 2+ on the left side. Radial pulses are 2+ on the right side and 2+ on the left side. Heart sounds: Normal heart sounds. Pulmonary: Effort: Pulmonary effort is normal. Breath sounds: Normal breath sounds. Abdominal: General: Bowel sounds are normal. Palpations: Abdomen is soft. Musculoskeletal: Right lower leg: No edema. Left lower leg: No edema. Skin: General: Skin is warm and dry. Neurological: General: No focal deficit present. Mental Status: He is alert and oriented to person, place, and time. ALLERGIES No Known Allergies Medications sucralfate (CARAFATE) 1 gram tablet Take 1 tablet by mouth twice daily. pantoprazole DR (PROTONIX) 40 mg tablet Take 1 tablet by mouth once daily. escitalopram oxalate (LEXAPRO) 5 mg tablet Take 1 tablet by mouth once daily. for depression No past medical history on file. PAST SURGICAL HISTORY Procedure Laterality Date NONE Social History Tobacco Use Smokeless tobacco: Former Types: Chew Substance Use Topics Alcohol use: Yes Alcohol/week: 3.0 standard drinks Types: 3 Cans of beer per week Comment: occasionally Drug use: Not Currently FAMILY HISTORY Problem Relation Age of Onset No Known Problems Mother No Known Problems Father ASSESSMENT/PLAN: 1. Laryngopharyngeal reflux - ICD9: 478.79, ICD10: K21.9 (primary diagnosis) symptoms currently controlled He reports prior history of ulcer however states has not had EGD or colonoscopy in the past - COMP METABOLIC PANEL - SUCRALFATE 1 GRAM TABLET - PANTOPRAZOLE 40 MG TABLET,DELAYED RELEASE - CBC + DIFF - CONSULT TO GENERAL SURGERY 2. Encounter for immunization - ICD9: V03.89, ICD10: Z23 declined 3. Special screening examination for viral disease - ICD9: V73.99, ICD10: Z11.59 - HEP C AB IA W/CONF SCRN 4. Screening for HIV (human immunodeficiency virus) - ICD9: V73.89, ICD10: Z11.4 - HIV 1 2 COMBO(AG/AB),WITH REFLEX TO DIFFERENTIATION 5. Screening for lipid disorders - ICD9: V77.91, ICD10: Z13.220 - LIPID PANEL BASIC 6. Screening for diabetes mellitus (DM) - ICD9: V77.1, ICD10: Z13.1 8. DLE (discoid lupus erythematosus) - ICD9: 695.4, ICD10: L93.0 - CONSULT TO RHEUM/IMMUN DISEASE - PRIMARY CARE SOCIAL WORK CONSULT - CBC + DIFF 9. History of ulcer disease - ICD9: V13.89, ICD10: Z87.898 - SUCRALFATE 1 GRAM TABLET - PANTOPRAZOLE 40 MG TABLET,DELAYED RELEASE - CONSULT TO GENERAL SURGERY 10. Situational depression - ICD9: 309.0, ICD10: F43.21 - DEPRESSION SCREENING/ASSESSMENT - ESCITALOPRAM 5 MG TABLET Advised: Start taking a escitalopram once daily t (more content not included)... [facility] Instructions 04-29-2022 Patient Instructions Note Date & Type Note Facility 04-29-2022 Андрей Guadalupe APRN.RUSS - 04/29/2022 11:29 AM EST Start taking a escitalopram once daily to help with mood / depression Stop taking and let us know if any problems with this medication Recheck with me in 1 month. A social contact worker with behavioral health will reach out to you and provide resources for counseling Complete lab work today or at your next visit. Schedule appointment with key account representative for lupus. Consider seeing general surgeon for further evaluation of abdominal pain and reflux, your history of ulcer. A social contact worker will reach out regarding community resources and financial difficulty. documented in this encounter [facility] History of Present illness Narrative 04-29-2022 Bhavani Guadalupe APRN.CNS - 04/29/2022 10:40 AM EST Note Date & Type Note Facility 04-29-2022 History of Presen t illness Narrative SUBJECTIVE: HEPATITIS B(1 of 3 - 3-dose series) Never done HEPATITIS C SCREENING Never done HIV SCREENING Never done LIPID SCREEN Never done DIABETES SCREEN Never done COLORECTAL CANCER SCREENING Never done HPI Cherise Esteban is a 47 year old male. PMH significant for ACTIVE PROBLEM LIST Laryngopharyngeal Reflux Gastritis Dle (Discoid Lupus Erythematosus) Acute Abdominal Pain History of Peptic Ulcer Pain of Foot Gastrointestinal Hemorrhage, Unspecified Presents today to establish care with BP 114/70 Pulse 108 Resp 16 Ht 191.8 cm (6' 3.5 ) Wt 78.9 kg (174 lb) SpO2 99% BMI 21.46 kg/m Previous PCP: [facility] Dr Lobo Foster [phone]. Last seen:~2 years Labwork: February 2021 ER/Hospitalization: February 2021 Outside records: care everywhere Reports recent divorce. Moved to area in December 2020. Reports low mood, interested in counseling, medication. No voiced SI, HI. Smokin-6 cigarettes per day Has seen Dr Coto medical physics researcher in the past. Rheumatology: has not treated lupus previously, diagnosed 2016. GERD/ LPR: taking PPI, carafate, does help symptoms GIB/History of ulcer: reports this, no records, not sure of ulcer location EGD/colonoscopy: states not previously completed Currently Heartburn: no Reflux: no Abdominal pain: no Nausea: no Vomiting: no Diarrhea: no Constipation:no BRBPR: no Black tarry:no He reports financial constraints, housing concerns. Notes fatigue due to lupus makes work difficult at times. Review of Systems Constitutional: Positive for fatigue. Gastrointestinal: Positive for abdominal pain. Skin: Positive for rash. Objective BP 114/70 Pulse 108 Resp 16 Ht 191.8 cm (6' 3.5 ) Wt 78.9 kg (174 lb) SpO2 99% BMI 21.46 kg/m Physical Exam Vitals and nursing note reviewed. Constitutional: Appearance: Normal appearance. HENT: Head: Normocephalic and atraumatic. Eyes: Conjunctiva/sclera: Conjunctivae normal. Neck: Thyroid: No thyromegaly. Vascular: Normal carotid pulses. No JVD. Cardiovascular: Rate and Rhythm: Normal rate and regular rhythm. Pulses: Carotid pulses are 2+ on the right side and 2+ on the left side. Radial pulses are 2+ on the right side and 2+ on the left side. Heart sounds: Normal heart sounds. Pulmonary: Effort: Pulmonary effort is normal. Breath sounds: Normal breath sounds. Abdominal: General: Bowel sounds are normal. Palpations: Abdomen is soft. Musculoskeletal: Right lower leg: No edema. Left lower leg: No edema. Skin: General: Skin is warm and dry. Neurological: General: No focal deficit present. Mental Status: He is alert and oriented to person, place, and time. ALLERGIES No Known Allergies Medications sucralfate (CARAFATE) 1 gram tablet Take 1 tablet by mouth twice daily. pantoprazole DR (PROTONIX) 40 mg tablet Take 1 tablet by mouth once daily. escitalopram oxalate (LEXAPRO) 5 mg tablet Take 1 tablet by mouth once daily. for depression No past medical history on file. PAST SURGICAL HISTORY Procedure Laterality Date NONE Social History Tobacco Use Smokeless tobacco: Former Types: Chew Substance Use Topics Alcohol use: Yes Alcohol/week: 3.0 standard drinks Types: 3 Cans of beer per week Comment: occasionally Drug use: Not Currently FAMILY HISTORY Problem Relation Age of Onset No Known Problems Mother No Known Problems Father ASSESSMENT/PLAN: 1. Laryngopharyngeal reflux - ICD9: 478.79, ICD10: K21.9 (primary diagnosis) symptoms currently controlled He reports prior history of ulcer however states has not had EGD or colonoscopy in the past - COMP METABOLIC PANEL - SUCRALFATE 1 GRAM TABLET - PANTOPRAZOLE 40 MG TABLET,DELAYED RELEASE - CBC + DIFF - CONSULT TO GENERAL SURGERY 2. Encounter for immunization - ICD9: V03.89, ICD10: Z23 declined 3. Special screening examination for viral disease - ICD9: V73.99, ICD10: Z11.59 - HEP C AB IA W/CONF SCRN 4. Screening for HIV (human immunodeficiency virus) - ICD9: V73.89, ICD10: Z11.4 - HIV 1 2 COMBO(AG/AB),WITH REFLEX TO DIFFERENTIATION 5. Screening for lipid disorders - ICD9: V77.91, ICD10: Z13.220 - LIPID PANEL BASIC 6. Screening for diabetes mellitus (DM) - ICD9: V77.1, ICD10: Z13.1 8. DLE (discoid lupus erythematosus) - ICD9: 695.4, ICD10: L93.0 - CONSULT TO RHEUM/IMMUN DISEASE - PRIMARY CARE SOCIAL WORK CONSULT - CBC + DIFF 9. History of ulcer disease - ICD9: V13.89, ICD10: Z87.898 - SUCRALFATE 1 GRAM TABLET - PANTOPRAZOLE 40 MG TABLET,DELAYED RELEASE - CONSULT TO GENERAL SURGERY 10. Situational depression - ICD9: 309.0, ICD10: F43.21 - DEPRESSION SCREENING/ASSESSMENT - ESCITALOPRAM 5 MG TABLET Advised: Start taking a escitalopram once daily to help with mood / depression Stop taking and let us know if any problems with this medication Recheck with me in 1 month. A social contact worker with behavioral health will reach out to you and provide resources for counseling Complete lab work today or at your next visit. Schedule appointment with key account representative for lupus. Consider seeing general surgeon for further evaluation of abdominal pain and reflux, your history of ulcer. A social contact worker will reach out regarding community resources and financial difficulty. 1 mo recheck - Bhaavni Guadalupe APRN.CNS 6 mo Dianne Britton MD - establish Bhavani Guadalupe APRN.CNS Medical Decision Making: Problems: Moderate: 2+ stable chronic illnesses Data: Unique test(s) ordered: 3+ Risk: Moderate: Drug management Medical Decision Making Level: 4 - Moderate documented in this encounter [facility] Note 01-06-2022 Telephone Encounter - Joy Bragg Ma - 01/06/2022 12:11 PM EDTTelephone Encounter - Taylor Thomas - 01/05/2022 2:23 PM EDT Note Date & Type Note Facility 01-06-2022 Miscellaneous Notes Formattin g of this note might be different from the original. Dr. Britton is accepting new patients, however new and established patient's are scheduling at least 8 months out. Can see DRESSMAKER OR TAILOR Bhavani Guadalupe as well and follow-up with Dr. Britton next appointment Pt calling in wanting to be seen with Dr. Britton. Pt said his mother is a current pt. Please advise documented in this encounter [facility] Evaluation note Note Date & Type Note Facility documented in this encounter [facility] Assessments Diagnosis DLE (discoid lupus erythemat osus) - Primary Lupus erythematosus High risk medication use Diagnosis Atopic dermatitis, unspecifi ed type - Primary Face lesion Unspecified disorder of skin and subcutaneous tissue Diagnosis Rash of unknown cause - Prim sid Diagnosis Nonintractable headache, unspecified chronicity pattern, unspecified headache type- Primary Summary Purpose Family History No Family History Records FoundNo Family History Records FoundNo Family History Records FoundNo Family History Records Found Advance Directives No Advanced Directives Records FoundNo Advanced Directives Records FoundNo Advanced Directives Records Found Patient has advance care planning documents on file. For more information, please contact: [place] [address] No Advanced Directives Records Found Reason for Referral Status Reason Specialty Diagnoses / Procedures Referred By Contact Referred To Contact Closed Plastic Surgery Diagnoses Face lesion Laureano Alex CNP [address] [place] [address] George Perkins II, MD [address] [place] [address] Status Reason Specialty Diagnoses / Procedures Referred By Contact Referred To Contact Closed Specialty Services Required/Patient 's Best Interest Dermatology Diagnoses Atopic dermatitis, unspecified type George Perkins II, MD [address] [place] [address] [facility] [place] [address] [place] [id number] Specialty Diagnoses / Procedures Referred By Contac t Referred To Contact General Surgery Diagnoses Laryngopharyngeal reflux History of ulcer disease Procedures CONSULT TO GENERAL SURGERY OFFICE/OUTPATIENT [facility] 60-74 MINUTES Bhavani Guadalupe, CAR O[employer]ER.[facility] [address] [place] [id number] Referral ID Status Reason Start Date Expiration Date Visits Requested Visits Authorized [id number] Authorized PCP Requested Referral 04/29/2022 04/29/2023 1 1 Specialty Diagnoses / Procedures Referred By Carlos cobb Referred To Contact Rheumatology Diagnoses DLE (discoid lupus erythematosus) Procedures CONSULT TO RHEUM/IMMUN DISEASE OFFICE/OUTPATIENT [facility] 60-74 MINUTES Bhavani Guadalupe, CAR OILER.[facility] [address] [place] [address] Referral ID Status Reason Start Date Expiration Date Visits Requested Visits Authorized [id number] Authorized PCP Requested Referral 04/29/2022 04/29/2023 1 1 History of Present Illness * George Perkins II, MD - 11/12/2016 12:57 PM EDT Formatting of this note may be different from the original. Cherise Esteban male 41 y.o. 11/12/16 Chief Complaint Facial Laceration HPI Facial Laceration Additional comments: right lower laceration to cheek Last edited by Clari Macrus LPN on 11/11/2016 8:39 AM. (History) Brief Review of HPI, Focused Exam, and Assessment and Plan Dictation on: 11/12/2016 12:59 PM by: GEORGE PERKINS [[id number]] Allergies: No known drug allergies Outpatient Prescriptions as of 11/11/2016 Medication Sig ranitidine (ZANTAC) 150 MG tablet Take 150 mg by mouth daily. Review of Systems Constitutional: Negative for chills and fever. HENT: Negative for nosebleeds, rhinorrhea, sinus pressure and sneezing. Eyes: Negative for pain, redness and itching. Respiratory: Negative for cough, choking, shortness of breath and wheezing. Cardiovascular: Negative for chest pain and palpitations. Gastrointestinal: Negative for nausea and vomiting. Endocrine: Negative for polydipsia and polyuria. Neurological: Negative for dizziness, seizures, syncope, facial asymmetry and weakness. Active Ambulatory Problems Diagnosis Date Noted Laryngopharyngeal reflux 05/03/2013 Resolved Ambulatory Problems Diagnosis Date Noted No Resolved Ambulatory Problems No Additional Past Medical History Social History Social History Marital status: Spouse name: N/A Number of children: N/A Years of education: N/A Occupational History Not on file. Social History Main Topics Smoking status: Current Every Day Smoker Packs/day: 0.50 Years: 22.00 Smokeless tobacco: Not on file Comment: offer pharmacological options, declined today, will re address Alcohol use 1.2 oz/week 2 Cans of beer per week Comment: occ Drug use: No Sexual activity: Not on file Other Topics Concern Not on file Social History Narrative Family History Problem Relation Age of Onset Hypertension Mother EXAM Vitals: 11/11/16 0841 BP: 118/75 Pulse: 93 Weight: 80.3 kg (177 lb) Height: 6' 4 General: Normal Mood and affect, pleaseant demanor HEENT: Pupils Equal Round Reactive to Light; Extraocular Movements intact Chest: Normal Rise and Fall, Normal Gait and stride, with normal arm and shoulder motion. George Perkins II, MD in this encounter* [place], Zoran Islas, DO - 12/09/2016 10:48 AM EDT Formatting of this note may be different from the original. Cherise Esteban is a 41 y.o. male who presents for Skin Lesion. Location: right law Course: Improving on topical steroids Symptoms: Pain? Things previously tried: OTC topicals and Prescription topicals? Duration: 2 years Pt presents as a referral from Dr Perkins for eval of a right law lesion that has been there for over2 years. Pt reports that he woke up with a scratch 2 years ago and it has never healed. He has tried neosporin and other topical creams. He reports that it has itched but is not painful. He was puton Topicort by Dr. Perkins and reports that the area seems to be getting better. Review of Systems Constitutional: Malaise: No Skin: Other new or changing growths on skin: No Denies joint pain, fevers, chills, myalgias. Denies any personal or family history of autoimmune conditions including sarcoidosis and lupus. History reviewed. No pertinent past medical history. Past Medical History Pertinent Negatives: Diagnosis Date Noted Basal cell carcinoma 12/09/2016 Melanoma (HCC) 12/09/2016 Squamous cell skin cancer 12/09/2016 Cancer-related family history is not on file. Allergies and Meds: Reviewed in electronic medical record Physical Exam The following areas were within normal limits except as noted otherwise in this note: Exposed: Oriented x 3/ alert; development/nourishment; mood/affect; scalp/hair; face; eyes/eyelids;lips; neck; digits/nails. Assessment & Plan 1. Rash and other nonspecific skin eruption (R21) DDx: Discoid Lupus vs Sarcoidosis vs other granulomatous disease; Diagnostic possibilities explained. The patient chooses to proceed with biopsy. Seeprocedure note. DC topicort for now until bx report is back. Pertinent PE: 2.5 x 1 cm depigmented plaque with erythematous and violaceous raised borders on the right jaw PROCEDURE NOTE PROCEDURE: Punch biopsy 12/09/2016 INFORMED CONSENT: The risks including, but not limited to scar, bleeding and infection were explained and the patient expresses an understanding SITE: Right jaw METHOD: 4 mm punch tool HEMOSTASIS: 5-0 nylon ANESTHESIA: 1% Lidocaine without epinephrine WOUND CARE: Instructions provided to the patient. PERFORMED BY: Zoran Lopez DO in this encounter Discharge Instructions * Attachments The following attachments cannot be sent through Care Everywhere. * Headache (Croatian) * Lupus (Croatian) in this encounter Additional Source Comments (unrecognized sect ion and content) No Status Records FoundNo Status Records FoundNo Status Records FoundNo Status Records Found INFORMATION SOURCE (unrecogn ized section and content) DATE CREATED AUTHOR AUTHOR'S ORGANIZ ATION 10/05/2017 [facility] DATE CREATED AUTHOR AUTHOR'S ORGANIZ ATION 01/14/2019 [facility] DATE CREATED AUTHOR AUTHOR'S ORGANIZ ATION 01/25/2023 [facility] Reason for Visit (unrecogniz ed section and content) Status Reason Specialty Diagnoses / Procedures Referred By Contact Referred To Contact Closed Plastic Surgery Diagnoses Face lesion Laureano Alex CNP [address] [place] [address] George Perkins II, MD [address] [place] [phone] Reason Comments Skin Lesion Status Reason Specialty Diagnoses / Procedures Referred By Contact Referred To Contact Closed Specialty Services Required/Patient 's Best Interest Dermatology Diagnoses Atopic dermatitis, unspecified type George Perkins II, MD [address] [place] [address] [facility] [place] [id number] Reason Comments Headache post seizure check Reason Comments Patient Question Reason Comments Establish Care Reason Comments Social Work Services Deanna Olivas MSW - 05/04/2018 2:21 PM Per Simpson RN - 05/04/2018 1:15 PM EST ED Notes (unrecognized secti on and content) DISCHARGE PLAN PROGRESS NOTE Date: 05/04/2018 Time: 2:21 PM Patient Name: Cherise Esteban Date of : 1975 Sex: Male [facility] Disposition D/C Disposition: Home Community/Outpatient Referral: Community mental health, Jail, Other (Comment), Homeless ED SW met with the patient regarding community resources due to patient's homelessness. Patient shares that after being with his for 15 years, about a month ago, he left the house after an argument. The patient shares that he is legally and is not planning on returning. The patient shares that he has applied for SSI but has been denied due to being . The patient denies that he has an income at this time. Patient has been staying with different friends at night and at times will leave if he does not agree with their lifestyle. The patient shares that some nights he sleeps on a bench. The patient denies wanting to go to the [place] [facility] or reach out to any agency for help as he feels like other people deserve it more. SW encouraged the patient and validated his concerns but informed him that resources are available for everyone. Patient was thankful for the community resources of meals and local resources. SW strongly encouraged the patient to call [facility]. Patient is thankful and denies additional needs at this time. If needed, when ready for discharge, SW can provide a taxi for transportation due to limited resources. Please notified SW if any additional needs or concerns arise. I had a seizure last night. I couldn't come in until now to be checked. in this encounter Source Comments (unrecognize d section and content) In the event this informatio n is protected by the Federal Confidentiality of Alcohol and Drug Abuse Patient Records regulations: The Federal rules restrict any use of the information to criminally investigate or prosecute any alcohol or drug abuse patient.[facility] the event this information is protected by the Federal Confidentiality of Alcohol and Drug Abuse Patient Records regulations: The Federal rules restrict any use of the information to criminally investigate or prosecute any alcohol or drug abuse patient.[facility] the event this information is protected by the Federal Confidentiality of Alcohol and Drug Abuse Patient Records regulations: The Federal rules restrict any use of the information to criminally investigate or prosecute any alcohol or drug abuse patient.[facility] the event this information is protected by the Federal Confidentiality of Alcohol and Drug Abuse Patient Records regulations: The Federal rules restrict any use of the information to criminally investigate or prosecute any alcohol or drug abuse patient.[facility] Care Teams (unrecognized sec tion and content) Messaging Architect Relationship Specialty Start Date End Date Dianne Britton MD [address], [place] [id number] PCP - General Internal Medicine 04/29/22 Messaging Architect Relationship Specialty Start Date End Date Dianne Britton MD [address], [place] [address] PCP - General Internal Medicine 04/29/22 FOR RECORDS PERTAINING TO PATIENTS WHO ARE OR HAVE BEEN ENROLLED IN A CHEMICAL DEPENDENCY/SUBSTANCEABUSE PROGRAM, SOME INFORMATION MAY BE OMITTED. This clinical summary was aggregated from multiple sources. Caution should be exercised in using it in the provision of clinical care. This summary normalizes information from multiple sources, and as a consequence, information in this document may materially change the coding, format and clinical context of patient data. In addition, data may be omitted in some cases. CLINICAL DECISIONS SHOULD BE BASED ON THE PRIMARY CLINICAL RECORDS. [employer] [facility]. provides no warranty or guarantee of the accuracy or completeness of information in this document.
[2023-04-13 00:28] LABS: Absolute Lymphocyte Count 1.97 X10^3/uL (0.83-4.51); Absolute Neutrophil Count 2.8 X10^3/uL (2.0-7.7); Basophil# 0.04 X10^3/uL; Basophil% 0.7 % (0-1); Eosinophil# 0.25 X10^3/uL; Eosinophils% 4.6 % (0-5); Hematocrit 42.3 % (40-54); Hemoglobin 13.7 g/dL (13.0-16.5); Lymphocyte # 1.97 X10^3/ul (0.83-4.51); Lymphocyte % 36.2 % (19-41); Mean Corp Hgb Conc 32.4 g/dL (32-36); Mean Corpuscular Hgb 29.7 pg (27.0-32.0); Mean Corpuscular Volume 91.6 fL (80-94); Mean Platelet Vol. 8.8 fl (6.2-12.0); Monocyte# 0.41 X10^3/uL; Monocyte% 7.5 % (0-10); NRBC Flagged by Analyzer 0 % (0-5); Neutrophil # 2.75 X10^3/uL (2.7-7.7); Neutrophil % 50.6 % (47-70); Platelet Count 226 K/mm3 (150-450); RBC Distribution Width CV 12.5 % (11.6-14.6); RBC Distribution Width SD 41.9 fl (35.1-43.9); Red Blood Count 4.62 M/mm3 (4.6-6.2); White Blood Count 5.4 K/mm3 (4.4-11.0)
[2023-04-13 00:47] LABS: AST(SGOT) 18 U/L (15-37); Alanine Aminotransfer ALT/SGPT 20 U/L (16-61); Albumin, Serum 3.6 g/dL (3.2-5.0); Alkaline Phosphatase 81 U/L (45-117); Anion Gap 1 (5-15); BUN 14 mg/dL (7-18); BUN/Creat Ratio 16.1 RATIO (10-20); Calcium,Total 8.8 mg/dL (8.5-10.1); Chloride 106 mmol/L (98-107); Creatinine, Serum 0.87 mg/dL (0.70-1.30); EST Glomerular Filtration Rate 100 mL/min (>60); Est Glom Filt Rate - Afr Amer 121 mL/min (>60); Estimated Creatinine Clearance 124.11 ml/min; Globulin 3.7 g/dL (2.2-4.2); Glucose 81 mg/dL (74-106); Potassium 3.7 mmol/L (3.5-5.1); Protein, Total 7.3 g/dL (6.4-8.2); Sodium Level 139 mmol/L (136-145)
[2023-04-13 01:01] LABS: Bacteria 0 SEEN /hpf (None Seen); Mucous, Urine 0 SEEN /hpf (<or=2+); Red Blood Cells-Urine 0 SEEN /hpf (0-5); Squamous Epithelial Cells - UA 0 SEEN /hpf (0-5)
[2023-04-13 01:02] LABS: Color, Urine Yellow (Yellow); Glucose, Dipstick Normal (Normal); Ketone-Dipstick Negative (Negative); Leukocyte Esterase-Dipstick 25 /ul (Negative); Nitrite-Dipstick Negative (Negative); Occult Blood-Urine 10 /ul (Negative); Protein-Dipstick Negative (Negative); Specific Gravity, Urine 1.025 (1.002-1.030); Urine Bilirubin Dipstick Negative (Negative); Urine Clarity Clear (Clear); Urine Urobilinogen Normal (Normal)
[2023-04-13 01:09] LABS: White Blood Cells 0-5 SEEN /hpf (0-5)
[2023-04-13 01:35] LABS: Amphetamine Urine VISTA POSITIVE (<1000 ng/mL); Barbiturate Urine VISTA NEGATIVE (< 200 ng/mL); Benzodiazepine Urine VISTA NEGATIVE (< 200 ng/mL); Cocaine Urine VISTA NEGATIVE (< 300 ng/mL); Ecstacy Urine VISTA NEGATIVE (< 500 ng/mL); Methadone Urine VISTA NEGATIVE (< 300 ng/mL); PCP Urine VISTA NEGATIVE (< 25 ng/mL); THC Urine VISTA POSITIVE (< 50 ng/mL); Vista UDS pH Range 5
== END 2023-04-13 02:12 | disposition home or self-care (01) ==
PROVIDERS: Emergency Provider Emergency Medicine; Visit Provider Emergency Medicine
DX: R41.0 Disorientation, unspecified (principal); Z59.00 Homelessness unspecified; F17.200 Nicotine dependence, unspecified, uncomplicated; L93.2 Other local lupus erythematosus; K21.9 Gastro-esophageal reflux disease without esophagitis; R53.1 Weakness
CPT/HCPCS: 70450; 80048; 80076; 80307; 80320; 81001; 85025; 99283; A4216; G0480

== ENCOUNTER 2023-04-15 01:25 | Emergency (ER) | payer MEDICAID, SELFPAY ==
[2023-04-15 01:27] VITALS: BP 145/112; PULSE 75; RESP 18; TEMP 36.4; O2SAT 96; BMI 26.2
--- OUTSIDE RECORDS SUMMARY | 2023-04-15 01:45 | XMS RPT_ITS | CCD ---
Author Name Unknown Address [id number] [place] [address] Organization [facility] Care Team Providers Care Old Coin Dealer Name Role Phone Yessi Husain Unavailable LAUREANO ALEX Unavailable Unavail able YESSI [...] 3 Episodic Other aftercare (2 sources) Other buttermaker continuous churn (current) drug therapy; Translations: [Other buttermaker continuous churn (current) drug therapy] Onset: 7 Episodic Other [...] 10:39-0500 Body height 191.8 cm Bhavani Guadalupe APRN.COLOR CHECKER [employer] Work Phone: [facility] 04-29-2022 10:39-0500 Body weight 78.93 kg Bhavani Guadalupe APRN.COLOR CHECKER [employer] Work Phone: [facility] 04-29-2022 10:39-0500 Diastolic blood pressure 70 mm[Hg] Bhavani Guadalupe APRN.COLOR CHECKER [employer] Work Phone: [facility] 04-29-2022 10:39-0500 Heart rate 108 /min Bhavani Guadalupe APRN.COLOR CHECKER [employer] Work Phone: [facility] 04-29-2022 10:39-0500 Respiratory rate 16 /min Bhavani Thomasons MULTI SPINDLE OPERATOR.COLOR CHECKER [employer] Work Phone: [facility] 04-29-2022 10:39-0500 SaO2% (BldA) [Mass fraction] 99 % Bhavaniisaias Thomasons MULTI SPINDLE OPERATOR.COLOR CHECKER [employer] Work Phone: [facility] 04-29-2022 10:39-0500 Systolic blood pressure 114 mm[Hg] Bhavani Guadalupe MULTI SPINDLE OPERATOR.COLOR CHECK[employer] Work Phone: [facility] 05-04-2018 16:00-0500 BP Diastolic 73 mm[Hg] Per Schroeder [facility] 05-04-2018 16:00-0500 BP Systolic 146 mm[Hg] Persravani Schroeder [facility] 05-04-2018 16:00-0500 Pulse (Heart Rate) 100 /min [facility] 05-04-2018 16:00-0500 Pulse Oximetry 99 % [facility] 05-04-2018 16:00-0500 Respiratory Rate 16 /min Persravani Schroeder [facility] 05-04-2018 13:19-0500 Body Temperature 97.59 [degF] Per Schroeder [facility] 05-04-2018 13:16-0500 BMI (Body Mass Index) 20.81 kg/m2 [facility] 05-04-2018 13:16-0500 Body weight 77.56 kg Persravani Schroeder [facility] 05-04-2018 13:16-0500 Height 193 cm [facility] 11-11-2016 08:41-0400 BMI (Body Mass Index) 21.55 kg/m2 [facility] Work Phone: 11-11-2016 08:41-0400 BP Diastolic 75 mm[Hg] [facility] Work Phone: 11-11-2016 08:41-0400 BP Systolic 118 mm[Hg] [facility] Work Phone: 11-11-2016 08:41-0400 Height 193 cm [facility] Work Phone: 11-11-2016 08:41-0400 Pulse (Heart Rate) 93 /min [facility]: 11-11-2016 08:41-0400 Weight 80.29 [facility]: Encounters Encounter Date Encounter Type [...] metabolic 2000 panel - Serum or Plasma Per O'Aaron Mekesa Work Phone: Start: 05-04-2018 [...] EVERY 10 YR TETANUS EVERY 10 YR [facility] Work Phone: Start: 10-08-2026 Tetanus vaccination TETANUS EVERY 10 YR [facility] Work Phone: Start: 04-29-2023 COVID-19 VACCINE (#1) COVID-19 VACCI NE (#1) [facility] Immunizations Immunization Date Immunization Notes Care Provider Delia high 03-26-2013 tetanus toxoid, adsorbed Bhavani Guadalupe MULTI SPINDLE OPERATOR.COLOR CHECKER [employer] Work Phone: [facility] Work Phone: Payers Date Payer Category Payer Medicaid [id number] 2. [id number] 2020 Medicaid [id number] 2018 Unknown 1975 Unknown [id number] 1975 Unknown [id number] Social History Date Type Detail Facility Start: 12-23-2016 End: 05-04-2018 Tobacco smoking status NDIS Current every day smoker [facility] Work Phone: Start: 12-23-2016 End: 10-01-2022 Cigarettes smoked current (pack per day) - Reported [facility] Work Phone: Start: 1975 Sex Assigned At Not on file [facility] Work Phone: Start: 10-08-2016 Tobacco Comment offer pharmacological options, declined today, will re address [facility] Start: 11-11-2016 Alcohol Comment occ [facility] Start: 04-29-2022 Tobacco smoking status NDIS Tobacco smoking consumption unknown [facility] Start: 04-29-2022 Tobacco use and exposure Former smokeless tobacco user [facility] Work Phone: History of tobacco use Chews [facility] Work Phone: Start: 04-29-2022 Alcohol intake Current drinker of alcohol (finding) [facility] Start: 04-29-2022 Alcohol Comment occasionally [facility] Start: 04-29-2022 End: 10-01-2022 Tobacco use panel [facility] Work Phone: Adult Depression Screening Assessment 2 [facility] Work Phone: Goals Date Patient Goal Desired [...] They will refill them and pt can hot die picker later today. Appt is made for pt [...] 2023 11:42 AM documented in this encounter [facility] Note 05-03-2022 Telephone Encounter - JESUS Sarabia [...] community resource needs. documented in this encounter [facility] Progress note 04-29-2022 Note Date & Type Note Facility 04-29-2022 Note HNO ID: [id number] Author: Bhavani Guadalupe APRN.COLOR CHECKER [employer] Service: ? Author Type: Nurse Specialist Type: [...] SpO2 99% BMI 21.46 kg/m? Previous PCP: [facility] Dr Lobo Foster [phone]. Last seen:~2 years Labwork: February 2021 ER/Hospitalization: February 2021 Outside records: care everywhere Reports recent divorce. Moved to area in December 2020. Reports low mood, interested in counseling, medication. No voiced SI, HI. Smokin-6 cigarettes per day Has seen Dr Coto milking machine mechanic in the past. Rheumatology: has not treated [...] daily t (more content not included)... [facility] Instructions 04-29-2022 Patient Instructions Note Date & Type Note Facility 04-29-2022 Андрей Guadalupe APRN.RUSS - 04/29/2022 11:29 AM EST Start taking a escitalopram once daily to help with mood / depression Stop taking and let us know if any problems with this medication Recheck with me in 1 month. A social work nurse with behavioral health will reach out to you and provide resources for counseling Complete lab work today or at your next visit. Schedule appointment with director of resource development for lupus. Consider seeing general surgeon for further evaluation of abdominal pain and reflux, your history of ulcer. A social work nurse will reach out regarding community resources and financial difficulty. documented in this encounter [facility] History of Present illness Narrative 04-29-2022 Bhavani [...] SpO2 99% BMI 21.46 kg/m Previous PCP: [facility] Dr Lobo Foster [phone]. Last seen:~2 years Labwork: February 2021 ER/Hospitalization: February 2021 Outside records: care everywhere Reports recent divorce. Moved to area in December 2020. Reports low mood, interested in counseling, medication. No voiced SI, HI. Smokin-6 cigarettes per day Has seen Dr Coto milking machine mechanic in the past. Rheumatology: has not treated [...] with me in 1 month. A social work nurse with behavioral health will reach out to you and provide resources for counseling Complete lab work today or at your next visit. Schedule appointment with director of resource development for lupus. Consider seeing general surgeon for further evaluation of abdominal pain and reflux, your history of ulcer. A social work nurse will reach out regarding community resources and financial difficulty. 1 mo recheck - Bhavani Guadalupe APRN.CNS 6 mo Dianne Britton MD - establish Bhavani Guadalupe APRN.CNS Medical Decision Making: Problems: Moderate: 2+ stable chronic illnesses Data: Unique test(s) ordered: 3+ Risk: Moderate: Drug management Medical Decision Making Level: 4 - Moderate documented in this encounter [facility] Note 01-06-2022 Telephone Encounter - Joy Bragg Ma - 01/06/2022 12:11 PM EDTTelephone Encounter - Taylor Thomas - 01/05/2022 2:23 PM EDT Note Date & Type Note Facility 01-06-2022 Miscellaneous Notes Formattin g of this note might be different from the original. Dr. Britton is accepting new patients, however new and established patient's are scheduling at least 8 months out. Can see PHARMACEUTICAL REPRESENTATIVE Bhavani Guadalupe as well and follow-up with Dr. Britton next appointment Pt calling in wanting to be seen with Dr. Britton. Pt said his mother is a current pt. Please advise documented in this encounter [facility] Evaluation note Note Date & Type Note Facility documented in this encounter [facility] Assessments Diagnosis DLE (discoid lupus erythemat osus) [...] on file. For more information, please contact: [place] [address] No Advanced Directives Records Found Reason for Referral Status Reason Specialty Diagnoses / Procedures Referred By Contact Referred To Contact Closed Plastic Surgery Diagnoses Face lesion Laureano Alex CNP [address] [place] [address] George Perkins II, MD [address] [place] [address] Status Reason Specialty Diagnoses / Procedures Referred By Contact Referred To Contact Closed Specialty Services Required/Patient 's Best Interest Dermatology Diagnoses Atopic dermatitis, unspecified type George Perkins II, MD [address] [place] [address] [facility] [place] [address] [place] [address] Specialty Diagnoses / Procedures Referred By Contac t Referred To Contact General Surgery Diagnoses Laryngopharyngeal reflux History of ulcer disease Procedures CONSULT TO GENERAL SURGERY OFFICE/OUTPATIENT [facility] 60-74 MINUTES Bhavani Guadalupe, MULTI SPINDLE OPERATOR.[facility] [address] [place] [address] Referral ID Status Reason Start Date Expiration Date Visits Requested Visits Authorized [id number] Authorized PCP Requested Referral 04/29/2022 04/29/2023 1 1 Specialty Diagnoses / Procedures Referred By Carlos cobb Referred To Contact Rheumatology Diagnoses DLE (discoid lupus erythematosus) Procedures CONSULT TO RHEUM/IMMUN DISEASE OFFICE/OUTPATIENT [facility] 60-74 MINUTES Bhavani Guadalupe, MULTI SPINDLE OPERATOR.[facility] [address] [place] [address] Referral ID Status Reason Start Date Expiration Date Visits Requested Visits Authorized [id number] Authorized PCP Requested Referral 04/29/2022 04/29/2023 1 1 History of Present Illness * George Perkins II, MD - 11/12/2016 12:57 PM EDT Formatting of this note may be different from the original. Chreise Esteban male 41 y.o. 11/12/16 Chief Complaint Facial Laceration HPI Facial Laceration Additional comments: right lower laceration to cheek Last edited by Clari Marcus LPN on 11/11/2016 8:39 AM. (History) Brief Review of HPI, Focused Exam, and Assessment and Plan Dictation on: 11/12/2016 12:59 PM by: GEORGE PERKINS [[id number]] Allergies: No known drug allergies Outpatient Prescriptions [...] George Perkins II, MD in this encounter* [place], Zoran Islas, DO - 12/09/2016 10:48 AM [...] be sent through Care Everywhere. * Headache (French) * Lupus (French) in this encounter Additional Source Comments (unrecognized sect ion and content) No Status Records FoundNo Status Records FoundNo Status Records FoundNo Status Records Found INFORMATION SOURCE (unrecogn ized section and content) DATE CREATED AUTHOR AUTHOR'S ORGANIZ ATION 10/05/2017 [facility] DATE CREATED AUTHOR AUTHOR'S ORGANIZ ATION 01/14/2019 [facility] DATE CREATED AUTHOR AUTHOR'S ORGANIZ ATION 01/25/2023 [facility] Reason for Visit (unrecogniz ed section and content) Status Reason Specialty Diagnoses / Procedures Referred By Contact Referred To Contact Closed Plastic Surgery Diagnoses Face lesion Laureano Alex CNP [address] [place] [phone] George Perkins II, MD [address] [place] [address] Reason Comments Skin Lesion Status Reason Specialty Diagnoses / Procedures Referred By Contact Referred To Contact Closed Specialty Services Required/Patient 's Best Interest Dermatology Diagnoses Atopic dermatitis, unspecified type George Perkins II, MD [address] [place] [address] [facility] [place] [id number] Reason Comments Headache post seizure check Reason Comments Patient Question Reason Comments Establish Care Reason Comments Social Work Services Deanna Olivas MSW - 05/04/2018 2:21 PM Per Simpson RN - 05/04/2018 1:15 PM EST ED Notes (unrecognized secti on and content) DISCHARGE PLAN PROGRESS NOTE Date: 05/04/2018 Time: 2:21 PM Patient Name: Cherise Esteban Date of : 1975 Sex: Male [facility] Disposition D/C Disposition: Home Community/Outpatient Referral: Community mental health, [facility], Other (Comment), Homeless ED SW met with [...] patient denies wanting to go to the [facility] or reach out to any agency for [...] or prosecute any alcohol or drug abuse patient.[facility] the event this information is protected by the Federal Confidentiality of Alcohol and Drug Abuse Patient Records regulations: The Federal rules restrict any use of the information to criminally investigate or prosecute any alcohol or drug abuse patient.[facility] the event this information is protected by the Federal Confidentiality of Alcohol and Drug Abuse Patient Records regulations: The Federal rules restrict any use of the information to criminally investigate or prosecute any alcohol or drug abuse patient.[facility] the event this information is protected by the Federal Confidentiality of Alcohol and Drug Abuse Patient Records regulations: The Federal rules restrict any use of the information to criminally investigate or prosecute any alcohol or drug abuse patient.[facility] Care Teams (unrecognized sec tion and content) Old Coin Dealer Relationship Specialty Start Date End Date iDanne Britton MD [address] [place], [place] [id number] PCP - General Internal Medicine 04/29/22 Old Coin Dealer Relationship Specialty Start Date End Date Dianne Britton MD [address] [place], [place] [id number] PCP - General Internal Medicine 04/29/22 FOR [...] BE BASED ON THE PRIMARY CLINICAL RECORDS. [employer] [facility]. provides no warranty or guarantee of the accuracy or completeness of information in this document.
--- NOTE | 2023-04-15 01:48 | EX.ED.VIS.PS ---
HPI HPI - Psych History of Present Illness Chief Complaint: Suicidal Informant: patient and police/frame aligner Narrative Narrative: Police pink slip this 48-year-old male here due to depression and suicidal thoughts. He states he was here 2 days ago, he complains of lupus and arthralgias all over that are chronic by he has no doctor to see nor medications to take and this makes it hard for him to keep a job, and the night of leaving the emergency department 2 days ago, he found out that his mom has bone cancer, it states on top of that he does not have a job or money cannot by his children presents for [place], he has 5 children from 3 different mothers and feels like a poor father, states he is very stressed and feeling depressed and does not want to live anymore and wants help. Police state that he was attempting to kill himself tonight by staying outside and freezing himself to . [facility] Medical History Arthritis GERD (gastroesophageal reflux disease) Lupus Ulcer Home Medications pantoprazole 40 mg tablet,delayed release (Protonix) 40 mg PO DAILY #30 tabs 01/14/22 [Rx Last Taken Unknown] duloxetine 40 mg capsule,delayed release mg PO 04/15/23 [History Last Taken Unknown] escitalopram oxalate 5 mg tablet mg 04/15/23 [History Last Taken Unknown] quetiapine 50 mg tablet mg 04/15/23 [History Last Taken Unknown] sucralfate 1 gram tablet 1 g PO DAILY 04/15/23 [History Last Taken Unknown] trazodone 50 mg tablet mg 04/15/23 [History Last Taken Unknown] Allergy/AdvReac Type Severity Reaction Status Date / Time No Known Allergies Allergy Verified 04/12/23 23:51 Family History Other Hypertension Social History household members: other housing: homeless Smoking Status: Light Smoker (<10/day) substance use type: does not use ROS ROS ED Constitutional Constitutional ED: Denies chills or fever(s) Eyes Eyes: Denies change in vision or diplopia ENT ENT ED: Denies rhinorrhea or sore throat Cardiovascular Cardiovascular: Denies chest pain or palpitations Respiratory/Chest Respiratory/Chest: Denies cough or dyspnea Gastrointestinal Gastrointestinal: Denies abdominal pain, diarrhea, nausea or vomiting Genitourinary Genitourinary ED: Denies dysuria or hematuria Musculoskeletal Musculoskeletal: Reports arthralgias; Denies back pain or neck pain Integumentary Reports rash; Denies abscess Neurologic Neurologic: Denies headache(s), paresthesias or weakness Psychiatric Psychiatric: Reports depression, suicidal ideation and suicidal thoughts; Denies homicidal ideation EXAM Physical Exam Const Vital Signs: 04/15/23 01:27 Temperature 97.5 F L Temperature Source Temporal Pulse Rate 75 Respiratory Rate 18 Blood Pressure 145/112 H Blood Pressure Mean 123 Pulse Ox 96 Oxygen Delivery Method Room Air Positive well nourished and well developed General Appearance ED: well developed and NAD HEENT Reports moist mucous membranes HEENT Narrative: Couple of nontender raised pallorous lesions on the right lateral face, patient states was biopsied and consistent with discoid normocephalic and atraumatic Eyes PERRL and EOMs intact bilaterally General Eye ED: Negative for scleral icterus Neck no lymphadenopathy and supple Resp normal respiratory effort and clear to auscultation bilaterally Cardio no murmurs Rate: regular rate Rhythm: regular rhythm GI non-tender and non-distended Auscultation: normoactive bowel sounds Palpation: soft Back/Spine no CVA tenderness and normal ROM Extremity normal to inspection General Extremety ED: Negative for edema General Extremity: Negative for edema Neuro oriented x3, CN's II-XII intact bilaterally, no sensory deficits noted and gait normal Sensorium / Orientation: alert Motor Exam: strength 5/5 throughout Psych mental status grossly normal, thought process normal, cooperative, activity/motor behavior normal and denies homicidal ideation Appearance: grossly normal Attitude: calm Activity / Motor Behavior: avoids eye contact Speech: soft Mood & Affect: depressed Thought Process: normal thought process Thought Content: suicidality Skin Lesions: no lesions Rashes: no rashes MDM MDM MDM Narrative Medical decision making narrative: I do not feel that he needs to have his basic labs repeated since they were all normal the day before yesterday, I did repeat his alcohol level and his drug screen which was positive a couple days ago for amphetamine and THC. With regards to his lupus, if he is placed psychiatrically it would be difficult to treat him as an outpatient so I offered an injection of Kenalog that should help this temporarily until he can follow-up with somebody, but he adamantly refuses because it involves a needle. His alcohol level is very low, and given this she is medically cleared. He has a drug screen from recently, will have crisis evaluate and he can urinate when he is able. Crisis evaluated in the ER and agrees that attempting to place patient psychiatrically is most appropriate at this time. History & Record Review Additional record(s) reviewed:: Prior ED visit and Prior labs (Labs normal less than 48 hours ago) Lab Data Attestation: I reviewed the patient's lab results. Labs: Laboratory Results - last 24 hr 04/15/23 02:08 Ethyl Alcohol 31.0 Discharge Plan Triage Chief Complaint: Suicidal ED Provider: Enrike Clark Dx/Rx/DC Orders Clinical Impression: Suicidal ideation, Depression, Arthralgia Prescriptions: No Action pantoprazole [Protonix] 40 mg tablet,delayed release (DR/EC) 40 mg PO DAILY Qty: 30 0RF sucralfate 1 gram tablet 1 g PO DAILY Patient Comments: TAKE 1 TABLET BY MOUTH TWICE DAILY for ulcers trazodone 50 mg tablet Patient Comments: TAKE 1 TABLET BY MOUTH AT BEDTIME NEEDED FOR INSOMNIA escitalopram oxalate 5 mg tablet Patient Comments: Take 1 tablet by mouth once daily. for depression quetiapine 50 mg tablet Patient Comments: TAKE 1 TABLET BY MOUTH AT BEDTIME for psychosis duloxetine 40 mg capsule,delayed release(DR/EC) PO Patient Comments: TAKE 1 CAPSULE BY MOUTH ONCE DAILY for depression Primary Care Provider: Care Physician,No Primary Referrals: Care Physician,No Primary [Primary Care Provider] - Disposition Disposition: Psychiatric Hospital or Unit
[2023-04-15 04:40] LABS: Amphetamine Urine VISTA POSITIVE (<1000 ng/mL); Barbiturate Urine VISTA NEGATIVE (< 200 ng/mL); Benzodiazepine Urine VISTA NEGATIVE (< 200 ng/mL); Cocaine Urine VISTA NEGATIVE (< 300 ng/mL); Ecstacy Urine VISTA POSITIVE (< 500 ng/mL); Methadone Urine VISTA NEGATIVE (< 300 ng/mL); PCP Urine VISTA NEGATIVE (< 25 ng/mL); THC Urine VISTA POSITIVE (< 50 ng/mL); Vista UDS pH Range 6
--- NOTE | 2023-04-15 04:42 | ED.RN ---
PENDING AT [facility]
[2023-04-15 05:18] VITALS: BP 151/97; PULSE 90; RESP 17; O2SAT 100
--- NOTE | 2023-04-15 05:59 | ED.RN ---
HALEY DECLINED DUE TO MEDICAL REASONS
--- NOTE | 2023-04-15 07:16 | ED.RN ---
[facility] called and will accept the pt but need a ekg and cpk along with other results faxed
[2023-04-15 07:50] LABS: CPK Total, Creatine Kinase 320 U/L (39-308)
--- NOTE | 2023-04-15 09:01 | ED.RN ---
ATTEMPTED TO CALL [facility] FOR REPORT, NURSE NOT AVAILABLE SO INFO GIVEN FOR THEM TO CALL BACK
[2023-04-15 10:01] VITALS: BP 139/76; PULSE 81; RESP 16; TEMP 36.4; O2SAT 99
[2023-04-15 10:08] VITALS: BP 139/76; PULSE 82; RESP 16; O2SAT 99
== END 2023-04-15 10:55 ==
PROVIDERS: Emergency Provider Emergency Medicine; Visit Provider Emergency Medicine
DX: R45.851 Suicidal ideations (principal); F17.200 Nicotine dependence, unspecified, uncomplicated; F32.A Depression, unspecified; Z59.00 Homelessness unspecified; M25.50 Pain in unspecified joint
CPT/HCPCS: 36415; 80307; 80320; 82550; 87811; 93005; 99283; G0480

== ENCOUNTER 2023-07-19 14:41 | Emergency (ER) | payer MEDICAID, SELFPAY ==
[2023-07-19 14:41] VITALS: BP 103/79; PULSE 77; RESP 14; TEMP 36.4; O2SAT 100; BMI 22.5
[2023-07-19 15:31] LABS: Absolute Lymphocyte Count 2.15 X10^3/uL (0.83-4.51); Absolute Neutrophil Count 2.8 X10^3/uL (2.0-7.7); Basophil# 0.04 X10^3/uL; Basophil% 0.7 % (0-1); Eosinophil# 0.11 X10^3/uL; Hematocrit 40.7 % (40-54); Lymphocyte # 2.15 X10^3/ul (0.83-4.51); Lymphocyte % 38.7 % (19-41); Mean Corp Hgb Conc 31.9 g/dL (32-36); Mean Corpuscular Hgb 28.9 pg (27.0-32.0); Mean Corpuscular Volume 90.4 fL (80-94); Mean Platelet Vol. 8.6 fl (6.2-12.0); Monocyte# 0.44 X10^3/uL; Monocyte% 7.9 % (0-10); NRBC Flagged by Analyzer 0 % (0-5); Neutrophil # 2.81 X10^3/uL (2.7-7.7); Neutrophil % 50.5 % (47-70); Platelet Count 234 K/mm3 (150-450); RBC Distribution Width SD 42.7 fl (35.1-43.9); White Blood Count 5.6 K/mm3 (4.4-11.0)
--- NOTE | 2023-07-19 15:35 | ED.VIS.GI ---
HPI HPI - GI History of Present Illness Chief Complaint: Abd Pain Narrative Narrative: 48-year-old male presenting with abdominal pain which she describes as mostly epigastric. He states he has a history of acid reflux and is describing dyspepsia. Previously was on Protonix 40 mg p.o. daily but states that he had to stop this 3 weeks ago as he ran out. He still has some order planner fate which he takes. He has been able to hold down some fluids but not much food. Previously he was supposed to be seen at [facility] again however he had to miss the appointment due to some personal issues and today went into be seen and was sent to the emergency room. Patient does admit to some nausea and vomiting but is able to hold down some food and fluids. He has no diarrhea or constipation. He smokes marijuana occasionally but not chronically. He denies alcohol use. No history of liver or gallbladder disease. Denies any surgical history in his abdomen. He has not had any fevers or chills. He does admit that hot showers on his back to make him feel better. [facility] Medical History Arthritis GERD (gastroesophageal reflux disease) Lupus Ulcer Home Medications pantoprazole 40 mg tablet,delayed release (Protonix) 40 mg PO DAILY #30 tabs 01/14/22 [Rx Last Taken Unknown] duloxetine 40 mg capsule,delayed release mg PO 04/15/23 [History Last Taken Unknown] escitalopram oxalate 5 mg tablet mg 04/15/23 [History Last Taken Unknown] quetiapine 50 mg tablet mg 04/15/23 [History Last Taken Unknown] sucralfate 1 gram tablet 1 g PO DAILY 04/15/23 [History Last Taken Unknown] trazodone 50 mg tablet mg 04/15/23 [History Last Taken Unknown] ondansetron 4 mg disintegrating tablet 4 mg PO Q8H PRN PRN Nausea #14 tabs 07/19/23 [Rx Last Taken Unknown] pantoprazole 40 mg granules delayed-release for susp in packet (Protonix) 40 mg PO DAILY #60 ea 07/19/23 [Rx Last Taken Unknown] sucralfate 100 mg/mL oral suspension (Carafate) 10 ml PO BID PRN epigastric pain #400 mL 07/19/23 [Rx Last Taken Unknown] Allergy/AdvReac Type Severity Reaction Status Date / Time No Known Allergies Allergy Verified 07/19/23 14:44 Family History Other Hypertension Social History household members: other housing: homeless Smoking Status: Light Smoker (<10/day) substance use type: does not use ROS ROS ED Constitutional Constitutional ED: Denies chills, fever(s) or sweats Eyes Eyes: Denies blurry vision or change in vision ENT ENT ED: Denies ear pain or sore throat Cardiovascular Cardiovascular: Denies chest pain, palpitations or racing heartbeat Respiratory/Chest Respiratory/Chest: Denies cough, dyspnea or sputum Gastrointestinal Gastrointestinal: Reports abdominal pain, nausea and vomiting; Denies constipation or diarrhea Genitourinary Genitourinary ED: Denies dysuria, hematuria or urinary frequency Musculoskeletal Musculoskeletal: Denies arthralgias, myalgias or neck pain Integumentary Denies abscess, Abrasions or rash Neurologic Neurologic: Denies headache(s), paresthesias or weakness Psychiatric Psychiatric: Denies anxiety, depression, suicidal ideation or suicidal thoughts Endocrine Endocrinology: Denies polydipsia or polyuria EXAM Physical Exam Const Vital Signs: 07/19/23 14:41 07/19/23 16:41 Temperature 97.6 F L 97.2 F L Temperature Source Temporal Temporal Pulse Rate 77 70 Respiratory Rate 14 16 Blood Pressure 103/79 124/66 H Blood Pressure Mean 87 85 Pulse Ox 100 98 Oxygen Delivery Method Room Air Room Air Positive well nourished General Appearance ED: NAD; Negative for pallor HEENT Reports TM's clear and moist mucous membranes normocephalic Tympanic Membrane ED: Yes TM's clear Eyes PERRL and EOMs intact bilaterally General Eye ED: Negative for pale conjunctiva Resp normal respiratory effort Cardio regular rate and regular rhythm GI Palpation: tender epigastric Neuro CN's II-XII intact bilaterally Sensorium / Orientation: alert Motor Exam: strength 5/5 throughout Psych mental status grossly normal Skin General Skin Exam: Negative for jaundice or pallor MDM MDM MDM Narrative Medical decision making narrative: 48-year-old male with history of GERD presenting with epigastric pain. Differential includes gastritis, peptic ulcer disease, pancreatitis, cholecystitis, colitis, cyclic vomiting syndrome, cannabinoid hyperemesis syndrome, dehydration, anemia, electrolyte abnormalities. Patient was treated as cyclic vomiting and he is given IV fluids. CBC will be obtained to assess white blood cell count, hemoglobin, platelets. BMP to assess renal function, electrolytes, glucose. Liver enzymes to assess for liver function. Lipase to assess for pancreatitis. Will obtain CT of the abdomen pelvis with IV contrast as he has not had any imaging. Patient will be reevaluated. Vital signs currently stable and he is afebrile. Patient CBC shows normal blood cell count of 5.6. Hemoglobin 13.0. Platelets 234. Renal function and electrolytes within normal limits. LFTs are normal. Lipase is normal. Urinalysis is negative. On reevaluation patient is feeling much better. CT of the abdomen pelvis was discussed with him and is negative. This does show constipation. He is counseled this. Impression: 1. Constipation 2. Abdominal pain 3. Gastritis 3. Nausea/vomiting Lab Data Attestation: I reviewed the patient's lab results. Labs: Laboratory Results - last 24 hr 07/19/23 07/19/23 15:20 15:40 WBC 5.6 RBC 4.50 L Hgb 13.0 Hct 40.7 MCV 90.4 MCH 28.9 MCHC 31.9 L RDW Std Deviation 42.7 RDW Coeff of Tristen 13.0 Plt Count 234 MPV 8.6 Immature Gran % (Auto) 0.200 Neut % (Auto) 50.5 Lymph % (Auto) 38.7 [place] % (Auto) 7.9 Eos % (Auto) 2.0 Baso % (Auto) 0.7 Absolute Neuts (auto) 2.8 Absolute Lymphs (auto) 2.15 Nucleated RBC % 0 Sodium 138 Potassium 4.1 Chloride 106 Carbon Dioxide 30.0 Anion Gap 2 L BUN 9 Creatinine 0.87 Estim Creat Clear Calc 123.33 Est GFR (MDRD) Af Amer 120 Est GFR (MDRD) Non-Af 99 BUN/Creatinine Ratio 10.3 Glucose 98 Calcium 9.0 Total Bilirubin 0.30 AST 10 L ALT 16 Alkaline Phosphatase 71 Total Protein 7.1 Albumin 3.4 Globulin 3.7 Albumin/Globulin Ratio 0.9 Lipase 19 Urine Color Yellow Urine Clarity Clear Urine pH 7.0 Ur Specific [place] 1.010 Urine Protein 30 H Urine Glucose (UA) Normal Urine Ketones 5 H Urine Occult Blood Negative Urine Nitrite Negative Urine Bilirubin Negative Urine Urobilinogen 1 H Ur Leukocyte Esterase 25 H Urine RBC 0 SEEN Urine WBC 0-5 SEEN Ur Squamous Epith Cells 0 SEEN Urine Bacteria 1+ Urine Mucus RARE Radiography Diagnostic Testing: Clinical Impression(s) from Imaging Studies Abdomen/Pelvis CT 07/19/23 16:08 IMPRESSION: Diffuse colonic fecal retention. Electronically Signed: Miguel Duran DO at 17:09 EDT Reading Location ID and State: [facility] / [place] Tel [phone], Service support , Discharge Plan Triage Chief Complaint: Abd Pain ED Provider: Aamir Mena Dx/Rx/DC Orders Instructions: ED Gastritis (Adult) Prescriptions: New pantoprazole [Protonix] [address] for susp in packet 40 mg PO DAILY Qty: 60 0RF ondansetron 4 mg tablet,disintegrating 4 mg PO Q8H PRN PRN (Reason: Nausea) Qty: 14 0RF sucralfate [Carafate] 100 mg/mL suspension 10 ml PO BID PRN (Reason: epigastric pain) Qty: 400 0RF No Action pantoprazole [Protonix] 40 mg tablet,delayed release (DR/EC) 40 mg PO DAILY Qty: 30 0RF sucralfate 1 gram tablet 1 g PO DAILY Patient Comments: TAKE 1 TABLET BY MOUTH TWICE DAILY for ulcers trazodone 50 mg tablet Patient Comments: TAKE 1 TABLET BY MOUTH AT BEDTIME NEEDED FOR INSOMNIA escitalopram oxalate 5 mg tablet Patient Comments: Take 1 tablet by mouth once daily. for depression quetiapine 50 mg tablet Patient Comments: TAKE 1 TABLET BY MOUTH AT BEDTIME for psychosis duloxetine 40 mg capsule,delayed release(DR/EC) PO Patient Comments: TAKE 1 CAPSULE BY MOUTH ONCE DAILY for depression Primary Care Provider: JESSICA HAZEL Referrals: Friend,DO Mitchell [Med Staff - Active Staff] - 3-5 Days Care Physician,No Primary [Non-Staff] - Disposition Disposition: Home, Self Care
[2023-07-19] MEDS: 0.9% Normal Saline (1000mL) 1,000 ML 999 ML IV (15:44)
[2023-07-19] MEDS: Ondansetron 4 MG/2 ML Vial IV (15:44)
[2023-07-19] MEDS: LORazepam 2 MG/ML Syringe 0.5 MG IV (15:45)
[2023-07-19 15:49] LABS: Red Blood Cells-Urine 0 SEEN /hpf (0-5); Squamous Epithelial Cells - UA 0 SEEN /hpf (0-5)
[2023-07-19 15:50] LABS: Color, Urine Yellow (Yellow); Glucose, Dipstick Normal (Normal); Ketone-Dipstick 5 mg/dl (Negative); Leukocyte Esterase-Dipstick 25 /ul (Negative); Nitrite-Dipstick Negative (Negative); Occult Blood-Urine Negative /ul (Negative); Protein-Dipstick 30 mg/dl (Negative); Urine Bilirubin Dipstick Negative (Negative); Urine Clarity Clear (Clear); Urine Urobilinogen 1 mg/dl (Normal)
[2023-07-19 15:50] LABS: ALB/GLOB Ratio 0.9 RATIO (0.9-2.4); AST(SGOT) 10 U/L (15-37); Alanine Aminotransfer ALT/SGPT 16 U/L (16-61); Albumin, Serum 3.4 g/dL (3.2-5.0); Alkaline Phosphatase 71 U/L (45-117); Anion Gap 2 (5-15); BUN 9 mg/dL (7-18); BUN/Creat Ratio 10.3 RATIO (10-20); Chloride 106 mmol/L (98-107); Creatinine, Serum 0.87 mg/dL (0.70-1.30); EST Glomerular Filtration Rate 99 mL/min (>60); Est Glom Filt Rate - Afr Amer 120 mL/min (>60); Estimated Creatinine Clearance 123.33 ml/min; Globulin 3.7 g/dL (2.2-4.2); Glucose 98 mg/dL (74-106); Lipase 19 U/L (13-75); Potassium 4.1 mmol/L (3.5-5.1); Protein, Total 7.1 g/dL (6.4-8.2); Sodium Level 138 mmol/L (136-145)
[2023-07-19] MEDS: Famotidine 200 MG/20 ML MDV 20 MG in 0.9% Normal Saline (Pres. free 8 ML 300 MG IV (15:53)
[2023-07-19 15:59] LABS: Bacteria 1+ /hpf (None Seen); Mucous, Urine RARE /hpf (<or=2+); White Blood Cells 0-5 SEEN /hpf (0-5)
--- NOTE | 2023-07-19 16:08 | CT_ITS ---
STUDY: CT ABDOMEN AND PELVIS WITH CONTRAST REASON FOR EXAM: Male, 48 years old. Abdominal pain RADIATION DOSAGE (If Supplied By Facility): CTDIvol = ( 17.32 ) mGy, DLP = ( 627.67 ) mGycm TECHNIQUE: Transaxial images were obtained from the dome of the diaphragm to the symphysis pubis without oral contrast. 100mL Isovue 370 was administered. Sagittal and coronal images were reconstructed. Individualized dose optimization techniques were used for this CT. COMPARISON: None. FINDINGS: The visualized lung bases are unremarkable. The visualized portions of the heart are within normal limits. Normal liver. Normal gallbladder and extrahepatic biliary system. Normal spleen. Normal pancreas. Normal bilateral adrenal glands. Normal right kidney. Normal left kidney. Normal visualized stomach. Normal small intestine. Fecal retention in the colon. The appendix is visualized and appears normal. Normal abdominal aorta. Normal inferior vena cava. Normal retroperitoneum. Normal urinary bladder. Normal abdominal wall. Normal osseous structures. CT/Abdomen/Pelvis W IV Cont ONLY IMPRESSION: Diffuse colonic fecal retention. Electronically Signed: Miguel Duran DO at 17:09 EDT Reading Location ID and State: [facility] / [place] Tel [phone], Service support ,
[2023-07-19 16:41] VITALS: BP 124/66; PULSE 70; RESP 16; TEMP 36.2; O2SAT 98
[2023-07-19] MEDS: Mag Hydrox/Al Hydrox/Simeth 30 ML UDC PO (18:16)
[2023-07-19 18:19] VITALS: BP 117/64; PULSE 73; RESP 15; TEMP 36.2; O2SAT 99
== END 2023-07-19 18:26 | disposition home or self-care (01) ==
PROVIDERS: Emergency Provider Student in an Organized Health Care Education/Training Program; Visit Provider Student in an Organized Health Care Education/Training Program
DX: K59.00 Constipation, unspecified (principal); K29.70 Gastritis, unspecified, without bleeding; F17.200 Nicotine dependence, unspecified, uncomplicated; Z59.00 Homelessness unspecified; R10.9 Unspecified abdominal pain; R11.2 Nausea with vomiting, unspecified; K21.9 Gastro-esophageal reflux disease without esophagitis; F12.90 Cannabis use, unspecified, uncomplicated
CPT/HCPCS: 74177; 80053; 81001; 83690; 85025; 99284; J7030; Q9967; J2405; J3490

== ENCOUNTER 2023-12-05 21:06 | Emergency (ER) | payer MEDICAID, SELFPAY ==
[2023-12-05 21:07] VITALS: BP 106/73; PULSE 99; RESP 18; TEMP 36.8; O2SAT 98; BMI 20.6
[2023-12-05] MEDS: 0.9% Normal Saline (1000mL) 1,000 ML 999 ML IV (22:28)
[2023-12-05] MEDS: Ondansetron 4 MG/2 ML Vial IV (22:28)
[2023-12-05] MEDS: Mag /Aluminum/Simeth WCH UDC 30 ML ORAL.SUSP PO (22:29)
[2023-12-05] MEDS: Lidocaine 2% Viscous15 ML UDC 15 ML PO (22:29)
[2023-12-05 22:36] LABS: Absolute Lymphocyte Count 1.45 X10^3/uL (0.83-4.51); Absolute Neutrophil Count 2.3 X10^3/uL (2.0-7.7); Basophil# 0.02 X10^3/uL; Basophil% 0.5 % (0-1); Eosinophils% 2.4 % (0-5); Hematocrit 34.6 % (40-54); Hemoglobin 11.2 g/dL (13.0-16.5); Lymphocyte # 1.45 X10^3/ul (0.83-4.51); Lymphocyte % 34.2 % (19-41); Mean Corp Hgb Conc 32.4 g/dL (32-36); Mean Corpuscular Hgb 29.2 pg (27.0-32.0); Mean Corpuscular Volume 90.1 fL (80-94); Monocyte# 0.38 X10^3/uL; NRBC Flagged by Analyzer 0 % (0-5); Neutrophil # 2.28 X10^3/uL (2.7-7.7); Neutrophil % 53.7 % (47-70); Platelet Count 211 K/mm3 (150-450); RBC Distribution Width CV 13.3 % (11.6-14.6); RBC Distribution Width SD 43.8 fl (35.1-43.9); Red Blood Count 3.84 M/mm3 (4.6-6.2); White Blood Count 4.2 K/mm3 (4.4-11.0)
[2023-12-05 22:59] LABS: AST(SGOT) 16 U/L (15-37); Alanine Aminotransfer ALT/SGPT 23 U/L (16-61); Alkaline Phosphatase 75 U/L (45-117); Anion Gap 3 (5-15); BUN 11 mg/dL (7-18); BUN/Creat Ratio 11.7 RATIO (10-20); Bilirubin, Direct 0.07 mg/dL (0.00-0.30); Calcium,Total 8.8 mg/dL (8.5-10.1); Chloride 107 mmol/L (98-107); Creatinine, Serum 0.94 mg/dL (0.70-1.30); EST Glomerular Filtration Rate 90 mL/min (>60); Est Glom Filt Rate - Afr Amer 109 mL/min (>60); Estimated Creatinine Clearance 104.39 ml/min; Globulin 3.5 g/dL (2.2-4.2); Glucose 107 mg/dL (74-106); Lipase 15 U/L (13-75); Potassium 4.7 mmol/L (3.5-5.1); Protein, Total 6.5 g/dL (6.4-8.2); Sodium Level 139 mmol/L (136-145)
[2023-12-05 23:21] VITALS: PULSE 97; RESP 16; O2SAT 100
--- NOTE | 2023-12-06 00:19 | EX.ED.DYSGE1 ---
HPI History of Present Illness Chief Complaint: General Illness Informant: patient Narrative Narrative: Patient is a 48-year-old male with past medical history of SLE as well as GERD. He states that he has not had a family doctor for multiple months and that secondary to this he has not been on his standard medications. He also reports that he has felt generally weak and tired and unwell but then admits that he also has not eaten in a while. He states he was overall just feeling unwell and secondary to this comes in for evaluation [facility] Medical History Arthritis Ulcer GERD (gastroesophageal reflux disease) Lupus Home Medications ?Medication ?Instructions ?Recorded ?Last Taken ?Type pantoprazole 40 mg tablet,delayed 40 mg PO DAILY #30 tabs 01/14/22 Unknown Rx release (Protonix) duloxetine 40 mg capsule,delayed mg PO 04/15/23 Unknown History release escitalopram oxalate 5 mg tablet mg 04/15/23 Unknown History quetiapine 50 mg tablet mg 04/15/23 Unknown History sucralfate 1 gram tablet 1 g PO DAILY 04/15/23 Unknown History trazodone 50 mg tablet mg 04/15/23 Unknown History ondansetron 4 mg disintegrating 4 mg PO Q8H PRN PRN Nausea #14 tabs 07/19/23 Unknown Rx tablet pantoprazole 40 mg granules 40 mg PO DAILY #60 ea 07/19/23 Unknown Rx delayed-release for susp in packet (Protonix) sucralfate 100 mg/mL oral 10 ml PO BID PRN epigastric pain 07/19/23 Unknown Rx suspension (Carafate) #400 mL Allergy/AdvReac Type Severity Reaction Status Date / Time No Known Allergies Allergy Verified 07/19/23 14:44 Family History Other Hypertension Social History household members: other housing: homeless Smoking Status: Light Smoker (<10/day) substance use type: does not use ROS ROS ED Constitutional Constitutional ED: Denies chills or fever(s) Eyes Eyes: Denies blurry vision or change in vision ENT ENT ED: Denies sore throat Cardiovascular Cardiovascular: Denies chest pain Respiratory/Chest Respiratory/Chest: Denies cough or dyspnea Gastrointestinal Gastrointestinal: Reports abdominal pain; Denies diarrhea, nausea or vomiting Genitourinary Genitourinary ED: Denies dysuria or hematuria Musculoskeletal Musculoskeletal: Denies myalgias Integumentary Denies rash Neurologic Neurologic: Reports weakness; Denies headache(s) or paresthesias Psychiatric Psychiatric: Denies suicidal ideation or suicidal thoughts Hematologic/Lymphatic Hematologic/Lymphatic: Denies easy bleeding or easy bruising EXAM Physical Exam Const Vital Signs: 12/05/23 21:07 12/05/23 22:06 12/05/23 23:21 Temperature 98.2 F Temperature Source Oral Pulse Rate 99 97 Respiratory Rate 18 16 Respiratory Effort Normal Respiratory Pattern Normal Blood Pressure 106/73 Blood Pressure Mean 84 Pulse Ox 98 100 Oxygen Delivery Method Room Air Room Air 12/06/23 00:41 Temperature 98.0 F Temperature Source Pulse Rate 78 Respiratory Rate 18 Respiratory Effort Respiratory Pattern Blood Pressure 136/75 H Blood Pressure Mean 95 Pulse Ox 98 Oxygen Delivery Method Positive well nourished and well developed General Appearance ED: well developed; Negative for pallor HEENT Reports dry mucous membranes HEENT Narrative: No tongue or lip swelling no oral lesions no airway edema or compromise No secondary findings in the posterior pharynx to suggest infection Mouth ED: Yes dry mucous membranes Mouth: dry mucous membranes Eyes PERRL and EOMs intact bilaterally General Eye ED: Negative for scleral icterus Neck supple Neck Narrative: No nuchal rigidity or meningeal signs noted Chest Wall palpation of chest normal Resp normal respiratory effort and clear to auscultation bilaterally Resp Narrative: Breath sounds are diminished throughout but overall clear to auscultation without signs of respiratory distress Cardio regular rate and regular rhythm Rate: other Other Details: Radial and carotid pulses are equal and symmetric GI non-distended and no masses GI Narrative: Abdomen is soft and nondistended with normal active bowel sounds. Patient has pain with palpation in the midepigastric region without voluntary guarding or rigidity or pulsatile mass Auscultation: normoactive bowel sounds Palpation: soft Extremity normal to inspection Neuro oriented x3, CN's II-XII intact bilaterally and no sensory deficits noted Neuro Narrative: Patient endorses periods of confusion but in the ER he is awake and alert to person place and time. Cranial nerves II through XII are grossly intact without focal neurologic deficit No pronator drift no dysmetria no truncal ataxia NIH stroke scale score of 0 GCS of 15 Sensorium / Orientation: alert Motor Exam: strength 5/5 throughout Psych Psych Narrative: Patient has a flat affect Skin no rashes or lesions noted and no wounds General Skin Exam: Negative for jaundice or pallor MDM MDM MDM Narrative Medical decision making narrative: Patient arrived to the ER with stable vitals. He had multiple complaints but overall his abdomen is soft and nonsurgical and he has no signs of respiratory distress or obvious infection. Based on his history of lupus and feeling unwell there is concern for lupus induced acute kidney injury and as he has not been eating there is concern for electrolyte abnormality. With pain in the midepigastric region there is concern for acute pancreatitis versus biliary colic or acute cholecystitis. Therefore elected to perform basic laboratory studies. Labs revealed no clinically significant findings and after receiving IV hydration and a GI cocktail patient did report feeling better. The patient was given food and tolerated this without difficulty either. Therefore this time with stable vitals and negative workup I do not feel there is need for further evaluation in the hospital and as he is not have homicidal or suicidal ideation there is no need for a psychiatric evaluation and he is otherwise safe for discharge History & Record Review Discussion w/independent historian: Patient Lab Data Attestation: I reviewed the patient's lab results. Labs: Laboratory Results - last 24 hr 12/05/23 22:28 WBC 4.2 L RBC 3.84 L Hgb 11.2 L Hct 34.6 L MCV 90.1 MCH 29.2 MCHC 32.4 RDW Std Deviation 43.8 RDW Coeff of Tristen 13.3 Plt Count 211 MPV 9.0 Immature Gran % (Auto) 0.200 Neut % (Auto) 53.7 Lymph % (Auto) 34.2 [place] % (Auto) 9.0 Eos % (Auto) 2.4 Baso % (Auto) 0.5 Absolute Neuts (auto) 2.3 Absolute Lymphs (auto) 1.45 Nucleated RBC % 0 Sodium 139 Potassium 4.7 Chloride 107 Carbon Dioxide 29.0 Anion Gap 3 L BUN 11 Creatinine 0.94 Estim Creat Clear Calc 104.39 Est GFR (MDRD) Af Amer 109 Est GFR (MDRD) Non-Af 90 BUN/Creatinine Ratio 11.7 Glucose 107 H Calcium 8.8 Magnesium 2.0 Total Bilirubin 0.30 Direct Bilirubin 0.07 AST 16 ALT 23 Alkaline Phosphatase 75 Total Protein 6.5 Albumin 3.0 L Globulin 3.5 Lipase 15 Discharge Plan Triage Chief Complaint: General Illness ED Provider: Anthony Wood Dx/Rx/DC Orders Clinical Impression: Nonspecific abdominal pain, Lupus (systemic lupus erythematosus), GERD (gastroesophageal reflux disease) Instructions: Abdominal Pain, ED Systemic Lupus Erythematosis Prescriptions: No Action pantoprazole [Protonix] 40 mg tablet,delayed release (DR/EC) 40 mg PO DAILY Qty: 30 0RF sucralfate 1 gram tablet 1 g PO DAILY Patient Comments: TAKE 1 TABLET BY MOUTH TWICE DAILY for ulcers trazodone 50 mg tablet Patient Comments: TAKE 1 TABLET BY MOUTH AT BEDTIME NEEDED FOR INSOMNIA escitalopram oxalate 5 mg tablet Patient Comments: Take 1 tablet by mouth once daily. for depression quetiapine 50 mg tablet Patient Comments: TAKE 1 TABLET BY MOUTH AT BEDTIME for psychosis duloxetine 40 mg capsule,delayed release(DR/EC) PO Patient Comments: TAKE 1 CAPSULE BY MOUTH ONCE DAILY for depression pantoprazole [Protonix] [address] for susp in packet 40 mg PO DAILY Qty: 60 0RF ondansetron 4 mg tablet,disintegrating 4 mg PO Q8H PRN PRN (Reason: Nausea) Qty: 14 0RF sucralfate [Carafate] 100 mg/mL suspension 10 ml PO BID PRN (Reason: epigastric pain) Qty: 400 0RF Primary Care Provider: JESSICA HAZEL Referrals: JESSICA HAZEL [Other] Print Language: Citizen Of [place] Disposition Disposition: Home, Self Care Discharge Date/Time: 12/06/23 00:43
[2023-12-06 00:41] VITALS: BP 136/75; PULSE 78; RESP 18; TEMP 36.7; O2SAT 98
== END 2023-12-06 00:43 | disposition home or self-care (01) ==
PROVIDERS: Emergency Provider Emergency Medicine; Visit Provider Emergency Medicine
DX: R10.9 Unspecified abdominal pain (principal); M32.9 Systemic lupus erythematosus, unspecified; K21.9 Gastro-esophageal reflux disease without esophagitis; F17.200 Nicotine dependence, unspecified, uncomplicated; Z59.00 Homelessness unspecified; Z79.899 Other long term (current) drug therapy
CPT/HCPCS: 80048; 80076; 83690; 83735; 85025; 96361; 96374; 99284; J7030; A4216; J2405

== ENCOUNTER 2023-12-08 01:24 | Emergency (ER) | payer MEDICAID, SELFPAY ==
[2023-12-08 01:25] VITALS: BP 149/93; PULSE 109; RESP 18; TEMP 36.9; O2SAT 98
--- NOTE | 2023-12-08 01:39 | EKG12_ITS ---
Test Reason : DYSRHYTHMIA Blood Pressure : / mmHG Vent. Rate : 095 BPM Atrial Rate : 095 BPM P-R Int : 154 ms QRS Dur : 082 ms QT Int : 366 ms P-R-T Axes : 069 075 067 degrees QTc Int : 459 ms Normal sinus rhythm Minimal voltage criteria for LVH, may be normal variant ( Sokolow-Peck ) Borderline ECG Confirmed by Monroe Chang ([id number]), slot editor DUSTY KING ([id number]) on 12/08/2023 2:07:07 PM Referred By: Confirmed By:Monroe Chang
--- NOTE | 2023-12-08 01:40 | EDS_ITS ---
HPI History of Present Illness Chief Complaint: Lower Extremity Injury Detail of Chief Complaint: Right leg pain and dizziness Informant: patient Narrative Narrative: Patient presents to the emergency department via EMS with complaint of right leg pain. Patient states that he was being chased by 30 people trying to take his wallet tonight and so he ran to the police station to get some help. Subsequently developed pain in his right foot and right leg. Patient brought to ER for evaluation. He also complains of feeling lightheaded and dizzy after running. Complains of chronic abdominal pain. He has history of lupus. Patient is homeless. Denies significant chest pain. [place] somewhat short of breath after running [facility] Medical History Arthritis Ulcer GERD (gastroesophageal reflux disease) Lupus Home Medications ?Medication ?Instructions ?Recorded ?Last Taken ?Type pantoprazole 40 mg tablet,delayed 40 mg PO DAILY #30 tabs 01/14/22 Unknown Rx release (Protonix) duloxetine 40 mg capsule,delayed mg PO 04/15/23 Unknown History release escitalopram oxalate 5 mg tablet mg 04/15/23 Unknown History quetiapine 50 mg tablet mg 04/15/23 Unknown History sucralfate 1 gram tablet 1 g PO DAILY 04/15/23 Unknown History trazodone 50 mg tablet mg 04/15/23 Unknown History ondansetron 4 mg disintegrating 4 mg PO Q8H PRN PRN Nausea #14 tabs 07/19/23 Unknown Rx tablet pantoprazole 40 mg granules 40 mg PO DAILY #60 ea 07/19/23 Unknown Rx delayed-release for susp in packet (Protonix) sucralfate 100 mg/mL oral 10 ml PO BID PRN epigastric pain 07/19/23 Unknown Rx suspension (Carafate) #400 mL Allergy/AdvReac Type Severity Reaction Status Date / Time No Known Allergies Allergy Verified 12/08/23 01:25 Family History Other Hypertension Social History household members: other housing: homeless Smoking Status: Light Smoker (<10/day) substance use type: does not use ROS ROS ED Review of Systems ROS Unobtainable: other Constitutional Constitutional ED: Reports lethargy; Denies chills, fever(s), sweats or weight loss Eyes Eyes: Denies blurry vision, change in vision or diplopia ENT ENT ED: Denies rhinorrhea or sore throat Cardiovascular Cardiovascular: Denies chest pain, orthopnea or racing heartbeat Respiratory/Chest Respiratory/Chest: Reports dyspnea and dyspnea on exertion; Denies cough, orthopnea or sputum Gastrointestinal Gastrointestinal: Reports abdominal pain; Denies diarrhea, nausea or vomiting Genitourinary Genitourinary ED: Denies dysuria, hematuria or urinary frequency Musculoskeletal Musculoskeletal: Reports other Details: Right foot and leg pain ; Denies arthralgias, back pain, myalgias or neck pain Integumentary Denies abscess, Abrasions or rash Neurologic Neurologic: Denies headache(s) or weakness Psychiatric Psychiatric: Denies anxiety, depression or suicidal thoughts Endocrine Endocrinology: Denies polydipsia, polyphagia or polyuria Hematologic/Lymphatic Hematologic/Lymphatic: Denies easy bleeding, easy bruising or lymphadenopathy Allergic/Immunologic Allergic/Immunologic ED: Denies mouth swelling, tongue swelling or urticaria EXAM Physical Exam Const Vital Signs: 12/08/23 01:25 Temperature 98.5 F Temperature Source Oral Pulse Rate 109 H Respiratory Rate 18 Blood Pressure 149/93 H Blood Pressure Mean 111 Pulse Ox 98 Oxygen Delivery Method Room Air Positive well nourished and well developed General Appearance ED: well developed and NAD HEENT Reports TM's clear and moist mucous membranes normocephalic and atraumatic; Negative for trauma or tenderness Tympanic Membrane ED: Yes TM's clear Eyes PERRL and EOMs intact bilaterally General Eye ED: Negative for pale conjunctiva or scleral icterus Neck no lymphadenopathy, supple and no JVD General: Negative for tenderness Chest Wall inspection of chest normal and palpation of chest normal Chest: Negative for tenderness Resp normal respiratory effort and clear to auscultation bilaterally Effort and Inspection: Negative for respiratory distress or pain with movement Auscultation: Negative for rhonchi, wheezes or diminished lung sounds Cardio regular rate, regular rhythm, S1 normal heart sound, S2 normal heart sound and no murmurs Peripheral Pulses: pulses 2+ throughout GI normal to inspection, nondistended, normoactive bowel sounds, soft to palpation, non-distended and no masses GI Narrative: Mild discomfort in the epigastric region. There is no rebound, rigidity, or peritoneal signs. No mass palpated. Back/Spine no CVA tenderness and no thoracic nor lumbar tenderness Extremity Extremity Narrative: Right lower extremity-no external evidence of trauma. He ambulated in the department. Evaluation of his right foot reveals some calluses to the bottom of the foot with a healing blood blister to the pad of the great toe. No cellulitic changes. Negative Homans' sign. No edema of the leg noted and there were no ropes or cords palpated General Extremety ED: Negative for edema General Extremity: Negative for edema Neuro oriented x3, CN's II-XII intact bilaterally, no sensory deficits noted and gait normal Sensorium / Orientation: awake, alert, oriented to person, oriented to place and oriented to time Motor Exam: strength 5/5 throughout and strength abnormal Psych mental status grossly normal Skin no rashes or lesions noted and no wounds MDM MDM MDM Narrative Medical decision making narrative: Patient presents to the emergency department via EMS with multiple vague complaints of pain in his right leg. Also complained of some dizziness. Patient states that he was being chased by 30 people try to take his wallet. He was seen in the emergency department on the for vague complaints and had lab work that was unremarkable. Initially did order basic labs as well as an EKG and x-rays of his right foot. Patient refused x-rays. He is refusing blood work. I did give him a GI cocktail which he states helped and he feels significantly improved. He states his dizziness is resolved. Clinically he looks well. Recommended he follow-up with primary care physician within next 3 to 5 days. EKG Initial EKG: Attestation: I personally reviewed and interpreted this EKG as follows: Comments: Sinus rhythm with ventricular rate of 95 bpm with LVH Discharge Plan Triage Chief Complaint: Lower Extremity Injury ED Provider: Nehemias Mcbride Dx/Rx/DC Orders Clinical Impression: Dyspnea, GERD (gastroesophageal reflux disease), Pain in right leg, Dizziness Instructions: ED Dizziness, Uncertain Cause, ED Dyspnea, ED GERD (Adult), ED Pain, Acute, Uncertain Cause Prescriptions: No Action pantoprazole [Protonix] 40 mg tablet,delayed release (DR/EC) 40 mg PO DAILY Qty: 30 0RF sucralfate 1 gram tablet 1 g PO DAILY Patient Comments: TAKE 1 TABLET BY MOUTH TWICE DAILY for ulcers trazodone 50 mg tablet Patient Comments: TAKE 1 TABLET BY MOUTH AT BEDTIME NEEDED FOR INSOMNIA escitalopram oxalate 5 mg tablet Patient Comments: Take 1 tablet by mouth once daily. for depression quetiapine 50 mg tablet Patient Comments: TAKE 1 TABLET BY MOUTH AT BEDTIME for psychosis duloxetine 40 mg capsule,delayed release(DR/EC) PO Patient Comments: TAKE 1 CAPSULE BY MOUTH ONCE DAILY for depression pantoprazole [Protonix] [address] for susp in packet 40 mg PO DAILY Qty: 60 0RF ondansetron 4 mg tablet,disintegrating 4 mg PO Q8H PRN PRN (Reason: Nausea) Qty: 14 0RF sucralfate [Carafate] 100 mg/mL suspension 10 ml PO BID PRN (Reason: epigastric pain) Qty: 400 0RF Primary Care Provider: JESSICA HAZEL Referrals: JESSICA HAZEL [Other] Activity Restrictions/Additional Instructions: Follow-up with your primary care physician within next 3 to 5 days Print Language: Pashto Disposition Disposition: Home, Self Care
--- NOTE | 2023-12-08 01:45 | ED.RN ---
The patient refused an x ray and an iv.
[2023-12-08] MEDS: Mag /Aluminum/Simeth WCH UDC 30 ML ORAL.SUSP PO (02:10)
[2023-12-08] MEDS: Lidocaine 2% Viscous15 ML UDC 15 ML PO (02:10)
[2023-12-08] MEDS: Acetaminophen 500 MG Tablet 1000 MG PO (02:10)
[2023-12-08 02:34] VITALS: BP 123/56; PULSE 71; RESP 16; TEMP 36.3; O2SAT 100
== END 2023-12-08 02:35 | disposition home or self-care (01) ==
PROVIDERS: Emergency Provider Emergency Medicine; Visit Provider Emergency Medicine
DX: M79.604 Pain in right leg (principal); Z59.00 Homelessness unspecified; K21.9 Gastro-esophageal reflux disease without esophagitis; F17.200 Nicotine dependence, unspecified, uncomplicated; R06.00 Dyspnea, unspecified; R42 Dizziness and giddiness; X58.XXXA Exposure to other specified factors, initial encounter; Y93.02 Activity, running; Z79.899 Other long term (current) drug therapy
CPT/HCPCS: 93005; 96360; 99283

== ENCOUNTER 2023-12-09 00:56 | Emergency (ER) | payer MEDICAID, SELFPAY ==
[2023-12-09 00:57] VITALS: BP 144/79; PULSE 114; RESP 16; TEMP 37; O2SAT 98; BMI 19.3
--- NOTE | 2023-12-09 01:07 | EKG12_ITS ---
Test Reason : MHC Blood Pressure : / mmHG Vent. Rate : 110 BPM Atrial Rate : 110 BPM P-R Int : 154 ms QRS Dur : 078 ms QT Int : 350 ms P-R-T Axes : 073 068 066 degrees QTc Int : 473 ms Sinus tachycardia Otherwise normal ECG Confirmed by TRAVIS LITTLE ([id number]), newspaper managing editor ROMMEL DE PAZ ([id number]) on 12/13/2023 8:29:43 AM Referred By: Confirmed By:TRAVIS LITTLE
--- NOTE | 2023-12-09 01:17 | EX.ED.DYSGE1 ---
HPI History of Present Illness Chief Complaint: Mental Health Informant: patient Narrative Narrative: Patient is a 48-year-old male with past medical history of GERD and lupus. He states that he has not seen a doctor or been on his medications for quite some time. He reports that he has been witnessing people watch/talk him and believes that they are out to hurt him. He states that he has witnessed people walking their dogs and then states they begin to modoc him in order to have the dogs attacked him. He states that he does not have homicidal or suicidal ideation. He denies auditory or visual hallucinations. He denies any illicit drug use. He states that he is willing to go to custodial in order to feel safe. [facility] Medical History Arthritis Ulcer GERD (gastroesophageal reflux disease) Lupus Home Medications ?Medication ?Instructions ?Recorded ?Last Taken ?Type NK 12/09/23 Unknown History Allergy/AdvReac Type Severity Reaction Status Date / Time No Known Allergies Allergy Verified 12/09/23 01:02 Family History Other Hypertension Social History household members: other housing: homeless Smoking Status: Current every day smoker tobacco type: cigarettes, cigars and e-cigarettes substance use type: does not use ROS ROS ED Constitutional Constitutional ED: Denies chills or fever(s) Eyes Eyes: Denies blurry vision or change in vision ENT ENT ED: Denies sore throat Cardiovascular Cardiovascular: Denies chest pain Respiratory/Chest Respiratory/Chest: Denies cough or dyspnea Gastrointestinal Gastrointestinal: Denies abdominal pain, diarrhea, nausea or vomiting Genitourinary Genitourinary ED: Denies dysuria Musculoskeletal Musculoskeletal: Denies myalgias Integumentary Denies rash Neurologic Neurologic: Denies headache(s) Psychiatric Psychiatric: Denies suicidal ideation or suicidal thoughts Hematologic/Lymphatic Hematologic/Lymphatic: Denies easy bleeding or easy bruising EXAM Physical Exam Const Vital Signs: 12/09/23 00:57 12/09/23 01:52 Temperature 98.6 F Temperature Source Temporal Pulse Rate 114 H 80 Respiratory Rate 16 16 Blood Pressure 144/79 H Blood Pressure Mean 100 Pulse Ox 98 97 Oxygen Delivery Method Room Air Positive well nourished and well developed General Appearance ED: well developed; Negative for pallor HEENT HEENT Narrative: Normocephalic atraumatic Eyes PERRL and EOMs intact bilaterally General Eye ED: Negative for scleral icterus Neck supple Neck Narrative: No nuchal rigidity or meningeal signs Chest Wall palpation of chest normal Resp normal respiratory effort and clear to auscultation bilaterally Cardio regular rhythm Rate: tachycardic and other Other Details: Tachycardic rate with regular rhythm GI normal to inspection, nondistended, normoactive bowel sounds, non-tender, non-distended and no masses Auscultation: normoactive bowel sounds Palpation: soft Extremity normal to inspection Extremity Narrative: No asymmetric edema no pitting edema negative Homans' sign bilaterally Neuro oriented x3, CN's II-XII intact bilaterally and no sensory deficits noted Sensorium / Orientation: alert Motor Exam: strength 5/5 throughout Psych Psych Narrative: Patient has a nervous/anxious affect He has paranoid delusions He denies homicidal or suicidal ideation Skin no rashes or lesions noted General Skin Exam: Negative for jaundice or pallor MDM MDM MDM Narrative Medical decision making narrative: Patient arrived to the ER hypertensive and slightly tachycardic but was overall stable. He is been seen in the ER on December 05 and . At those visits he did not endorse paranoia or delusions that there were people out to harm him. However as that is his main focus today and he reports that his last 2 visits that he has not been taking any medication or find with a doctor he is displaying that he is not capable of caring for himself. Therefore a psychiatric workup was performed. Lab work revealed patient positive for amphetamines and ecstasy but otherwise no clinically significant. The patient is not requiring chemical or physical sedation he is calm and cooperative but maintains delusions/paranoia that there are multiple people out to harm him. As he reports he has not been providing retirement or food for himself nor been taking his medications he also is demonstrating that he is not capable of caring for himself. This fact coupled with his increased delusions and paranoia warrants a evaluation by crisis center. They did evaluate the patient and agree that he would benefit from inpatient treatment. At this time acceptance is still pending and therefore the patient will be signed out to the day physician Dr. Brennan. However at this time the patient is not requiring chemical or physical sedation his overall workup reveals no clinically significant findings and he is medically cleared for transfer/placement in psychiatric hospital History & Record Review Discussion w/independent historian: Patient Lab Data Attestation: I reviewed the patient's lab results. Labs: Laboratory Results - last 24 hr 12/09/23 12/09/23 01:10 01:20 WBC 4.5 RBC 4.39 L Hgb 12.8 L Hct 38.4 L MCV 87.5 MCH 29.2 MCHC 33.3 RDW Std Deviation 41.8 RDW Coeff of Tristen 13.2 Plt Count 263 MPV 7.8 Immature Gran % (Auto) 0.200 Neut % (Auto) 52.2 Lymph % (Auto) 32.7 [place] % (Auto) 11.3 H Eos % (Auto) 2.9 Baso % (Auto) 0.7 Absolute Neuts (auto) 2.4 Absolute Lymphs (auto) 1.47 Nucleated RBC % 0 Sodium 137 Potassium 3.5 Chloride 102 Carbon Dioxide 27.0 Anion Gap 8 BUN 13 Creatinine 0.84 Estim Creat Clear Calc 109.37 Est GFR (MDRD) Af Amer 126 Est GFR (MDRD) Non-Af 104 BUN/Creatinine Ratio 15.5 Glucose 72 L Calcium 8.9 Urine Opiates Screen NEGATIVE Urine Methadone Screen NEGATIVE Ur Barbiturates Screen NEGATIVE Ur Phencyclidine Scrn NEGATIVE Ur Amphetamines Screen POSITIVE H MDMA (Ecstasy) Screen POSITIVE H U Benzodiazepines Scrn NEGATIVE Urine Cocaine Screen NEGATIVE U Cannabinoids Screen POSITIVE H Ur Drug Screen Comment Ethyl Alcohol 26.0 Management Discussion w/another healthcare provider: Behavioral health Discharge Plan Triage Chief Complaint: Mental Health ED Provider: Anthony Wood Dx/Rx/DC Orders Clinical Impression: Acute paranoia, Lupus (systemic lupus erythematosus), GERD (gastroesophageal reflux disease), Hypertension Prescriptions: No Action NK Primary Care Provider: JESSICA HAZEL Referrals: NOT,DEFINED [Non-Staff] - Print Language: Bahamian
[2023-12-09 01:25] LABS: Absolute Lymphocyte Count 1.47 X10^3/uL (0.83-4.51); Absolute Neutrophil Count 2.4 X10^3/uL (2.0-7.7); Basophil# 0.03 X10^3/uL; Basophil% 0.7 % (0-1); Eosinophil# 0.13 X10^3/uL; Eosinophils% 2.9 % (0-5); Hematocrit 38.4 % (40-54); Hemoglobin 12.8 g/dL (13.0-16.5); Lymphocyte # 1.47 X10^3/ul (0.83-4.51); Lymphocyte % 32.7 % (19-41); Mean Corp Hgb Conc 33.3 g/dL (32-36); Mean Corpuscular Hgb 29.2 pg (27.0-32.0); Mean Corpuscular Volume 87.5 fL (80-94); Mean Platelet Vol. 7.8 fl (6.2-12.0); Monocyte# 0.51 X10^3/uL; Monocyte% 11.3 % (0-10); NRBC Flagged by Analyzer 0 % (0-5); Neutrophil # 2.35 X10^3/uL (2.7-7.7); Neutrophil % 52.2 % (47-70); Platelet Count 263 K/mm3 (150-450); RBC Distribution Width CV 13.2 % (11.6-14.6); RBC Distribution Width SD 41.8 fl (35.1-43.9); Red Blood Count 4.39 M/mm3 (4.6-6.2); White Blood Count 4.5 K/mm3 (4.4-11.0)
[2023-12-09 01:42] LABS: Anion Gap 8 (5-15); BUN 13 mg/dL (7-18); BUN/Creat Ratio 15.5 RATIO (10-20); Calcium,Total 8.9 mg/dL (8.5-10.1); Chloride 102 mmol/L (98-107); Creatinine, Serum 0.84 mg/dL (0.70-1.30); EST Glomerular Filtration Rate 104 mL/min (>60); Est Glom Filt Rate - Afr Amer 126 mL/min (>60); Estimated Creatinine Clearance 109.37 ml/min; Glucose 72 mg/dL (74-106); Potassium 3.5 mmol/L (3.5-5.1); Sodium Level 137 mmol/L (136-145)
[2023-12-09 01:48] LABS: Amphetamine Urine VISTA POSITIVE (<1000 ng/mL); Barbiturate Urine VISTA NEGATIVE (< 200 ng/mL); Benzodiazepine Urine VISTA NEGATIVE (< 200 ng/mL); Cocaine Urine VISTA NEGATIVE (< 300 ng/mL); Ecstacy Urine VISTA POSITIVE (< 500 ng/mL); Methadone Urine VISTA NEGATIVE (< 300 ng/mL); PCP Urine VISTA NEGATIVE (< 25 ng/mL); THC Urine VISTA POSITIVE (< 50 ng/mL); Vista UDS pH Range 5
[2023-12-09 01:52] VITALS: PULSE 80; RESP 16; O2SAT 97
[2023-12-09 10:28] VITALS: BP 128/73; PULSE 64; RESP 15; TEMP 36.4; O2SAT 97
== END 2023-12-09 15:53 ==
LOC: ED 01:31
PROVIDERS: Emergency Provider Emergency Medicine; Visit Provider Emergency Medicine
DX: F22 Delusional disorders (principal); M32.9 Systemic lupus erythematosus, unspecified; K21.9 Gastro-esophageal reflux disease without esophagitis; I10 Essential (primary) hypertension; F17.210 Nicotine dependence, cigarettes, uncomplicated; Z59.00 Homelessness unspecified; F17.290 Nicotine dependence, other tobacco product, uncomplicated
CPT/HCPCS: 80048; 80307; 82077; 85025; 93005; 99283

== ENCOUNTER 2023-12-24 10:10 | Emergency (ER) | payer MEDICAID, SELFPAY ==
[2023-12-24 10:11] VITALS: BP 106/69; PULSE 127; RESP 18; TEMP 36.4; O2SAT 97; BMI 20.1
--- NOTE | 2023-12-24 10:33 | ED.RN ---
pt states he is not concerned with the stomach pain, to this nurse, but he thinks he was discharged from the mental institute he was in last week too early. [facility] and knows it is true. Dr. Clark made aware of pt's concerns.
[2023-12-24] MEDS: Ondansetron 4 MG/2 ML Vial IV (10:48)
[2023-12-24] MEDS: 0.9% Normal Saline (1000mL) 1,000 ML 999 ML IV (10:48)
[2023-12-24] MEDS: AMOXICILLIN 500 MG CAPSULE PO (10:48)
[2023-12-24 11:09] LABS: Absolute Lymphocyte Count 1.67 X10^3/uL (0.83-4.51); Absolute Neutrophil Count 4.1 X10^3/uL (2.0-7.7); Basophil# 0.01 X10^3/uL; Basophil% 0.2 % (0-1); Eosinophil# 0.09 X10^3/uL; Eosinophils% 1.5 % (0-5); Hematocrit 39.8 % (40-54); Lymphocyte # 1.67 X10^3/ul (0.83-4.51); Lymphocyte % 26.9 % (19-41); Mean Corp Hgb Conc 32.7 g/dL (32-36); Mean Corpuscular Volume 88.8 fL (80-94); Monocyte# 0.36 X10^3/uL; Monocyte% 5.8 % (0-10); NRBC Flagged by Analyzer 0 % (0-5); Neutrophil # 4.05 X10^3/uL (2.7-7.7); Neutrophil % 65.3 % (47-70); Platelet Count 245 K/mm3 (150-450); RBC Distribution Width CV 13.4 % (11.6-14.6); RBC Distribution Width SD 44.5 fl (35.1-43.9); Red Blood Count 4.48 M/mm3 (4.6-6.2); White Blood Count 6.2 K/mm3 (4.4-11.0)
[2023-12-24 11:13] LABS: Anion Gap 8 (5-15); BUN 14 mg/dL (7-18); BUN/Creat Ratio 14.8 RATIO (10-20); Calcium,Total 9.3 mg/dL (8.5-10.1); Chloride 104 mmol/L (98-107); Creatinine, Serum 0.94 mg/dL (0.70-1.30); EST Glomerular Filtration Rate 90 mL/min (>60); Est Glom Filt Rate - Afr Amer 109 mL/min (>60); Estimated Creatinine Clearance 99.27 ml/min; Glucose 114 mg/dL (74-106); Potassium 3.3 mmol/L (3.5-5.1); Sodium Level 140 mmol/L (136-145)
[2023-12-24 11:37] LABS: Alcohol, Blood (Medical)-Serum < 3.0 mg/dL
[2023-12-24 11:42] LABS: Amphetamine Urine VISTA POSITIVE (<1000 ng/mL); Barbiturate Urine VISTA NEGATIVE (< 200 ng/mL); Benzodiazepine Urine VISTA NEGATIVE (< 200 ng/mL); Cocaine Urine VISTA NEGATIVE (< 300 ng/mL); Ecstacy Urine VISTA NEGATIVE (< 500 ng/mL); Methadone Urine VISTA NEGATIVE (< 300 ng/mL); PCP Urine VISTA NEGATIVE (< 25 ng/mL); THC Urine VISTA POSITIVE (< 50 ng/mL); Vista UDS pH Range 5
--- NOTE | 2023-12-24 11:58 | EX.ED.DYSGE1 ---
HPI History of Present Illness Chief Complaint: Abd Pain Informant: patient Narrative Narrative: 48-year-old male states he has been out of psychiatric hospital for about 4 days and he states he does not feel like he has been ready to go. Since he has been out he has been having trouble deciphering hallucinations from reality. States he is seeing and hearing things, they are nonspecific, he is having no command hallucinations, thoughts of self-harm or harming others, he is insightful and all of this. He states he just filled his prescriptions that were given to him yesterday, and he states as a separate issue he also has what he thinks is a stomach ulcer that he is on omeprazole and sucralfate for. States he was given some food this morning he has not had a lot to eat, but he immediately vomited everything up. He denies having any abdominal pain right now. As another separate issue, he has a tender swollen area on his hard palate on the right that is draining anything to may have a dental abscess. [facility] Medical History Arthritis Ulcer GERD (gastroesophageal reflux disease) Lupus Home Medications ?Medication ?Instructions ?Recorded ?Last Taken ?Type NK 12/09/23 Unknown History Allergy/AdvReac Type Severity Reaction Status Date / Time No Known Allergies Allergy Verified 12/24/23 10:11 Family History Other Hypertension Social History household members: other housing: homeless Smoking Status: Current every day smoker tobacco type: cigarettes, cigars and e-cigarettes substance use type: does not use ROS ROS ED Constitutional Constitutional ED: Denies chills or fever(s) Eyes Eyes: Denies change in vision or diplopia ENT ENT ED: Reports other Details: Dental pain and abscess see HPI ; Denies rhinorrhea or sore throat Cardiovascular Cardiovascular: Denies chest pain or palpitations Respiratory/Chest Respiratory/Chest: Denies cough or dyspnea Gastrointestinal Gastrointestinal: Reports nausea and vomiting; Denies abdominal pain, diarrhea, hematemesis, hematochezia or melena Genitourinary Genitourinary ED: Denies dysuria or hematuria Musculoskeletal Musculoskeletal: Denies back pain or neck pain Integumentary Denies abscess or rash Neurologic Neurologic: Denies headache(s), paresthesias or weakness Psychiatric Psychiatric: Reports anxiety and hallucinations; Denies homicidal ideation, suicidal ideation or suicidal thoughts EXAM Physical Exam Const Vital Signs: 12/24/23 10:11 12/24/23 12:10 12/24/23 14:00 Temperature 97.5 F L Temperature Source Temporal Pulse Rate 127 H 64 88 Respiratory Rate 18 16 16 Blood Pressure 106/69 104/68 114/71 Blood Pressure Mean 81 80 85 Pulse Ox 97 94 99 Oxygen Delivery Method Room Air Room Air Room Air 12/24/23 22:04 Temperature Temperature Source Pulse Rate 89 Respiratory Rate 16 Blood Pressure 107/60 Blood Pressure Mean 75 Pulse Ox 96 Oxygen Delivery Method Room Air Positive well nourished and well developed General Appearance ED: well developed and NAD HEENT Reports moist mucous membranes HEENT Narrative: Tender swollen 1.5 cm dental abscess hard palate behind the right frontal incisors and cuspid, with gentle palpation there is active serous drainage from the nearby tooth that is decayed down to the gumline. normocephalic and atraumatic Eyes PERRL and EOMs intact bilaterally Neck full ROM and supple Chest Wall inspection of chest normal and palpation of chest normal Resp normal respiratory effort and clear to auscultation bilaterally Cardio regular rate, regular rhythm and no murmurs GI non-tender and non-distended Auscultation: normoactive bowel sounds Palpation: soft Back/Spine no CVA tenderness General Back: other FROM Extremity normal to inspection General Extremety ED: Negative for edema, pulses abnormal or tenderness General Extremity: Negative for edema or pulses abnormal Neuro oriented x3, CN's II-XII intact bilaterally and no sensory deficits noted Sensorium / Orientation: awake and alert Motor Exam: strength 5/5 throughout Psych Psych Narrative: Anxious. Insightful. Not suicidal homicidal. Not acting on any hallucinations or delusional at this time. Skin no rashes or lesions noted and no wounds MDM MDM MDM Narrative Medical decision making narrative: Reviewed labs and alcohol and toxicology, patient is medically cleared, he is wanting crisis to talk with him. He feels like he needs to talk to somebody. He feels like he needs to be readmitted to psychiatry although not sure if that is the case. I think he needs to continue the medications, since he just got the prescriptions filled, it may take more than a day or 2 taking the medications in order for psychiatric symptoms to resolve and it does not sound like he is doing anything dangerous. He is almost and has been roaming around the area, trying to find places to sleep and states that it took him a while but I had to get to the hospital today. Crisis evaluated patient, he is making threats to harm others in order to get himself thrown into halfway because he does not feel safe. She is looking for placement. [facility] requesting CPK, EKG, those were performed and normal. Lab Data Attestation: I reviewed the patient's lab results. Labs: Laboratory Results - last 24 hr 12/24/23 12/24/23 10:44 11:15 WBC 6.2 RBC 4.48 L Hgb 13.0 Hct 39.8 L MCV 88.8 MCH 29.0 MCHC 32.7 RDW Std Deviation 44.5 H RDW Coeff of Tristen 13.4 Plt Count 245 MPV 8.0 Immature Gran % (Auto) 0.300 Neut % (Auto) 65.3 Lymph % (Auto) 26.9 [facility] % (Auto) 5.8 Eos % (Auto) 1.5 Baso % (Auto) 0.2 Absolute Neuts (auto) 4.1 Absolute Lymphs (auto) 1.67 Nucleated RBC % 0 Sodium 140 Potassium 3.3 L Chloride 104 Carbon Dioxide 28.0 Anion Gap 8 BUN 14 Creatinine 0.94 Estim Creat Clear Calc 99.27 Est GFR (MDRD) Af Amer 109 Est GFR (MDRD) Non-Af 90 BUN/Creatinine Ratio 14.8 Glucose 114 H Calcium 9.3 Total Creatine Kinase 302 Urine Opiates Screen NEGATIVE Urine Methadone Screen NEGATIVE Ur Barbiturates Screen NEGATIVE Ur Phencyclidine Scrn NEGATIVE Ur Amphetamines Screen POSITIVE H MDMA (Ecstasy) Screen NEGATIVE U Benzodiazepines Scrn NEGATIVE Urine Cocaine Screen NEGATIVE U Cannabinoids Screen POSITIVE H Ur Drug Screen Comment Ethyl Alcohol < 3.0 Rhythm Strip Rhythm Strip: Sinus Rhythm Rate: 85 Ectopy: None EKG Initial EKG: Attestation: I personally reviewed and interpreted this EKG as follows: Interpretation: Sinus Rhythm and No Acute Injury Pattern Management Discussion w/another healthcare provider: trailhead maintenance worker/Case management Discharge Plan Triage Chief Complaint: Abd Pain ED Provider: Enrike Clark Dx/Rx/DC Orders Clinical Impression: Acute psychosis Prescriptions: No Action NK Primary Care Provider: JESSICA HAZEL Referrals: JESSICA HAZEL [Other] Print Language: Icelandic Disposition Disposition: Psychiatric Hospital or Unit
[2023-12-24 12:10] VITALS: BP 104/68; PULSE 64; RESP 16; O2SAT 94
[2023-12-24 14:00] VITALS: BP 114/71; PULSE 88; RESP 16; O2SAT 99
--- NOTE | 2023-12-24 16:38 | NURSING ---
FAXED CHART TO [facility]
--- NOTE | 2023-12-24 21:22 | EKG12_ITS ---
Test Reason : MHC Blood Pressure : / mmHG Vent. Rate : 090 BPM Atrial Rate : 090 BPM P-R Int : 172 ms QRS Dur : 078 ms QT Int : 358 ms P-R-T Axes : 052 066 068 degrees QTc Int : 437 ms Normal sinus rhythm Normal ECG Confirmed by Monroe Chang ([id number]), copy editor ROMMEL DE PAZ ([id number]) on 12/26/2023 10:23:39 AM Referred By: Confirmed By:Monroe Chang
[2023-12-24 21:47] LABS: CPK Total, Creatine Kinase 302 U/L (39-308)
[2023-12-24 22:04] VITALS: BP 107/60; PULSE 89; RESP 16; O2SAT 96
[2023-12-25 02:29] VITALS: BP 141/74; PULSE 74; RESP 16; TEMP 36.6; O2SAT 99
== END 2023-12-25 02:30 ==
PROVIDERS: Emergency Provider Emergency Medicine; Visit Provider Emergency Medicine
DX: R10.9 Unspecified abdominal pain (principal); F23 Brief psychotic disorder; Z59.00 Homelessness unspecified; F17.210 Nicotine dependence, cigarettes, uncomplicated; Z79.899 Other long term (current) drug therapy; K21.9 Gastro-esophageal reflux disease without esophagitis; F17.290 Nicotine dependence, other tobacco product, uncomplicated
CPT/HCPCS: 80048; 80307; 82077; 82550; 85025; 93005; 96361; 96374; 99285; J7030; A4216; J2405

== ENCOUNTER 2024-01-15 04:25 | Emergency (ER) | payer MEDICAID, SELFPAY ==
[2024-01-15 04:26] VITALS: BP 116/80; PULSE 82; RESP 16; TEMP 36.7; O2SAT 97; BMI 21.6
--- NOTE | 2024-01-15 04:50 | EDS_ITS ---
HPI HPI - Psych History of Present Illness Chief Complaint: Mental Health Informant: patient Narrative Narrative: Brought by EMS for mental health evaluation. History of psychosis with both auditory and visual hallucinations however primary auditory. He states the voices put him down. He states statements like game over. Denies any specific commands. He sometimes he sees things that coordinates with the voices. He cannot describe anything specific. He denies suicidal or homicidal ideations. He states currently homeless again for 3 days. He was kicked out of another individual's home when he had agreements to help with food. He states due to his lupus he was told to go pick up operator alcohol and was not able to therefore is kicked out. He states he stopped his medications due to causing increasing pain in his stomach. He uses marijuana. He also states the medication he takes cause him to be more sleepy and with him being homeless he had fear of people around him. Went reviewed his medications 1 was hydroxyzine as needed the other was Aripiprazole, he had a 10 mg dosing to be taken at night and another bottle noted 15 mg daily. He states he thinks he would take them both at 1 time. This was dated 15 days apart. Review of records, seen a month ago after being discharged after day and then readmitted. Likely prescriptions written pre and post ED visit the last time. Reports history of stomach ulcers denies any black or bloody stools. Reports joint pain due to his lupus. Prior similar symptoms: Yes [facility] Medical History Arthritis Ulcer GERD (gastroesophageal reflux disease) Lupus Home Medications ?Medication ?Instructions ?Recorded ?Last Taken ?Type aripiprazole 10 mg tablet 10 mg PO QHS 12/24/23 Unknown History ascorbic acid (vitamin C) 500 mg 500 mg PO DAILY 12/24/23 Unknown History tablet (Vitamin C) cholecalciferol (vitamin D3) 50 50 mcg PO DAILY 12/24/23 Unknown History mcg (2,000 unit) tablet hydroxyzine HCl 50 mg tablet 50 mg PO Q6H PRN PRN anxiety 12/24/23 Unknown History mirtazapine 15 mg tablet 15 mg PO QHS 12/24/23 Unknown History omeprazole 20 mg capsule,delayed 20 mg PO DAILY 12/24/23 Unknown History release prazosin 1 mg capsule 1 mg PO QHS 12/24/23 Unknown History sucralfate 1 gram tablet 1 g PO TID 12/24/23 Unknown History Allergy/AdvReac Type Severity Reaction Status Date / Time No Known Allergies Allergy Verified 12/24/23 10:11 Family History Other Hypertension Social History household members: other housing: homeless Smoking Status: Current every day smoker tobacco type: cigarettes, cigars and e-cigarettes substance use type: does not use ROS ROS ED Constitutional Constitutional ED: Denies chills, fever(s) or sweats Eyes Eyes: Denies change in vision ENT ENT ED: Denies dysphagia or sore throat Cardiovascular Cardiovascular: Denies chest pain, leg edema, palpitations or racing heartbeat Respiratory/Chest Respiratory/Chest: Denies cough, dyspnea or dyspnea on exertion Gastrointestinal Gastrointestinal: Denies abdominal pain, diarrhea, nausea or vomiting Genitourinary Genitourinary ED: Denies dysuria, hematuria or urinary frequency Musculoskeletal Musculoskeletal: Reports arthralgias; Denies back pain, extremity pain or neck pain Integumentary Denies rash or wounds Neurologic Neurologic: Denies headache(s), paresthesias or weakness Psychiatric Psychiatric: Reports other Details: Hallucinations ; Denies suicidal ideation or suicidal thoughts EXAM Physical Exam Const Vital Signs: 01/15/24 04:26 01/15/24 06:25 Temperature 98.1 F 98.1 F Temperature Source Oral Oral Pulse Rate 82 77 Respiratory Rate 16 16 Blood Pressure 116/80 120/77 Blood Pressure Mean 92 91 Pulse Ox 97 98 Oxygen Delivery Method Room Air Room Air Positive well nourished and well developed General Appearance ED: well developed and NAD HEENT Reports moist mucous membranes normocephalic and atraumatic Eyes EOMs intact bilaterally and conjunctivae normal General Eye ED: Yes normal appearance of both eyes Neck no lymphadenopathy and supple General: Negative for tenderness Chest Wall Chest: Negative for tenderness Resp normal respiratory effort and normal air movement Effort and Inspection: symmetric chest movement; Negative for respiratory distress Cardio regular rate, regular rhythm and no murmurs Peripheral Pulses: pulses 2+ throughout GI normal to inspection, nondistended, normoactive bowel sounds and non-tender Palpation: Negative for guarding or rebound tenderness present Back/Spine no CVA tenderness and no thoracic nor lumbar tenderness Extremity normal to inspection Extremity Narrative: No swelling of joints knee or ankle. General Extremety ED: Negative for edema or tenderness General Extremity: Negative for edema Neuro oriented x3 and no sensory deficits noted Sensorium / Orientation: awake and alert Psych Psych Narrative: Flat affect, admits to auditory and visual hallucinations. Denies suicidal or homicidal ideations. Skin no rashes or lesions noted and no wounds MDM MDM MDM Narrative Medical decision making narrative: Interventions / MDM: Differential diagnosis: Psychosis, hallucinations, arthralgias Diagnosis considered but do not suspect: No clinical septic joint My EKG interpretation: N/A Imaging independently reviewed and interpreted by myself: N/A External documents reviewed: N/A Test considered but not ordered:N/A ED course: History psychosis with increasing hallucinations. Combination of noncompliance stating would cause stomach to be upset and symptoms of somnolence. Will obtain medical clearance labs. Will have patient evaluated by crisis. 0620: Alcohol negative. Toxicology screen positive for THC and amphetamines. Has had these positive test in the past. He states admits to recreational marijuana use which are shared by people. He states however as he stated that there is exposures to amphetamines with inhalation. He denies using it specifically as he states he cannot afford it. He denies suicidal homicidal ideations. He is requesting evaluation by crisis. He is medically cleared. Discussing his psychiatric diagnoses he states only depression. 0700: Patient will be signed out to oncoming physician. Re-evaluation: stable Disposition discussed with patient/family/significant other: Case discussed with consulting clinician: N/A This note was generated with [employer] dictation software. It may contain incorrect words, spelling, and punctuation that were not noted in checking the note before signing. Lab Data Attestation: I reviewed the patient's lab results. Labs: Laboratory Results - last 24 hr 01/15/24 01/15/24 05:02 05:30 WBC 3.4 L RBC 4.24 L Hgb 12.3 L Hct 38.4 L MCV 90.6 MCH 29.0 MCHC 32.0 RDW Std Deviation 44.4 H RDW Coeff of Tristen 13.4 Plt Count 198 MPV 8.4 Immature Gran % (Auto) 0.300 Neut % (Auto) 40.6 L Lymph % (Auto) 45.1 H [place] % (Auto) 10.2 H Eos % (Auto) 3.5 Baso % (Auto) 0.3 Absolute Neuts (auto) 1.4 L Absolute Lymphs (auto) 1.55 Nucleated RBC % 0 Sodium 139 Potassium 3.8 Chloride 106 Carbon Dioxide 31.0 Anion Gap 2 L BUN 9 Creatinine 0.75 Estim Creat Clear Calc 132.29 Est GFR (MDRD) Af Amer 143 Est GFR (MDRD) Non-Af 118 BUN/Creatinine Ratio 12.0 Glucose 84 Calcium 9.0 Urine Opiates Screen NEGATIVE Urine Methadone Screen NEGATIVE Ur Barbiturates Screen NEGATIVE Ur Phencyclidine Scrn NEGATIVE Ur Amphetamines Screen POSITIVE H MDMA (Ecstasy) Screen NEGATIVE U Benzodiazepines Scrn NEGATIVE Urine Cocaine Screen NEGATIVE U Cannabinoids Screen POSITIVE H Ur Drug Screen Comment Ethyl Alcohol < 3.0 Discharge Plan Triage Chief Complaint: Mental Health ED Provider: Kt Ferrer Dx/Rx/DC Orders Clinical Impression: Depression, Hallucinations, Polysubstance (excluding opioids) dependence Prescriptions: No Action hydroxyzine HCl 50 mg tablet 50 mg PO Q6H PRN PRN (Reason: anxiety) omeprazole 20 mg capsule,delayed release(DR/EC) 20 mg PO DAILY mirtazapine 15 mg tablet 15 mg PO QHS aripiprazole 10 mg tablet 10 mg PO QHS prazosin 1 mg capsule 1 mg PO QHS sucralfate 1 gram tablet 1 g PO TID cholecalciferol (vitamin D3) 50 mcg (2,000 unit) tablet 50 mcg PO DAILY ascorbic acid (vitamin C) [Vitamin C] 500 mg tablet 500 mg PO DAILY Primary Care Provider: JESSICA HAZEL Referrals: JESSICA HAZEL [Other] Print Language: Vietnamese
[2024-01-15 05:17] LABS: Absolute Lymphocyte Count 1.55 X10^3/uL (0.83-4.51); Absolute Neutrophil Count 1.4 X10^3/uL (2.0-7.7); Basophil# 0.01 X10^3/uL; Basophil% 0.3 % (0-1); Eosinophil# 0.12 X10^3/uL; Eosinophils% 3.5 % (0-5); Hematocrit 38.4 % (40-54); Hemoglobin 12.3 g/dL (13.0-16.5); Lymphocyte # 1.55 X10^3/ul (0.83-4.51); Lymphocyte % 45.1 % (19-41); Mean Corpuscular Volume 90.6 fL (80-94); Mean Platelet Vol. 8.4 fl (6.2-12.0); Monocyte# 0.35 X10^3/uL; Monocyte% 10.2 % (0-10); NRBC Flagged by Analyzer 0 % (0-5); Neutrophil % 40.6 % (47-70); Platelet Count 198 K/mm3 (150-450); RBC Distribution Width CV 13.4 % (11.6-14.6); RBC Distribution Width SD 44.4 fl (35.1-43.9); Red Blood Count 4.24 M/mm3 (4.6-6.2); White Blood Count 3.4 K/mm3 (4.4-11.0)
[2024-01-15 05:30] LABS: Alcohol, Blood (Medical)-Serum < 3.0 mg/dL
[2024-01-15 05:32] LABS: Anion Gap 2 (5-15); BUN 9 mg/dL (7-18); Chloride 106 mmol/L (98-107); Creatinine, Serum 0.75 mg/dL (0.70-1.30); EST Glomerular Filtration Rate 118 mL/min (>60); Est Glom Filt Rate - Afr Amer 143 mL/min (>60); Estimated Creatinine Clearance 132.29 ml/min; Glucose 84 mg/dL (74-106); Potassium 3.8 mmol/L (3.5-5.1); Sodium Level 139 mmol/L (136-145)
[2024-01-15 06:11] LABS: Amphetamine Urine VISTA POSITIVE (<1000 ng/mL); Barbiturate Urine VISTA NEGATIVE (< 200 ng/mL); Benzodiazepine Urine VISTA NEGATIVE (< 200 ng/mL); Cocaine Urine VISTA NEGATIVE (< 300 ng/mL); Ecstacy Urine VISTA NEGATIVE (< 500 ng/mL); Methadone Urine VISTA NEGATIVE (< 300 ng/mL); PCP Urine VISTA NEGATIVE (< 25 ng/mL); THC Urine VISTA POSITIVE (< 50 ng/mL); Vista UDS pH Range 7
[2024-01-15 06:25] VITALS: BP 120/77; PULSE 77; RESP 16; TEMP 36.7; O2SAT 98
--- NOTE | 2024-01-15 07:01 | NURSING ---
faxed chart to crisis
--- NOTE | 2024-01-15 07:03 | NURSING ---
LEFT MESSAGE ON CRISIS PHONE
--- NOTE | 2024-01-15 07:28 | NURSING ---
CALLED CRISIS, TALKED TO DEVON. SHE WILL BE OVER
[2024-01-15 08:00] VITALS: BP 124/74; PULSE 77; RESP 14; O2SAT 99
--- NOTE | 2024-01-15 10:02 | NURSING ---
ACCEPTED AT [facility] [address] LEON NURSE TO NURSE [phone] OPT 2
--- NOTE | 2024-01-15 10:16 | NURSING ---
CALLED [facility], ETA IS 1 HR
[2024-01-15 11:25] VITALS: BP 120/78; PULSE 80; RESP 16; TEMP 36.6; O2SAT 100
== END 2024-01-15 11:57 ==
PROVIDERS: Emergency Provider Emergency Medicine; Visit Provider Emergency Medicine
DX: F32.A Depression, unspecified (principal); F19.14 Other psychoactive substance abuse with psychoactive substance-induced mood disorder; F12.90 Cannabis use, unspecified, uncomplicated; F17.210 Nicotine dependence, cigarettes, uncomplicated; Z59.00 Homelessness unspecified; K21.9 Gastro-esophageal reflux disease without esophagitis; R44.3 Hallucinations, unspecified
CPT/HCPCS: 80048; 80307; 82077; 85025; 99283; A4216

== ENCOUNTER 2024-02-29 11:51 | Emergency (ER) | payer MEDICAID, SELFPAY ==
[2024-02-29 11:53] VITALS: BP 139/96; PULSE 87; RESP 16; TEMP 36.6; O2SAT 99; BMI 21.7
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
[2024-02-29 12:47] LABS: Absolute Lymphocyte Count 1.56 X10^3/uL (0.83-4.51); Basophil# 0.03 X10^3/uL; Basophil% 0.6 % (0-1); Eosinophil# 0.15 X10^3/uL; Hematocrit 38.4 % (40-54); Hemoglobin 12.8 g/dL (13.0-16.5); Lymphocyte # 1.56 X10^3/ul (0.83-4.51); Lymphocyte % 30.7 % (19-41); Mean Corp Hgb Conc 33.3 g/dL (32-36); Mean Corpuscular Volume 89.9 fL (80-94); Mean Platelet Vol. 8.5 fl (6.2-12.0); Monocyte# 0.33 X10^3/uL; Monocyte% 6.5 % (0-10); NRBC Flagged by Analyzer 0 % (0-5); Platelet Count 184 K/mm3 (150-450); RBC Distribution Width CV 12.9 % (11.6-14.6); RBC Distribution Width SD 42.4 fl (35.1-43.9); Red Blood Count 4.27 M/mm3 (4.6-6.2); White Blood Count 5.1 K/mm3 (4.4-11.0)
[2024-02-29 12:52] VITALS: BP 128/72; PULSE 79; RESP 18; O2SAT 99
[2024-02-29 13:16] LABS: Anion Gap 4 (5-15); BUN 9 mg/dL (7-18); Chloride 105 mmol/L (98-107); Creatinine, Serum 0.75 mg/dL (0.70-1.30); EST Glomerular Filtration Rate 118 mL/min (>60); Est Glom Filt Rate - Afr Amer 143 mL/min (>60); Glucose 133 mg/dL (74-106); Potassium 3.8 mmol/L (3.5-5.1); Sodium Level 138 mmol/L (136-145)
[2024-02-29 13:18] LABS: Alcohol, Blood (Medical)-Serum < 3.0 mg/dL
[2024-02-29 13:57] LABS: Amphetamine Urine VISTA NEGATIVE (<1000 ng/mL); Barbiturate Urine VISTA NEGATIVE (< 200 ng/mL); Benzodiazepine Urine VISTA NEGATIVE (< 200 ng/mL); Cocaine Urine VISTA NEGATIVE (< 300 ng/mL); Ecstacy Urine VISTA NEGATIVE (< 500 ng/mL); Methadone Urine VISTA NEGATIVE (< 300 ng/mL); PCP Urine VISTA NEGATIVE (< 25 ng/mL); THC Urine VISTA POSITIVE (< 50 ng/mL); Vista UDS pH Range 7
[2024-02-29] MEDS: Lidocaine 2% Viscous15 ML UDC 15 ML PO (14:17)
[2024-02-29] MEDS: Ondansetron ODT 4 MG Tablet PO (14:17)
[2024-02-29] MEDS: Mag Hydrox/Al Hydrox/Simeth 30 ML UDC PO (14:17)
[2024-02-29 15:12] VITALS: BP 130/76; PULSE 81; RESP 16; O2SAT 98
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
--- NOTE | 2024-02-29 17:18 | CM.ED ---
Social Work Phone call placed to [facility] to see if they had any open beds, they stated they were full tonight but would have a bed available tomorrow, Call placed to [facility] to see if they had any beds open, they do and a referral was sent. Plan: Inpatient psychiatric hospitalization pending acceptance JESUS Swartz, FACE MAN
--- NOTE | 2024-02-29 17:20 | CM.ED ---
Social Work [facility] called and accepted patient. Will be going to adult unit, , bed [address]B. Admitting is Dr. Jaramillo. Nurse to nurse ph: [phone], all information given to director community organization. [place] slip faxed. Patient notified of admission to [facility], accepting of same. Daphne Etienne, TAR HEATER OPERATOR, WAREHOUSE PACKAGING SUPERVISOR
== END 2024-02-29 23:24 ==
PROVIDERS: Emergency Provider Emergency Medicine; Visit Provider Emergency Medicine
DX: F20.9 Schizophrenia, unspecified (principal); F17.210 Nicotine dependence, cigarettes, uncomplicated; Z59.00 Homelessness unspecified; Z91.148 Patient's other noncompliance with medication regimen for other reason; Z79.899 Other long term (current) drug therapy; K21.9 Gastro-esophageal reflux disease without esophagitis; F17.290 Nicotine dependence, other tobacco product, uncomplicated; Z86.59 Personal history of other mental and behavioral disorders
CPT/HCPCS: 80048; 80307; 82077; 85025; 99284